=== PATIENT | female | born 1960 | race Caucasian/White ===

== ENCOUNTER → 2017-10-07 | Outpatient (CLI) | payer MEDICARE, BC ==
[~2017-10-07] MED LIST: ACYC5CRE2 TP; BETA15CR3 TP; CLC500CT PO; CYAN100053 IJ; DIAZ-345 PO; DIPH25TA82 PO; DOXE10CA PO; DULO60CA6 PO; EST45C VG; ESTR0.9T PO; ESTR42.52 VG; ESTRATEST HS PO; FRS325T PO; HYDR1TAB8 PO; LEVO75TA57 PO; LIOT5TAB6 PO; MELO7.5T PO; METF-380 PO; MULT-1029 PO; POLY119P PO; PREG75CA PO; RANI75TA30 PO; TERC45CR VG; TIZA4CAP PO; TR025C15 TOP
--- NOTE | 2017-10-07 08:22 | Diagnostic Imaging Report ---
INDICATION: Elevated liver enzymes. FINDINGS: The liver is slightly enlarged at 18.5 cm. No discrete liver mass is identified. The portal vein is patent and demonstrates normal direction of flow. The gallbladder is surgically absent. No biliary ductal dilatation is seen. The pancreas does appear to be somewhat obscured. Right kidney is unremarkable. There is no ascites. IMPRESSION: 1. Mild hepatomegaly. 2. Status post cholecystectomy. No acute feature is detected. Dictated by: Dictated on workstation # [id number]
== END ==
LOC: RAD 07:20
PROVIDERS: ATTEND Nurse Practitioner Family
DX: R16.0 Hepatomegaly, not elsewhere classified (principal); R74.0 Nonspecific elevation of levels of transaminase and lactic acid dehydrogenase [LDH]; Z90.49 Acquired absence of other specified parts of digestive tract
CPT/HCPCS: 76705

== ENCOUNTER → 2018-05-03 | Outpatient (CLI) | payer MEDICARE, BC | LOC: CARD 09:54 | PROVIDERS: ATTEND Internal Medicine Interventional Cardiology | DX: E11.9 Type 2 diabetes mellitus without complications (principal); R07.9 Chest pain, unspecified; E78.01 Familial hypercholesterolemia | CPT/HCPCS: 93306 ==

== ENCOUNTER → 2018-05-26 | Outpatient (CLI) | payer MEDICARE, BC ==
[~2018-05-26] VITALS: Ht 170.2 cm; Wt 93.9 kg
[~2018-05-26] MED LIST changes: +ATOR10TA PO; +BENZ0.5T42 PO; +BREX0.5T PO; +CANA100T PO; +CATHETER FLUSH 10 ML SYR IV PRN; +DOCU-143 PO; +DOXE10CA29 PO; +DULO60CA58 PO; +LEVO75TA6 PO; +MELA3TAB PO; +METF-397 PO; +METH750T3 PO; +OXYC10TA7 PO; +PANT40TA2 PO; +POLY17PO6 PO; +PREG150C PO; +REGADENOSON 0.4 MG/5 ML SYR (LEXISCAN) IV ONE; +RIVA1PAT TD; +TR025C15 TP; +[UNRECOGNIZED DRUG - CODE] PO
[2018-05-26 09:33] VITALS: BP 132/84
[2018-05-26 09:34] VITALS: BP 141/88
[2018-05-26 14:14] VITALS: BP 132/84
--- NOTE | 2018-05-26 14:14 | Cardiology Stress Test Report ---
Stress Test Report Type of NM Stress Test: Test Type: LEXISCAN 0.4MG/5ML Date of Procedure/Referring: Date of Procedure: May 26, 2018 PCP Enrique Sparrow MD Admitting Physician Magnolia Yang MD Indications: Chest pain, diabetes, familial hyperlipidemia. Baseline Heart Rate: 77 Baseline Blood Pressure: Blood Pressure Systolic: 132 Blood Pressure Diastolic: 84 Baseline EKG: Baseline EKG: sinus rhythm Summary & Conclusion: Summary: The patient was brought to the stress lab after informed consent was taken. Stress test was performed according to the Lexiscan protocol. 0.4 mg of IV Lexiscan was given. Low-grade exercise was performed. Baseline EKG showed sinus rhythm at 77 BPM. Initial blood pressure was 132/84 mmHg. Maximum heart rate was 101 bpm and blood pressure 141/88 mmHg. Patient did not have any chest pain, arrhythmias or ST segment changes during the stress test. 10.43 mCi of Myoview were given for rest imaging and 30.6 mCi of Myoview given for stress imaging. Transient ischemic dilatation score 1.04 , EF 71 percent. Normal wall motion. Mild small anterior reversible defect. SSS 14, SRS 7, SDS 6. Conclusion: Pharmacological stress test was negative for ischemia. Normal LV function with no wall motion abnormalities. Evidence of anterior ischemia. Coronary angiography is recommended. Enrique SPARROW MD May 26, 2018 2:14 pm
== END ==
LOC: CARD 08:00
PROVIDERS: ATTEND Internal Medicine Interventional Cardiology
DX: R07.9 Chest pain, unspecified (principal); E11.9 Type 2 diabetes mellitus without complications; E78.01 Familial hypercholesterolemia
CPT/HCPCS: 78452; 93017

== ENCOUNTER 2018-06-02 10:53 | Day surgery (SDC) | payer MEDICARE, BC ==
[2018-06-02] VITALS (9 sets, daily range): BP systolic 133–187; BP diastolic 77–100
[~2018-06-02] VITALS: Ht 170.2 cm; Wt 93.9 kg
[~2018-06-02 10:53] MED LIST changes: -ATOR10TA PO; -BENZ0.5T42 PO; -BREX0.5T PO; -CANA100T PO; -CATHETER FLUSH 10 ML SYR IV PRN; -DOCU-143 PO; -DOXE10CA29 PO; -DULO60CA58 PO; -LEVO75TA6 PO; -MELA3TAB PO; -METF-397 PO; -METH750T3 PO; -OXYC10TA7 PO; -PANT40TA2 PO; -POLY17PO6 PO; -PREG150C PO; -REGADENOSON 0.4 MG/5 ML SYR (LEXISCAN) IV ONE; -RIVA1PAT TD; -TR025C15 TP; -[UNRECOGNIZED DRUG - CODE] PO
[2018-06-02] MEDS ORDERED: HEParin 1000 UNIT/ML (10ML VIAL) FOR BOLUS ONE (11:12)
[2018-06-02] MEDS ORDERED: NS IV 1000 ML 3,000 ML ONE (11:13)
[2018-06-02] MEDS ORDERED: LIDOCAINE 1% INJ 20 ML 20 ML VIAL ONE (11:13)
[2018-06-02] MEDS ORDERED: NS IV 1000 ML 1,000 ML IV SCH ×2 (11:53→14:06)
[2018-06-02 12:00] LABS: HEMOGLOBIN 13.6 G/DL (11.5-16.0); MEAN PLATELET VOLUME 9.6 FL (7.4-10.4); RED BLOOD COUNT 4.56 10^6/uL (4.35-5.85); RED CELL DISTRIBUTION WIDTH 13.8 % (10.0-14.5); WHITE BLOOD COUNT 7.2 10^3/uL (4.3-11.0)
--- NOTE | 2018-06-02 12:03 | Cardiac Procedure Note-CS/ASA ---
Pre-Procedure Note Pre-Op Procedure Note H&P Reviewed The H&P was reviewed, patient examined and no changes noted. Date H&P Reviewed: Jun 02, 2018 Time H&P Reviewed: 12:03 Conscious Sedation Pre-Proced Time Reviewed: 12:03 ASA Class: 3 Airway Mallampati Classification: (ione appropriate class) I. II. III, IV Lungs Heart ASA score ASA 1: a normal healthy patient ASA 2: a patient with a mild systemic disease (mid diabetes, controlled hypertension, obesity ASA 3: a patient with a severe systemic disease that limits activity (angina , COPD, prior Myocardial infarction) ASA 4: a patient with an incapacitating disease that is a constant threat to life (CHF, renal failure) ASA 5: a moribund patient not expected to survive 24 hrs. (ruptured aneurysm) ASA 6: a declared brain patient whose organs are being harvested. For emergent operations, add the letter E after the classification Grade 1 Sedation Plan: Analgesia, Amnesia, Plan communicated to team members, Discussed options with patient/fam, Discussed risks with patient/fam Note The patient is an appropriate candidate to undergo the planned procedure, sedation, and anesthesia. The patient immediately re-assessed prior to indication. Enrique ROSAS MD Jun 02, 2018 12:03 pm
--- OUTSIDE RECORDS SUMMARY | 2018-06-02 12:05 | XMS REPORT | CCD ---
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 capsule,delayed release RxNorm: 912891 2 Capsule(s) PO daily No Start Date 08/31/2017 Inactive betamethasone valerate 0.1 % topical ointment RxNorm: 659111 1 Application TOP BID PRN No Start Date 04/05/2016 Inactive Lyrica 150 mg capsule RxNorm: 351863 1 Capsule(s) PO TID No Start Date 04/05/2016 Inactive Diflucan 150 mg tablet RxNorm: 698916 1 Tablet(s) PO daily No Start Date 09/22/2016 Inactive triamcinolone acetonide 0.025 % topical cream RxNorm: 3448059 1 Application TOP TID PRN No Start Date 10/13/2016 Inactive finger fungus lactulose 20 gram/30 mL oral solution RxNorm: 462208 30 Milliliter(s) PO BID No Start Date 08/31/2017 Inactive doxepin 10 mg capsule RxNorm: 1025290 1 Capsule(s) PO TID No Start Date 08/31/2017 Inactive Medication Administered Medication Codes Instructions Start Date Status cyanocobalamin (vit B-12) 1,000 mcg/mL injection solution RxNorm: 613984 Milliliter 04/06/2016 No longer Active cyanocobalamin (vit B-12) 1,000 mcg/mL injection solution RxNorm: 872032 Milliliter 02/13/2016 No longer Active Immunizations Vaccine Codes Date Status Influenza CVX: 141 07/01/2016 completed Influenza CVX: 141 07/21/2014 completed Assessments Condition Codes Effective Dates Chronic pain syndrome ICD-10: G89.4 ICD-9: 338.4 09/28/2017 Type 2 diabetes mellitus without complications ICD-10: E11.9 ICD-9: 250.00 09/28/2017 Essential (primary) hypertension ICD-10: I10 ICD-9: 401.9 09/28/2017 Major depressive disorder, single episode, severe with psychotic features ICD-10: F32.3 ICD-9: 296.20 08/19/2017 Cervicalgia ICD-10: M54.2 ICD-9: 723.1 08/19/2017 Low back pain ICD-10: M54.5 ICD-9: 724.2 08/19/2017 Drug induced akathisia ICD-10: G25.71 ICD-9: 781.0 07/27/2017 Generalized anxiety disorder ICD-10: F41.1 ICD-9: 300.00 07/27/2017 Functional diarrhea ICD-10: K59.1 ICD-9: 564.5 06/17/2017 Type 2 diabetes mellitus with hyperglycemia ICD-10: E11.65 ICD-9: 250.00 05/31/2017 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 ICD-9: 244.8 05/31/2017 Vitamin B12 deficiency anemia due to intrinsic factor deficiency ICD-10: D51.0 ICD-9: 281.0 11/25/2016 Personal history of other diseases of the digestive system ICD-10: Z87.19 ICD-9: V12.79 09/02/2016 Other diseases of salivary glands ICD-10: K11.8 ICD-9: 527.8 09/02/2016 Other hypertrophic disorders of the skin ICD-10: L91.8 ICD-9: 701.9 09/02/2016 Actinic keratosis ICD-10: L57.0 ICD-9: 702.0 09/02/2016 Slow transit constipation ICD-10: K59.01 ICD-9: 564.01 07/01/2016 Encounter for immunization ICD-10: Z23 ICD-9: V04.81 07/01/2016 Other obesity due to excess calories ICD-10: E66.09 ICD-9: 278.00 02/13/2016 Low back pain ICD-10: M54.5 ICD-9: 724.5 01/07/2016 Abnormal levels of other serum enzymes ICD-10: R74.8 ICD-9: 790.5 11/26/2015 Unspecified conjunctivitis ICD-10: H10.9 ICD-9: 372.30 07/31/2015 Hypothyroidism, unspecified ICD-10: E03.9 ICD-9: 244.9 07/31/2015 Other depressive episodes ICD-10: F32.8 ICD-9: 311 07/31/2015 BACKACHE ICD-9: 724.5 05/03/2015 HYPOTHYROIDISM ICD-9: 244.9 05/03/2015 CHRONIC PAIN SYNDROME ICD-9: 338.4 2014 Diabetes mellitus ICD-9: 250.00 2014 Depression ICD-9: 311 02/07/2015 Anxiety ICD-9: 300.00 02/07/2015 Reason For Visit Reason For Visit Effective Dates Notes diabetes mellitus 09/28/2017 Hospital Follow Up 08/19/2017 spasms/spasticity 07/27/2017 of the tongue, resolved diarrhea 07/01/2017 resolved diarrhea 06/17/2017 of the tongue diabetes mellitus 05/31/2017 diabetes mellitus 01/27/2017 diabetes mellitus 11/25/2016 diabetes mellitus 09/02/2016 diabetes mellitus 07/01/2016 constipation 06/03/2016 diabetes mellitus 04/06/2016 diabetes mellitus 02/13/2016 diabetes mellitus 01/07/2016 back pain 11/26/2015 hypothyroid 10/28/2015 eye discharge 07/31/2015 hypothyroid 05/03/2015 hypothyroid 02/07/2015 in the am upon waking up. Results Observation Observation Code Item Item Code Result Date Hepatic Bus679 ALBUMIN 4.1 g/dL 10/08/2017 Hepatic Epk775 TPRO 7.1 g/dL 10/08/2017 Hepatic Bma920 GLOB 3.0 g/dL 10/08/2017 Hepatic Pqh114 A/G Ratio 1.4 Ratio 10/08/2017 Hepatic Ycr999 ALK PHOS 199 U/L 10/08/2017 Hepatic Fle805 ALT(SGPT) 48 U/L 10/08/2017 Hepatic Qgo683 AST(SGOT) 41 U/L 10/08/2017 Hepatic Tfo679 BILI T 0.3 mg/dL 10/08/2017 Hepatic Nef115 BILI D 0.1 mg/dL 10/08/2017 Hepatic Vux151 BILI I 0.2 mg/dL 10/08/2017 Tsh Ord6 hTSH II 1.30 uIU/mL 12/03/2016 Free T4 Kvc425 FREE T4 0.83 ng/dL 12/03/2016 Lipid Ord30 CHOL 295 mg/dL 12/03/2016 Lipid Ord30 HDL 51.0 mg/dl 12/03/2016 Lipid Ord30 TRIG 286 mg/dL 12/03/2016 Lipid Ord30 LDL 187 mg/dL 12/03/2016 Lipid Ord30 C/HDL 5.8 Ratio 12/03/2016 Microalbumin Ntz940 MicroAlb <0.7 mg/dL 12/03/2016 Cbc With Differential Ord2 WBC 6.94 K/ul 12/03/2016 Cbc With Differential Ord2 RBC 4.69 M/ul 12/03/2016 Cbc With Differential Ord2 HGB 13.9 g/dl 12/03/2016 Cbc With Differential Ord2 Neut% 66.1 % 12/03/2016 Cbc With Differential Ord2 HCT 41.8 % 12/03/2016 Cbc With Differential Ord2 Lymph% 23.1 % 12/03/2016 Cbc With Differential Ord2 MCV 89.1 fl 12/03/2016 Cbc With Differential Ord2 MCH 29.6 pg 12/03/2016 Cbc With Differential Ord2 Alfalfa% 6.6 % 12/03/2016 Cbc With Differential Ord2 MCHC 33.3 pg 12/03/2016 Cbc With Differential Ord2 Eos% 3.9 % 12/03/2016 Cbc With Differential Ord2 PLT 312 K/ul 12/03/2016 Cbc With Differential Ord2 Baso% 0.3 % 12/03/2016 Cbc With Differential Ord2 Neut ABS# 4.59 K/ul 12/03/2016 Cbc With Differential Ord2 RDW 14.8 % 12/03/2016 Cbc With Differential Ord2 Lymph ABS# 1.60 K/ul 12/03/2016 Cbc With Differential Ord2 Alfalfa ABS# 0.5 K/ul 12/03/2016 Cbc With Differential Ord2 Eos ABS# 0.3 K/ul 12/03/2016 Cbc With Differential Ord2 Baso ABS# 0.0 K/ul 12/03/2016 Comp Metabolic Pmz946 NA 136 mEq/L 12/03/2016 Comp Metabolic Ihj618 K 4.6 mEq/L 12/03/2016 Comp Metabolic Qbh293 CL 99 mEq/L 12/03/2016 Comp Metabolic Hne685 CO2 29.0 mEq/L 12/03/2016 Comp Metabolic Rhu329 ANION GAP 13 12/03/2016 Comp Metabolic Kkh715 GLUCOSE 116 mg/dL 12/03/2016 Comp Metabolic Zhi094 Creat 0.8 mg/dL 12/03/2016 Comp Metabolic Ztu681 eGFR 76 ml/min/1.73m2 12/03/2016 Comp Metabolic Nqi044 BUN 18 mg/dL 12/03/2016 Comp Metabolic Xbq864 B/C Ratio 22.0 Ratio 12/03/2016 Comp Metabolic Myt945 CALCIUM 9.7 mg/dL 12/03/2016 Comp Metabolic Ays231 ALK PHOS 184 U/L 12/03/2016 Comp Metabolic Rgq660 AST(SGOT) 32 U/L 12/03/2016 Comp Metabolic Ree164 ALT(SGPT) 37 U/L 12/03/2016 Comp Metabolic Aae228 BILI T 0.3 mg/dL 12/03/2016 Comp Metabolic Jrh819 ALBUMIN 4.2 g/dL 12/03/2016 Comp Metabolic Rht646 TPRO 7.3 g/dL 12/03/2016 Comp Metabolic Vyw805 GLOB 3.2 g/dL 12/03/2016 Comp Metabolic Wnz340 A/G Ratio 1.3 Ratio 12/03/2016 Comp Metabolic Bic551 Osmo 275 mOsmo 12/03/2016 %Hba1C Yih538 % HbA1c 93256-3 6.9 % 12/03/2016 %Hba1C Xzj870 Gluc Ave 151 mg/dL 12/03/2016 Lipid Ord30 CHOL 258 mg/dL 06/01/2016 Lipid Ord30 HDL 45.0 mg/dl 06/01/2016 Lipid Ord30 TRIG 212 mg/dL 06/01/2016 Lipid Ord30 LDL 171 mg/dL 06/01/2016 Lipid Ord30 C/HDL 5.7 Ratio 06/01/2016 %Hba1C Ftl398 % HbA1c 69553-1 7.0 % 06/01/2016 %Hba1C Bko013 Gluc Ave 154 mg/dL 06/01/2016 T4 Ord4 T4 9.1 ug/dL 06/01/2016 Tsh Ord6 hTSH II 1.10 uIU/mL 06/01/2016 Cbc With Differential Ord2 WBC 7.22 K/ul 06/01/2016 Cbc With Differential Ord2 RBC 4.62 M/ul 06/01/2016 Cbc With Differential Ord2 HGB 13.5 g/dl 06/01/2016 Cbc With Differential Ord2 HCT 41.0 % 06/01/2016 Cbc With Differential Ord2 Neut% 63.6 % 06/01/2016 Cbc With Differential Ord2 MCV 88.7 fl 06/01/2016 Cbc With Differential Ord2 Lymph% 23.8 % 06/01/2016 Cbc With Differential Ord2 Alfalfa% 7.5 % 06/01/2016 Cbc With Differential Ord2 MCH 29.2 pg 06/01/2016 Cbc With Differential Ord2 MCHC 32.9 pg 06/01/2016 Cbc With Differential Ord2 Eos% 4.7 % 06/01/2016 Cbc With Differential Ord2 PLT 336 K/ul 06/01/2016 Cbc With Differential Ord2 Baso% 0.4 % 06/01/2016 Cbc With Differential Ord2 RDW 14.6 % 06/01/2016 Cbc With Differential Ord2 Neut ABS# 4.59 K/ul 06/01/2016 Cbc With Differential Ord2 Lymph ABS# 1.72 K/ul 06/01/2016 Cbc With Differential Ord2 Alfalfa ABS# 0.5 K/ul 06/01/2016 Cbc With Differential Ord2 Eos ABS# 0.3 K/ul 06/01/2016 Cbc With Differential Ord2 Baso ABS# 0.0 K/ul 06/01/2016 Comp Metabolic Lld995 NA 135 mEq/L 06/01/2016 Comp Metabolic Rtw871 K 4.3 mEq/L 06/01/2016 Comp Metabolic Vyw948 CL 102 mEq/L 06/01/2016 Comp Metabolic Rtc553 CO2 26.0 mEq/L 06/01/2016 Comp Metabolic Hey645 ANION GAP 11 06/01/2016 Comp Metabolic Xly808 GLUCOSE 101 mg/dL 06/01/2016 Comp Metabolic Gow980 Creat 0.8 mg/dL 06/01/2016 Comp Metabolic Urv061 eGFR 80 ml/min/1.73m2 06/01/2016 Comp Metabolic Ygi416 BUN 19 mg/dL 06/01/2016 Comp Metabolic Czc248 B/C Ratio 24.1 Ratio 06/01/2016 Comp Metabolic Mrt368 CALCIUM 9.9 mg/dL 06/01/2016 Comp Metabolic Pxb905 ALK PHOS 254 U/L 06/01/2016 Comp Metabolic Eey597 AST(SGOT) 30 U/L 06/01/2016 Comp Metabolic Xho585 ALT(SGPT) 41 U/L 06/01/2016 Comp Metabolic Jxo861 BILI T 0.3 mg/dL 06/01/2016 Comp Metabolic Ctd458 ALBUMIN 4.2 g/dL 06/01/2016 Comp Metabolic Jnn389 TPRO 7.4 g/dL 06/01/2016 Comp Metabolic Uik370 GLOB 3.2 g/dL 06/01/2016 Comp Metabolic Mnl827 A/G Ratio 1.3 Ratio 06/01/2016 Comp Metabolic Vsf968 Osmo 272 mOsmo 06/01/2016 B12 Kyy201 B12 1247.00 pg/ml 06/01/2016 Comp Metabolic Uaz361 NA 136 mEq/L 12/17/2015 Comp Metabolic Mhw282 K 4.2 mEq/L 12/17/2015 Comp Metabolic Zhy159 CL 97 mEq/L 12/17/2015 Comp Metabolic Rli768 CO2 33.0 mEq/L 12/17/2015 Comp Metabolic Pzh376 ANION GAP 10 12/17/2015 Comp Metabolic Isd712 GLUCOSE 205 mg/dL 12/17/2015 Comp Metabolic Fto014 Creat 0.7 mg/dL 12/17/2015 Comp Metabolic Dzc351 eGFR 90 ml/min/1.73m2 12/17/2015 Comp Metabolic Rqv548 BUN 19 mg/dL 12/17/2015 Comp Metabolic Vcy657 B/C Ratio 26.8 Ratio 12/17/2015 Comp Metabolic Uws853 CALCIUM 9.6 mg/dL 12/17/2015 Comp Metabolic Uyc027 ALK PHOS 299 U/L 12/17/2015 Comp Metabolic Ljf241 AST(SGOT) 54 U/L 12/17/2015 Comp Metabolic Qaa863 ALT(SGPT) 108 U/L 12/17/2015 Comp Metabolic Fxg192 BILI T 0.3 mg/dL 12/17/2015 Comp Metabolic Vac510 ALBUMIN 4.2 g/dL 12/17/2015 Comp Metabolic Dyi597 TPRO 7.3 g/dL 12/17/2015 Comp Metabolic Guy724 GLOB 3.1 g/dL 12/17/2015 Comp Metabolic Yre606 A/G Ratio 1.3 Ratio 12/17/2015 Comp Metabolic Zro936 Osmo 280 mOsmo 12/17/2015 Comp Metabolic Fru534 NA 135 mEq/L 11/18/2015 Comp Metabolic Nxb703 K 4.1 mEq/L 11/18/2015 Comp Metabolic Blx309 CL 97 mEq/L 11/18/2015 Comp Metabolic Eua305 CO2 28.0 mEq/L 11/18/2015 Comp Metabolic Rzu767 ANION GAP 14 11/18/2015 Comp Metabolic Sur077 GLUCOSE 144 mg/dL 11/18/2015 Comp Metabolic Zfn236 Creat 0.7 mg/dL 11/18/2015 Comp Metabolic Jid737 eGFR 93 ml/min/1.73m2 11/18/2015 Comp Metabolic Fej844 BUN 23 mg/dL 11/18/2015 Comp Metabolic Cwm761 B/C Ratio 33.3 Ratio 11/18/2015 Comp Metabolic Zvn095 CALCIUM 9.6 mg/dL 11/18/2015 Comp Metabolic Thy221 ALK PHOS 245 U/L 11/18/2015 Comp Metabolic Zru203 AST(SGOT) 86 U/L 11/18/2015 Comp Metabolic Hjl009 ALT(SGPT) 132 U/L 11/18/2015 Comp Metabolic Xdn163 BILI T 0.3 mg/dL 11/18/2015 Comp Metabolic Duk091 ALBUMIN 4.2 g/dL 11/18/2015 Comp Metabolic Nur848 TPRO 7.2 g/dL 11/18/2015 Comp Metabolic Iaf898 GLOB 3.0 g/dL 11/18/2015 Comp Metabolic Dgn750 A/G Ratio 1.4 Ratio 11/18/2015 Comp Metabolic Mlo270 Osmo 276 mOsmo 11/18/2015 Tsh Ord6 hTSH II 2.00 uIU/mL 10/25/2015 Cbc With Differential Ord2 WBC 6.89 K/ul 10/25/2015 Cbc With Differential Ord2 RBC 4.18 M/ul 10/25/2015 Cbc With Differential Ord2 HGB 13.1 g/dl 10/25/2015 Cbc With Differential Ord2 Neut% 60.1 % 10/25/2015 Cbc With Differential Ord2 HCT 39.8 % 10/25/2015 Cbc With Differential Ord2 MCV 95.2 fl 10/25/2015 Cbc With Differential Ord2 Lymph% 25.5 % 10/25/2015 Cbc With Differential Ord2 MCH 31.3 pg 10/25/2015 Cbc With Differential Ord2 Alfalfa% 6.4 % 10/25/2015 Cbc With Differential Ord2 MCHC 32.9 pg 10/25/2015 Cbc With Differential Ord2 Eos% 7.7 % 10/25/2015 Cbc With Differential Ord2 Baso% 0.3 % 10/25/2015 Cbc With Differential Ord2 PLT 339 K/ul 10/25/2015 Cbc With Differential Ord2 Neut ABS# 4.14 K/ul 10/25/2015 Cbc With Differential Ord2 RDW 13.5 % 10/25/2015 Cbc With Differential Ord2 Lymph ABS# 1.76 K/ul 10/25/2015 Cbc With Differential Ord2 Alfalfa ABS# 0.4 K/ul 10/25/2015 Cbc With Differential Ord2 Eos ABS# 0.5 K/ul 10/25/2015 Cbc With Differential Ord2 Baso ABS# 0.0 K/ul 10/25/2015 Cbc With Differential Ord2 New Analyzer Notice Please note new ref ranges starting 10-02-2015 due to implemntation of new five part differential hematolgy analyzer. 10/25/2015 Ferritin Ord22 FERRITIN 49.1 ng/mL 10/25/2015 %Hba1C Evf932 % HbA1c 19902-9 6.7 % 10/25/2015 %Hba1C Qwc234 Gluc Ave 146 mg/dL 10/25/2015 Free T4 Xmu404 FREE T4 0.74 ng/dL 10/25/2015 Tibc Ord40 Iron 71 ug/dl 10/25/2015 Tibc Ord40 UIBC 340 ug/dL 10/25/2015 Tibc Ord40 TIBC 411 ug/dL 10/25/2015 Tibc Ord40 Fe-%Sat 17.3 % 10/25/2015 Lipid Ord30 CHOL 378 mg/dL 10/25/2015 Lipid Ord30 HDL 70.0 mg/dl 10/25/2015 Lipid Ord30 TRIG 538 mg/dL 10/25/2015 Lipid Ord30 LDL 200 mg/dL 10/25/2015 Lipid Ord30 C/HDL 5.4 Ratio 10/25/2015 Comp Metabolic Osp768 NA 136 mEq/L 10/25/2015 Comp Metabolic Dmq697 K 4.2 mEq/L 10/25/2015 Comp Metabolic Qzl984 CL 97 mEq/L 10/25/2015 Comp Metabolic Lfk469 CO2 30.0 mEq/L 10/25/2015 Comp Metabolic Ixd973 ANION GAP 13 10/25/2015 Comp Metabolic Wbt689 GLUCOSE 108 mg/dL 10/25/2015 Comp Metabolic Yjo587 Creat 0.7 mg/dL 10/25/2015 Comp Metabolic Uyo878 eGFR 90 ml/min/1.73m2 10/25/2015 Comp Metabolic Drs568 BUN 14 mg/dL 10/25/2015 Comp Metabolic Uob769 B/C Ratio 19.7 Ratio 10/25/2015 Comp Metabolic Ivz967 CALCIUM 9.8 mg/dL 10/25/2015 Comp Metabolic Rid195 ALK PHOS 299 U/L 10/25/2015 Comp Metabolic Naj978 AST(SGOT) 106 U/L 10/25/2015 Comp Metabolic Hem753 ALT(SGPT) 159 U/L 10/25/2015 Comp Metabolic Xiq841 BILI T 0.4 mg/dL 10/25/2015 Comp Metabolic Cuv676 ALBUMIN 4.4 g/dL 10/25/2015 Comp Metabolic Vyq651 TPRO 7.5 g/dL 10/25/2015 Comp Metabolic Nja254 GLOB 3.1 g/dL 10/25/2015 Comp Metabolic Cas725 A/G Ratio 1.4 Ratio 10/25/2015 Comp Metabolic Ojv143 Osmo 273 mOsmo 10/25/2015 Review of Systems System Result Effective Dates Constitutional No recent illness 2017 Constitutional No anorexia 09/28/2017 Constitutional No night sweats 2017 Constitutional No chills 09/28/2017 Constitutional No diaphoresis 09/28/2017 Constitutional No fatigue 09/28/2017 Constitutional No fever 09/28/2017 Constitutional No insomnia 09/28/2017 Constitutional No malaise 09/28/2017 Eyes No eye erythema 09/28/2017 Ears/Nose/Throat/Neck No headache 2017 Cardiovascular No chest pain/pressure 05/2018 Cardiovascular No dyspnea 09/28/2017 Cardiovascular No edema 09/28/2017 Respiratory No productive sputum 2017 Respiratory No cigarette smoking 2017 Respiratory No dyspnea on exertion 2017 Gastrointestinal abdominal pain 2017 Gastrointestinal constipation 09/28/2017 Gastrointestinal No diarrhea 09/28/2017 Musculoskeletal No joint complaint 2017 Dermatologic No rash 09/28/2017 Neurologic No alteration of consciousness 09/28/2017 Psychiatric anxiety 09/28/2017 Psychiatric depression 09/28/2017 Psychiatric No suicidality 09/28/2017 Endocrine diabetes mellitus type 2 2017 Constitutional No recent illness 2016 Constitutional No anorexia 08/19/2017 Constitutional No night sweats 2016 Constitutional No chills 08/19/2017 Constitutional No diaphoresis 08/19/2017 Constitutional No fatigue 08/19/2017 Constitutional No fever 08/19/2017 Constitutional No insomnia 08/19/2017 Constitutional No malaise 08/19/2017 Eyes No eye erythema 08/19/2017 Ears/Nose/Throat/Neck No headache 2016 Cardiovascular No chest pain/pressure Cardiovascular No dyspnea 08/19/2017 Cardiovascular No edema 08/19/2017 Respiratory No productive sputum 2016 Respiratory No cigarette smoking 2016 Respiratory No dyspnea on exertion 2016 Gastrointestinal abdominal pain 2016 Gastrointestinal constipation 08/19/2017 Gastrointestinal No diarrhea 08/19/2017 Genitourinary/Nephrology No dysuria 08/19 Musculoskeletal No joint complaint 2016 Dermatologic No rash 08/19/2017 Neurologic No alteration of consciousness 08/19/2017 Psychiatric anxiety 08/19/2017 Psychiatric depression 08/19/2017 Psychiatric No suicidality 08/19/2017 Endocrine diabetes mellitus type 2 2016 Constitutional No recent illness 2016 Constitutional No chills 07/27/2017 Constitutional No diaphoresis 07/27/2017 Constitutional fatigue 07/27/2017 Constitutional No fever 07/27/2017 Constitutional No insomnia 07/27/2017 Constitutional malaise 07/27/2017 Constitutional weight loss 07/27/2017 Ears/Nose/Throat/Neck No oral pain 2016 Cardiovascular No chest pain/pressure 03/2017 Cardiovascular No dyspnea 07/27/2017 Cardiovascular No edema 07/27/2017 Respiratory No productive sputum 2016 Respiratory No cigarette smoking 2016 Respiratory No dyspnea on exertion 2016 Gastrointestinal abdominal pain 2016 Gastrointestinal No constipation 2016 Gastrointestinal diarrhea 07/27/2017 Neurologic No ataxia 07/27/2017 Neurologic dyskinesia or tremor 2016 Psychiatric anxiety 07/27/2017 Psychiatric depression 07/27/2017 Psychiatric No suicidality 07/27/2017 Endocrine diabetes mellitus type 2 2016 Musculoskeletal stiffness 07/27/2017 Musculoskeletal No swelling 07/27/2017 Musculoskeletal muscle weakness 2016 Psychiatric disturbances of emotion 07/27 Psychiatric disturbances of thinking 03/2017 Constitutional No recent illness 2016 Constitutional No night sweats 2016 Constitutional No chills 07/01/2017 Constitutional No diaphoresis 07/01/2017 Constitutional fatigue 07/01/2017 Constitutional No fever 07/01/2017 Constitutional No insomnia 07/01/2017 Constitutional No malaise 07/01/2017 Constitutional weight loss 07/01/2017 Eyes No eye erythema 07/01/2017 Ears/Nose/Throat/Neck No headache 2016 Cardiovascular No chest pain/pressure 08/2017 Cardiovascular No dyspnea 07/01/2017 Cardiovascular No edema 07/01/2017 Respiratory No productive sputum 2016 Respiratory No cigarette smoking 2016 Respiratory No dyspnea on exertion 2016 Gastrointestinal No diarrhea 07/01/2017 Musculoskeletal No joint complaint 2016 Neurologic No alteration of consciousness 07/01/2017 Psychiatric anxiety 07/01/2017 Psychiatric depression 07/01/2017 Psychiatric No suicidality 07/01/2017 Musculoskeletal stiffness 07/01/2017 Gastrointestinal No abdominal pain 2016 Constitutional No recent illness 2016 Constitutional No chills 06/17/2017 Constitutional No diaphoresis 06/17/2017 Constitutional fatigue 06/17/2017 Constitutional No insomnia 06/17/2017 Constitutional malaise 06/17/2017 Constitutional weight loss 06/17/2017 Cardiovascular No chest pain/pressure Cardiovascular No dyspnea 06/17/2017 Cardiovascular No edema 06/17/2017 Respiratory No productive sputum 2016 Respiratory No cigarette smoking 2016 Respiratory No dyspnea on exertion 2016 Gastrointestinal abdominal pain 2016 Gastrointestinal diarrhea 06/17/2017 Psychiatric anxiety 06/17/2017 Psychiatric depression 06/17/2017 Psychiatric No suicidality 06/17/2017 Endocrine diabetes mellitus type 2 2016 Constitutional No fever 06/17/2017 Gastrointestinal No constipation 2016 Ears/Nose/Throat/Neck No oral pain 2016 Neurologic No ataxia 06/17/2017 Neurologic dyskinesia or tremor 2016 Constitutional No recent illness 2016 Constitutional No anorexia 05/31/2017 Constitutional No night sweats 2016 Constitutional No chills 05/31/2017 Constitutional No diaphoresis 05/31/2017 Constitutional No fatigue 05/31/2017 Constitutional No fever 05/31/2017 Constitutional No insomnia 05/31/2017 Constitutional No malaise 05/31/2017 Eyes No eye erythema 05/31/2017 Ears/Nose/Throat/Neck No headache 2016 Cardiovascular No chest pain/pressure 07/2017 Cardiovascular No dyspnea 05/31/2017 Cardiovascular No edema 05/31/2017 Respiratory No productive sputum 2016 Respiratory No cigarette smoking 2016 Respiratory No dyspnea on exertion 2016 Gastrointestinal abdominal pain 2016 Gastrointestinal constipation 05/31/2017 Gastrointestinal No diarrhea 05/31/2017 Genitourinary/Nephrology No dysuria 05/31 Musculoskeletal No joint complaint 2016 Dermatologic No rash 05/31/2017 Neurologic No alteration of consciousness 05/31/2017 Psychiatric anxiety 05/31/2017 Psychiatric depression 05/31/2017 Psychiatric No suicidality 05/31/2017 Endocrine diabetes mellitus type 2 2016 Constitutional weight loss 05/31/2017 Constitutional No recent illness 2016 Constitutional No anorexia 01/27/2017 Constitutional No night sweats 2016 Constitutional No chills 01/27/2017 Constitutional No diaphoresis 01/27/2017 Constitutional No fatigue 01/27/2017 Constitutional No fever 01/27/2017 Constitutional No insomnia 01/27/2017 Constitutional No malaise 01/27/2017 Eyes No eye erythema 01/27/2017 Ears/Nose/Throat/Neck No headache 2016 Cardiovascular No chest pain/pressure 06/2017 Cardiovascular No dyspnea 01/27/2017 Cardiovascular No edema 01/27/2017 Respiratory No productive sputum 2016 Respiratory No cigarette smoking 2016 Respiratory No dyspnea on exertion 2016 Gastrointestinal constipation 01/27/2017 Gastrointestinal No diarrhea 01/27/2017 Genitourinary/Nephrology No dysuria 01/27 Musculoskeletal No joint complaint 2016 Dermatologic No rash 01/27/2017 Neurologic No alteration of consciousness 01/27/2017 Psychiatric anxiety 01/27/2017 Psychiatric depression 01/27/2017 Psychiatric No suicidality 01/27/2017 Endocrine diabetes mellitus type 2 2016 Constitutional No recent illness 2016 Constitutional No anorexia 11/25/2016 Constitutional No night sweats 2016 Constitutional No chills 11/25/2016 Constitutional No diaphoresis 11/25/2016 Constitutional No fatigue 11/25/2016 Constitutional No fever 11/25/2016 Constitutional No insomnia 11/25/2016 Constitutional No malaise 11/25/2016 Eyes No eye erythema 11/25/2016 Ears/Nose/Throat/Neck No headache 2016 Cardiovascular No chest pain/pressure 04/2017 Cardiovascular No dyspnea 11/25/2016 Cardiovascular No edema 11/25/2016 Respiratory No productive sputum 2016 Respiratory No cigarette smoking 2016 Respiratory No dyspnea on exertion 2016 Gastrointestinal abdominal pain 2016 Gastrointestinal constipation 11/25/2016 Gastrointestinal No diarrhea 11/25/2016 Genitourinary/Nephrology No dysuria 11/25 Musculoskeletal No joint complaint 2016 Dermatologic No rash 11/25/2016 Neurologic No alteration of consciousness 11/25/2016 Psychiatric anxiety 11/25/2016 Psychiatric depression 11/25/2016 Psychiatric No suicidality 11/25/2016 Endocrine diabetes mellitus type 2 2016 Constitutional No recent illness 2015 Constitutional No anorexia 09/02/2016 Constitutional No night sweats 2015 Constitutional No chills 09/02/2016 Constitutional No diaphoresis 09/02/2016 Constitutional No fatigue 09/02/2016 Constitutional No fever 09/02/2016 Constitutional No insomnia 09/02/2016 Constitutional No malaise 09/02/2016 Eyes No eye erythema 09/02/2016 Ears/Nose/Throat/Neck No headache 2015 Cardiovascular No chest pain/pressure Cardiovascular No dyspnea 09/02/2016 Cardiovascular No edema 09/02/2016 Respiratory No productive sputum 2015 Respiratory No cigarette smoking 2015 Respiratory No dyspnea on exertion 2015 Gastrointestinal abdominal pain 2015 Gastrointestinal constipation 09/02/2016 Gastrointestinal No diarrhea 09/02/2016 Genitourinary/Nephrology No dysuria 09/02 Musculoskeletal No joint complaint 2015 Dermatologic No rash 09/02/2016 Neurologic No alteration of consciousness 09/02/2016 Psychiatric anxiety 09/02/2016 Psychiatric No suicidality 09/02/2016 Endocrine diabetes mellitus type 2 2015 Psychiatric depression 09/02/2016 Dermatologic mole change 09/02/2016 Constitutional No recent illness 2015 Constitutional No anorexia 07/01/2016 Constitutional No night sweats 2015 Constitutional No chills 07/01/2016 Constitutional No diaphoresis 07/01/2016 Constitutional No fatigue 07/01/2016 Constitutional No fever 07/01/2016 Constitutional No insomnia 07/01/2016 Constitutional No malaise 07/01/2016 Eyes No eye erythema 07/01/2016 Ears/Nose/Throat/Neck No headache 2015 Cardiovascular No chest pain/pressure 08/2016 Cardiovascular No dyspnea 07/01/2016 Cardiovascular No edema 07/01/2016 Respiratory No productive sputum 2015 Respiratory No cigarette smoking 2015 Respiratory No dyspnea on exertion 2015 Gastrointestinal abdominal pain 2015 Gastrointestinal constipation 07/01/2016 Gastrointestinal No diarrhea 07/01/2016 Genitourinary/Nephrology No dysuria 07/01 Musculoskeletal No joint complaint 2015 Dermatologic No rash 07/01/2016 Neurologic No alteration of consciousness 07/01/2016 Psychiatric anxiety 07/01/2016 Psychiatric depression 07/01/2016 Psychiatric No suicidality 07/01/2016 Endocrine diabetes mellitus type 2 2015 Constitutional No recent illness 2015 Constitutional No anorexia 06/03/2016 Constitutional No night sweats 2015 Constitutional No chills 06/03/2016 Constitutional No diaphoresis 06/03/2016 Constitutional No fatigue 06/03/2016 Constitutional No fever 06/03/2016 Constitutional No insomnia 06/03/2016 Constitutional No malaise 06/03/2016 Eyes No eye erythema 06/03/2016 Ears/Nose/Throat/Neck No headache 2015 Cardiovascular No chest pain/pressure Cardiovascular No dyspnea 06/03/2016 Cardiovascular No edema 06/03/2016 Respiratory No productive sputum 2015 Respiratory No cigarette smoking 2015 Respiratory No dyspnea on exertion 2015 Gastrointestinal abdominal pain 2015 Gastrointestinal constipation 06/03/2016 Gastrointestinal No diarrhea 06/03/2016 Genitourinary/Nephrology No dysuria 06/03 Musculoskeletal No joint complaint 2015 Dermatologic No rash 06/03/2016 Neurologic No alteration of consciousness 06/03/2016 Psychiatric anxiety 06/03/2016 Psychiatric depression 06/03/2016 Psychiatric No suicidality 06/03/2016 Endocrine diabetes mellitus type 2 2015 Constitutional No recent illness 2015 Constitutional No anorexia 04/06/2016 Constitutional No night sweats 2015 Constitutional No chills 04/06/2016 Constitutional No diaphoresis 04/06/2016 Constitutional No fatigue 04/06/2016 Constitutional No fever 04/06/2016 Constitutional No insomnia 04/06/2016 Constitutional No malaise 04/06/2016 Constitutional No weight loss 04/06/2016 Constitutional No weight gain 04/06/2016 Eyes No eye discharge 04/06/2016 Eyes No eye erythema 04/06/2016 Ears/Nose/Throat/Neck No headache 2015 Cardiovascular No chest pain/pressure Cardiovascular No dyspnea 04/06/2016 Cardiovascular No edema 04/06/2016 Respiratory No productive sputum 2015 Respiratory No cigarette smoking 2015 Respiratory No dyspnea on exertion 2015 Gastrointestinal No abdominal pain 2015 Gastrointestinal No constipation 2015 Gastrointestinal No diarrhea 04/06/2016 Genitourinary/Nephrology No dysuria 04/06 Musculoskeletal No joint complaint 2015 Dermatologic No rash 04/06/2016 Neurologic No alteration of consciousness 04/06/2016 Psychiatric anxiety 04/06/2016 Psychiatric depression 04/06/2016 Psychiatric No suicidality 04/06/2016 Constitutional No recent illness 2015 Constitutional No anorexia 02/13/2016 Constitutional No chills 02/13/2016 Constitutional No night sweats 2015 Constitutional No diaphoresis 02/13/2016 Constitutional No fatigue 02/13/2016 Constitutional No fever 02/13/2016 Constitutional No insomnia 02/13/2016 Constitutional No malaise 02/13/2016 Constitutional No weight loss 02/13/2016 Constitutional No weight gain 02/13/2016 Eyes No eye discharge 02/13/2016 Eyes No eye erythema 02/13/2016 Ears/Nose/Throat/Neck dizziness 2015 Ears/Nose/Throat/Neck No headache 2015 Cardiovascular No chest pain/pressure Cardiovascular No dyspnea 02/13/2016 Cardiovascular No edema 02/13/2016 Respiratory No productive sputum 2015 Respiratory No cigarette smoking 2015 Gastrointestinal No constipation 2015 Gastrointestinal No abdominal pain 2015 Gastrointestinal No diarrhea 02/13/2016 Genitourinary/Nephrology No dysuria 02/12 Musculoskeletal No joint complaint 2015 Respiratory dyspnea on exertion 2015 Dermatologic No rash 02/13/2016 Neurologic No alteration of consciousness 02/13/2016 Psychiatric anxiety 02/13/2016 Psychiatric depression 02/13/2016 Psychiatric No suicidality 02/13/2016 Constitutional No recent illness 2015 Constitutional No anorexia 01/07/2016 Constitutional No night sweats 2015 Constitutional No chills 01/07/2016 Constitutional No diaphoresis 01/07/2016 Constitutional No fatigue 01/07/2016 Constitutional No fever 01/07/2016 Constitutional No insomnia 01/07/2016 Constitutional No malaise 01/07/2016 Eyes No eye discharge 01/07/2016 Eyes No eye erythema 01/07/2016 Ears/Nose/Throat/Neck No dizziness 2015 Cardiovascular No chest pain/pressure Cardiovascular No dyspnea 01/07/2016 Respiratory No productive sputum 2015 Respiratory No chest congestion 2015 Gastrointestinal constipation 01/07/2016 Gastrointestinal No diarrhea 01/07/2016 Gastrointestinal No nausea 01/07/2016 Genitourinary/Nephrology No dysuria 01/06 Musculoskeletal back pain 01/07/2016 Musculoskeletal joint complaint 2015 Musculoskeletal neck pain 01/07/2016 Dermatologic No rash 01/07/2016 Dermatologic No sores 01/07/2016 Neurologic No alteration of consciousness 01/07/2016 Psychiatric depression 01/07/2016 Genitourinary/Nephrology pelvic pain Constitutional No recent illness 2015 Constitutional No anorexia 11/26/2015 Constitutional No night sweats 2015 Constitutional No chills 11/26/2015 Constitutional No diaphoresis 11/26/2015 Constitutional No fatigue 11/26/2015 Constitutional No fever 11/26/2015 Constitutional No insomnia 11/26/2015 Constitutional No malaise 11/26/2015 Eyes No eye discharge 11/26/2015 Eyes No eye erythema 11/26/2015 Ears/Nose/Throat/Neck No dizziness 2015 Cardiovascular No chest pain/pressure 04/2016 Cardiovascular No dyspnea 11/26/2015 Respiratory No productive sputum 2015 Respiratory No chest congestion 2015 Gastrointestinal No constipation 2015 Gastrointestinal No diarrhea 11/26/2015 Gastrointestinal No nausea 11/26/2015 Genitourinary/Nephrology No dysuria 11/25 Genitourinary/Nephrology pelvic pain 04/2016 Musculoskeletal back pain 11/26/2015 Musculoskeletal No joint complaint 2015 Musculoskeletal neck pain 11/26/2015 Dermatologic No rash 11/26/2015 Dermatologic No sores 11/26/2015 Neurologic No alteration of consciousness 11/26/2015 Psychiatric depression 11/26/2015 Constitutional No recent illness 2015 Constitutional No chills 10/28/2015 Constitutional No fatigue 10/28/2015 Constitutional No fever 10/28/2015 Constitutional No insomnia 10/28/2015 Constitutional No malaise 10/28/2015 Eyes No blindness 10/28/2015 Eyes eye discharge 10/28/2015 Eyes eye erythema 10/28/2015 Eyes No vision change 10/28/2015 Ears/Nose/Throat/Neck No dental pain 04/2016 Ears/Nose/Throat/Neck No dizziness 2015 Ears/Nose/Throat/Neck No dysphagia 2015 Ears/Nose/Throat/Neck No headache 2015 Ears/Nose/Throat/Neck No hearing loss 04/2016 Ears/Nose/Throat/Neck No nasal allergies 10/28/2015 Ears/Nose/Throat/Neck No sore throat 04/2016 Ears/Nose/Throat/Neck No postnasal drip 10/28/2015 Ears/Nose/Throat/Neck No sinus congestion 10/28/2015 Cardiovascular No chest pain/pressure 04/2016 Cardiovascular No dyspnea 10/28/2015 Cardiovascular No edema 10/28/2015 Cardiovascular No exercise intolerance Cardiovascular No fatigue 10/28/2015 Cardiovascular No near-syncope/dizziness 10/28/2015 Respiratory No chest tightness 2015 Respiratory No cough 10/28/2015 Respiratory No dyspnea 10/28/2015 Respiratory No pedal edema 10/28/2015 Gastrointestinal No abdominal pain 2015 Gastrointestinal No constipation 2015 Gastrointestinal No diarrhea 10/28/2015 Gastrointestinal No gastroesophageal reflux 10/28/2015 Gastrointestinal No nausea 10/28/2015 Gastrointestinal No vomiting 10/28/2015 Genitourinary/Nephrology No dysuria 10/28 Genitourinary/Nephrology No nocturia 04/2016 Genitourinary/Nephrology No urinary incontinence 10/28/2015 Musculoskeletal No stiffness 10/28/2015 Musculoskeletal No swelling 10/28/2015 Musculoskeletal No muscle weakness 2015 Musculoskeletal No myalgias 10/28/2015 Dermatologic No rash 10/28/2015 Dermatologic No sores 10/28/2015 Dermatologic No scar 10/28/2015 Neurologic No dizziness 10/28/2015 Neurologic No headache 10/28/2015 Neurologic No neck pain 10/28/2015 Neurologic No syncope 10/28/2015 Psychiatric No anxiety 10/28/2015 Psychiatric No depression 10/28/2015 Constitutional No recent illness 2014 Constitutional No chills 07/31/2015 Constitutional No fatigue 07/31/2015 Constitutional No fever 07/31/2015 Constitutional No insomnia 07/31/2015 Constitutional No malaise 07/31/2015 Eyes No blindness 07/31/2015 Eyes No vision change 07/31/2015 Ears/Nose/Throat/Neck No dental pain 07/2015 Ears/Nose/Throat/Neck No dizziness 2014 Ears/Nose/Throat/Neck No dysphagia 2014 Ears/Nose/Throat/Neck No headache 2014 Ears/Nose/Throat/Neck No hearing loss 07/2015 Ears/Nose/Throat/Neck No nasal allergies 07/31/2015 Ears/Nose/Throat/Neck No sore throat 07/2015 Ears/Nose/Throat/Neck No postnasal drip 07/31/2015 Ears/Nose/Throat/Neck No sinus congestion 07/31/2015 Cardiovascular No chest pain/pressure 07/2015 Cardiovascular No dyspnea 07/31/2015 Cardiovascular No edema 07/31/2015 Cardiovascular No exercise intolerance Cardiovascular No fatigue 07/31/2015 Cardiovascular No near-syncope/dizziness 07/31/2015 Respiratory No chest tightness 2014 Respiratory No cough 07/31/2015 Respiratory No dyspnea 07/31/2015 Respiratory No pedal edema 07/31/2015 Gastrointestinal No abdominal pain 2014 Gastrointestinal No constipation 2014 Gastrointestinal No diarrhea 07/31/2015 Gastrointestinal No gastroesophageal reflux 07/31/2015 Gastrointestinal No nausea 07/31/2015 Gastrointestinal No vomiting 07/31/2015 Genitourinary/Nephrology No dysuria 07/31 Genitourinary/Nephrology No nocturia 07/2015 Genitourinary/Nephrology No urinary incontinence 07/31/2015 Musculoskeletal No stiffness 07/31/2015 Musculoskeletal No swelling 07/31/2015 Musculoskeletal No muscle weakness 2014 Musculoskeletal No myalgias 07/31/2015 Dermatologic No rash 07/31/2015 Dermatologic No sores 07/31/2015 Dermatologic No scar 07/31/2015 Neurologic No dizziness 07/31/2015 Neurologic No headache 07/31/2015 Neurologic No neck pain 07/31/2015 Neurologic No syncope 07/31/2015 Psychiatric No anxiety 07/31/2015 Psychiatric No depression 07/31/2015 Eyes eye discharge 07/31/2015 Eyes eye erythema 07/31/2015 Constitutional No recent illness 2014 Constitutional No anorexia 05/03/2015 Constitutional No night sweats 2014 Constitutional No chills 05/03/2015 Constitutional No diaphoresis 05/03/2015 Constitutional No fatigue 05/03/2015 Constitutional No fever 05/03/2015 Constitutional No insomnia 05/03/2015 Constitutional No malaise 05/03/2015 Eyes No eye discharge 05/03/2015 Eyes No eye erythema 05/03/2015 Ears/Nose/Throat/Neck No dizziness 2014 Ears/Nose/Throat/Neck headache 2014 Cardiovascular No chest pain/pressure Cardiovascular No dyspnea 05/03/2015 Respiratory No productive sputum 2014 Respiratory No chest congestion 2014 Gastrointestinal abdominal pain 2014 Gastrointestinal No constipation 2014 Gastrointestinal No diarrhea 05/03/2015 Gastrointestinal No nausea 05/03/2015 Genitourinary/Nephrology No dysuria 05/03 Genitourinary/Nephrology pelvic pain Musculoskeletal back pain 05/03/2015 Musculoskeletal No joint complaint 2014 Musculoskeletal neck pain 05/03/2015 Dermatologic No rash 05/03/2015 Dermatologic No sores 05/03/2015 Neurologic No alteration of consciousness 05/03/2015 Psychiatric depression 05/03/2015 Gastrointestinal abdominal pain 2014 Gastrointestinal No constipation 2014 Gastrointestinal No diarrhea 02/07/2015 Gastrointestinal No nausea 02/07/2015 Genitourinary/Nephrology No dysuria 02/07 Genitourinary/Nephrology pelvic pain Musculoskeletal No joint complaint 2014 Constitutional No recent illness 2014 Constitutional No anorexia 02/07/2015 Constitutional No night sweats 2014 Constitutional No chills 02/07/2015 Constitutional No diaphoresis 02/07/2015 Constitutional No fatigue 02/07/2015 Constitutional No fever 02/07/2015 Constitutional No insomnia 02/07/2015 Constitutional No malaise 02/07/2015 Constitutional No weight loss 02/07/2015 Constitutional weight gain 02/07/2015 Psychiatric depression 02/07/2015 Ears/Nose/Throat/Neck No dizziness 2014 Ears/Nose/Throat/Neck headache 2014 Eyes No eye discharge 02/07/2015 Eyes No eye erythema 02/07/2015 Cardiovascular No chest pain/pressure Cardiovascular No dyspnea 02/07/2015 Respiratory No productive sputum 2014 Respiratory No chest congestion 2014 Dermatologic No rash 02/07/2015 Dermatologic No sores 02/07/2015 Neurologic No alteration of consciousness 02/07/2015 Musculoskeletal back pain 02/07/2015 Musculoskeletal neck pain 02/07/2015 Physical Exam Exam Name System Name Item Name Status Result Effective Dates Notes Full Exam - General 1994 Constitutional general appearance Overall: well developed 09/28/2017 None Full Exam - General 1994 Constitutional general appearance Overall: in no acute distress 09/28/2017 None Full Exam - General 1994 Constitutional general appearance Overall: well nourished 09/28/2017 None Full Exam - General 1994 Constitutional general appearance Evidence of Distress: tearful 09/28/2017 None Full Exam - General 1994 Eyes conjunctiva /eyelids Overall: conjunctiva clear 09/28/2017 None Full Exam - General 1994 Eyes pupils and irises Overall: pupils equal, round, reactive to light and accomodation 09/28/2017 None Full Exam - General 1994 Ears/Nose/Throat oral cavity/pharynx/larynx Overall: oral mucosa clear 09/28/2017 None Full Exam - General 1994 Respiratory auscultation Overall: breath sounds clear bilaterally 09/28/2017 None Full Exam - General 1994 Respiratory respiratory effort/rhythm Overall: no retractions 09/28/2017 None Full Exam - General 1994 Respiratory respiratory effort/rhythm Overall: normal rate 09/28/2017 None Full Exam - General 1994 Cardiovascular auscultation of heart Overall: regular rate 09/28/2017 None Full Exam - General 1994 Cardiovascular auscultation of heart Overall: normal heart sounds 09/28/2017 None Full Exam - General 1994 Abdomen abdominal exam Overall: no tenderness 09/28/2017 None Full Exam - General 1994 Abdomen abdominal exam Overall: normal bowel sounds 09/28/2017 None Full Exam - General 1994 Lymphatic neck nodes Overall: anterior cervical chain benign 09/28/2017 None Full Exam - General 1994 Lymphatic neck nodes Overall: posterior cervical chain benign 09/28/2017 None Full Exam - General 1994 Neurologic cranial nerves Overall: crainial nerves 2 - 12 grossly intact 09/28/2017 None Full Exam - General 1994 Psychiatric orientation/consciousness Overall: oriented to person, place and time 09/28/2017 None Full Exam - General 1994 Psychiatric mood and affect Mood: depressed 09/28/2017 None Full Exam - General 1994 Constitutional general appearance Overall: well developed 08/19/2017 None Full Exam - General 1994 Constitutional general appearance Overall: in no acute distress 08/19/2017 None Full Exam - General 1994 Constitutional general appearance Overall: well nourished 08/19/2017 None Full Exam - General 1994 Constitutional general appearance Evidence of Distress: tearful 08/19/2017 None Full Exam - General 1994 Eyes conjunctiva /eyelids Overall: conjunctiva clear 08/19/2017 None Full Exam - General 1994 Eyes pupils and irises Overall: pupils equal, round, reactive to light and accomodation 08/19/2017 None Full Exam - General 1994 Ears/Nose/Throat oral cavity/pharynx/larynx Overall: oral mucosa clear 08/19/2017 None Full Exam - General 1994 Respiratory auscultation Overall: breath sounds clear bilaterally 08/19/2017 None Full Exam - General 1994 Respiratory respiratory effort/rhythm Overall: no retractions 08/19/2017 None Full Exam - General 1994 Respiratory respiratory effort/rhythm Overall: normal rate 08/19/2017 None Full Exam - General 1994 Cardiovascular auscultation of heart Overall: regular rate 08/19/2017 None Full Exam - General 1994 Cardiovascular auscultation of heart Overall: normal heart sounds 08/19/2017 None Full Exam - General 1994 Abdomen abdominal exam Overall: no tenderness 08/19/2017 None Full Exam - General 1994 Abdomen abdominal exam Overall: normal bowel sounds 08/19/2017 None Full Exam - General 1994 Neurologic cranial nerves Overall: crainial nerves 2 - 12 grossly intact 08/19/2017 None Full Exam - General 1994 Psychiatric orientation/consciousness Overall: oriented to person, place and time 08/19/2017 None Full Exam - General 1994 Psychiatric mood and affect Mood: depressed 08/19/2017 None Full Exam - General 1994 Lymphatic neck nodes Overall: anterior cervical chain benign 08/19/2017 None Full Exam - General 1994 Lymphatic neck nodes Overall: posterior cervical chain benign 08/19/2017 None Full Exam - General 1994 Constitutional general appearance Overall: well developed 07/27/2017 None Full Exam - General 1994 Constitutional general appearance Overall: well nourished 07/27/2017 None Full Exam - General 1994 Constitutional general appearance Evidence of Distress: tearful 07/27/2017 None Full Exam - General 1994 Eyes conjunctiva /eyelids Overall: conjunctiva clear 07/27/2017 None Full Exam - General 1994 Eyes pupils and irises Overall: pupils equal, round, reactive to light and accomodation 07/27/2017 None Full Exam - General 1994 Ears/Nose/Throat oral cavity/pharynx/larynx Overall: oral mucosa clear 07/27/2017 None Full Exam - General 1994 Respiratory auscultation Overall: breath sounds clear bilaterally 07/27/2017 None Full Exam - General 1994 Respiratory respiratory effort/rhythm Overall: no retractions 07/27/2017 None Full Exam - General 1994 Respiratory respiratory effort/rhythm Overall: normal rate 07/27/2017 None Full Exam - General 1994 Cardiovascular auscultation of heart Overall: regular rate 07/27/2017 None Full Exam - General 1994 Cardiovascular auscultation of heart Overall: normal heart sounds 07/27/2017 None Full Exam - General 1994 Abdomen abdominal exam Overall: no tenderness 07/27/2017 None Full Exam - General 1994 Abdomen abdominal exam Overall: normal bowel sounds 07/27/2017 None Full Exam - General 1994 Neurologic motor Appearance: tremor 07/27/2017 of mouth and tongue Full Exam - General 1994 Psychiatric orientation/consciousness Overall: oriented to person, place and time 07/27/2017 None Full Exam - General 1994 Psychiatric mood and affect Mood: depressed 07/27/2017 None Full Exam - General 1994 Lymphatic neck nodes Overall: anterior cervical chain benign 07/27/2017 None Full Exam - General 1994 Lymphatic neck nodes Overall: posterior cervical chain benign 07/27/2017 None Full Exam - General 1994 Constitutional general appearance Evidence of Distress: anxious 07/27/2017 None Full Exam - General 1994 Constitutional general appearance Hygiene/Attention to Grooming: poor hygiene 07/27/2017 not up to usual standard of cleanliness, hair is limp and not well combed, clothing is not as well put together as usual - somewhat disheveled Full Exam - General 1994 Constitutional general appearance Overall: well developed 07/01/2017 None Full Exam - General 1994 Constitutional general appearance Overall: in no acute distress 07/01/2017 None Full Exam - General 1994 Constitutional general appearance Overall: well nourished 07/01/2017 None Full Exam - General 1994 Constitutional general appearance Evidence of Distress: tearful 07/01/2017 None Full Exam - General 1994 Eyes conjunctiva /eyelids Overall: conjunctiva clear 07/01/2017 None Full Exam - General 1994 Eyes pupils and irises Overall: pupils equal, round, reactive to light and accomodation 07/01/2017 None Full Exam - General 1994 Ears/Nose/Throat oral cavity/pharynx/larynx Overall: oral mucosa clear 07/01/2017 None Full Exam - General 1994 Respiratory auscultation Overall: breath sounds clear bilaterally 07/01/2017 None Full Exam - General 1994 Respiratory respiratory effort/rhythm Overall: no retractions 07/01/2017 None Full Exam - General 1994 Respiratory respiratory effort/rhythm Overall: normal rate 07/01/2017 None Full Exam - General 1994 Cardiovascular auscultation of heart Overall: regular rate 07/01/2017 None Full Exam - General 1994 Cardiovascular auscultation of heart Overall: normal heart sounds 07/01/2017 None Full Exam - General 1994 Abdomen abdominal exam Overall: no tenderness 07/01/2017 None Full Exam - General 1994 Abdomen abdominal exam Overall: normal bowel sounds 07/01/2017 None Full Exam - General 1994 Lymphatic neck nodes Overall: anterior cervical chain benign 07/01/2017 None Full Exam - General 1994 Lymphatic neck nodes Overall: posterior cervical chain benign 07/01/2017 None Full Exam - General 1994 Psychiatric orientation/consciousness Overall: oriented to person, place and time 07/01/2017 None Full Exam - General 1994 Psychiatric mood and affect Mood: depressed 07/01/2017 None Full Exam - General 1994 Constitutional general appearance Overall: well developed 06/17/2017 None Full Exam - General 1994 Constitutional general appearance Overall: in no acute distress 06/17/2017 None Full Exam - General 1994 Constitutional general appearance Overall: well nourished 06/17/2017 None Full Exam - General 1994 Constitutional general appearance Evidence of Distress: tearful 06/17/2017 None Full Exam - General 1994 Eyes conjunctiva /eyelids Overall: conjunctiva clear 06/17/2017 None Full Exam - General 1994 Eyes pupils and irises Overall: pupils equal, round, reactive to light and accomodation 06/17/2017 None Full Exam - General 1994 Ears/Nose/Throat oral cavity/pharynx/larynx Overall: oral mucosa clear 06/17/2017 None Full Exam - General 1994 Respiratory auscultation Overall: breath sounds clear bilaterally 06/17/2017 None Full Exam - General 1994 Respiratory respiratory effort/rhythm Overall: no retractions 06/17/2017 None Full Exam - General 1994 Respiratory respiratory effort/rhythm Overall: normal rate 06/17/2017 None Full Exam - General 1994 Cardiovascular auscultation of heart Overall: regular rate 06/17/2017 None Full Exam - General 1994 Cardiovascular auscultation of heart Overall: normal heart sounds 06/17/2017 None Full Exam - General 1994 Abdomen abdominal exam Overall: no tenderness 06/17/2017 None Full Exam - General 1994 Abdomen abdominal exam Overall: normal bowel sounds 06/17/2017 None Full Exam - General 1994 Psychiatric orientation/consciousness Overall: oriented to person, place and time 06/17/2017 None Full Exam - General 1994 Psychiatric mood and affect Mood: depressed 06/17/2017 None Full Exam - General 1994 Neurologic motor Appearance: tremor 06/17/2017 of mouth and tongue Full Exam - General 1994 Constitutional general appearance Overall: well developed 05/31/2017 None Full Exam - General 1994 Constitutional general appearance Overall: in no acute distress 05/31/2017 None Full Exam - General 1994 Constitutional general appearance Overall: well nourished 05/31/2017 None Full Exam - General 1994 Constitutional general appearance Evidence of Distress: tearful 05/31/2017 None Full Exam - General 1994 Eyes conjunctiva /eyelids Overall: conjunctiva clear 05/31/2017 None Full Exam - General 1994 Eyes pupils and irises Overall: pupils equal, round, reactive to light and accomodation 05/31/2017 None Full Exam - General 1994 Ears/Nose/Throat oral cavity/pharynx/larynx Overall: oral mucosa clear 05/31/2017 None Full Exam - General 1994 Respiratory auscultation Overall: breath sounds clear bilaterally 05/31/2017 None Full Exam - General 1994 Respiratory respiratory effort/rhythm Overall: no retractions 05/31/2017 None Full Exam - General 1994 Respiratory respiratory effort/rhythm Overall: normal rate 05/31/2017 None Full Exam - General 1994 Cardiovascular auscultation of heart Overall: regular rate 05/31/2017 None Full Exam - General 1994 Cardiovascular auscultation of heart Overall: normal heart sounds 05/31/2017 None Full Exam - General 1994 Abdomen abdominal exam Overall: no tenderness 05/31/2017 None Full Exam - General 1994 Abdomen abdominal exam Overall: normal bowel sounds 05/31/2017 None Full Exam - General 1994 Psychiatric orientation/consciousness Overall: oriented to person, place and time 05/31/2017 None Full Exam - General 1994 Psychiatric mood and affect Mood: depressed 05/31/2017 None Full Exam - General 1994 Lymphatic neck nodes Overall: anterior cervical chain benign 05/31/2017 None Full Exam - General 1994 Lymphatic neck nodes Overall: posterior cervical chain benign 05/31/2017 None Full Exam - General 1994 Constitutional general appearance Overall: well developed 01/27/2017 None Full Exam - General 1994 Constitutional general appearance Overall: in no acute distress 01/27/2017 None Full Exam - General 1994 Constitutional general appearance Overall: well nourished 01/27/2017 None Full Exam - General 1994 Constitutional general appearance Evidence of Distress: tearful 01/27/2017 None Full Exam - General 1994 Eyes conjunctiva /eyelids Overall: conjunctiva clear 01/27/2017 None Full Exam - General 1994 Eyes pupils and irises Overall: pupils equal, round, reactive to light and accomodation 01/27/2017 None Full Exam - General 1994 Ears/Nose/Throat oral cavity/pharynx/larynx Overall: oral mucosa clear 01/27/2017 None Full Exam - General 1994 Respiratory auscultation Overall: breath sounds clear bilaterally 01/27/2017 None Full Exam - General 1994 Respiratory respiratory effort/rhythm Overall: no retractions 01/27/2017 None Full Exam - General 1994 Respiratory respiratory effort/rhythm Overall: normal rate 01/27/2017 None Full Exam - General 1994 Cardiovascular auscultation of heart Overall: regular rate 01/27/2017 None Full Exam - General 1994 Cardiovascular auscultation of heart Overall: normal heart sounds 01/27/2017 None Full Exam - General 1994 Abdomen abdominal exam Overall: no tenderness 01/27/2017 None Full Exam - General 1994 Abdomen abdominal exam Overall: normal bowel sounds 01/27/2017 None Full Exam - General 1994 Neurologic cranial nerves Overall: crainial nerves 2 - 12 grossly intact 01/27/2017 None Full Exam - General 1994 Psychiatric orientation/consciousness Overall: oriented to person, place and time 01/27/2017 None Full Exam - General 1994 Psychiatric mood and affect Mood: depressed 01/27/2017 None Full Exam - General 1994 Constitutional general appearance Overall: well developed 11/25/2016 None Full Exam - General 1994 Constitutional general appearance Overall: in no acute distress 11/25/2016 None Full Exam - General 1994 Constitutional general appearance Overall: well nourished 11/25/2016 None Full Exam - General 1994 Constitutional general appearance Evidence of Distress: tearful 11/25/2016 None Full Exam - General 1994 Eyes conjunctiva /eyelids Overall: conjunctiva clear 11/25/2016 None Full Exam - General 1994 Eyes pupils and irises Overall: pupils equal, round, reactive to light and accomodation 11/25/2016 None Full Exam - General 1994 Ears/Nose/Throat oral cavity/pharynx/larynx Overall: oral mucosa clear 11/25/2016 None Full Exam - General 1994 Respiratory auscultation Overall: breath sounds clear bilaterally 11/25/2016 None Full Exam - General 1994 Respiratory respiratory effort/rhythm Overall: no retractions 11/25/2016 None Full Exam - General 1994 Respiratory respiratory effort/rhythm Overall: normal rate 11/25/2016 None Full Exam - General 1994 Cardiovascular auscultation of heart Overall: regular rate 11/25/2016 None Full Exam - General 1994 Cardiovascular auscultation of heart Overall: normal heart sounds 11/25/2016 None Full Exam - General 1994 Abdomen abdominal exam Overall: no tenderness 11/25/2016 None Full Exam - General 1994 Abdomen abdominal exam Overall: normal bowel sounds 11/25/2016 None Full Exam - General 1994 Neurologic cranial nerves Overall: crainial nerves 2 - 12 grossly intact 11/25/2016 None Full Exam - General 1994 Psychiatric orientation/consciousness Overall: oriented to person, place and time 11/25/2016 None Full Exam - General 1994 Psychiatric mood and affect Mood: depressed 11/25/2016 None Full Exam - General 1994 Constitutional general appearance Overall: well developed 09/02/2016 None Full Exam - General 1994 Constitutional general appearance Overall: in no acute distress 09/02/2016 None Full Exam - General 1994 Constitutional general appearance Overall: well nourished 09/02/2016 None Full Exam - General 1994 Constitutional general appearance Evidence of Distress: tearful 09/02/2016 None Full Exam - General 1994 Eyes conjunctiva /eyelids Overall: conjunctiva clear 09/02/2016 None Full Exam - General 1994 Eyes pupils and irises Overall: pupils equal, round, reactive to light and accomodation 09/02/2016 None Full Exam - General 1994 Ears/Nose/Throat oral cavity/pharynx/larynx Overall: oral mucosa clear 09/02/2016 None Full Exam - General 1994 Respiratory auscultation Overall: breath sounds clear bilaterally 09/02/2016 None Full Exam - General 1994 Respiratory respiratory effort/rhythm Overall: no retractions 09/02/2016 None Full Exam - General 1994 Respiratory respiratory effort/rhythm Overall: normal rate 09/02/2016 None Full Exam - General 1994 Cardiovascular auscultation of heart Overall: regular rate 09/02/2016 None Full Exam - General 1994 Cardiovascular auscultation of heart Overall: normal heart sounds 09/02/2016 None Full Exam - General 1994 Abdomen abdominal exam Overall: no tenderness 09/02/2016 None Full Exam - General 1994 Abdomen abdominal exam Overall: normal bowel sounds 09/02/2016 None Full Exam - General 1994 Neurologic cranial nerves Overall: crainial nerves 2 - 12 grossly intact 09/02/2016 None Full Exam - General 1994 Psychiatric orientation/consciousness Overall: oriented to person, place and time 09/02/2016 None Full Exam - General 1994 Psychiatric mood and affect Mood: depressed 09/02/2016 None Full Exam - General 1994 Lymphatic neck nodes Overall: anterior cervical chain benign 09/02/2016 None Full Exam - General 1994 Lymphatic neck nodes Overall: posterior cervical chain benign 09/02/2016 None Full Exam - General 1994 Integument inspection of skin Dermatitis: thickened 09/02/2016 nodule right wrist - frozen x 3 , skin tag - irritated on left nare - removed with sharp excision Full Exam - General 1994 Constitutional general appearance Overall: well developed 07/01/2016 None Full Exam - General 1994 Constitutional general appearance Overall: in no acute distress 07/01/2016 None Full Exam - General 1994 Constitutional general appearance Overall: well nourished 07/01/2016 None Full Exam - General 1994 Constitutional general appearance Evidence of Distress: tearful 07/01/2016 None Full Exam - General 1994 Eyes conjunctiva /eyelids Overall: conjunctiva clear 07/01/2016 None Full Exam - General 1994 Eyes pupils and irises Overall: pupils equal, round, reactive to light and accomodation 07/01/2016 None Full Exam - General 1994 Ears/Nose/Throat oral cavity/pharynx/larynx Overall: oral mucosa clear 07/01/2016 None Full Exam - General 1994 Respiratory auscultation Overall: breath sounds clear bilaterally 07/01/2016 None Full Exam - General 1994 Respiratory respiratory effort/rhythm Overall: no retractions 07/01/2016 None Full Exam - General 1994 Respiratory respiratory effort/rhythm Overall: normal rate 07/01/2016 None Full Exam - General 1994 Cardiovascular auscultation of heart Overall: regular rate 07/01/2016 None Full Exam - General 1994 Cardiovascular auscultation of heart Overall: normal heart sounds 07/01/2016 None Full Exam - General 1994 Abdomen abdominal exam Overall: no tenderness 07/01/2016 None Full Exam - General 1994 Abdomen abdominal exam Overall: normal bowel sounds 07/01/2016 None Full Exam - General 1994 Neurologic cranial nerves Overall: crainial nerves 2 - 12 grossly intact 07/01/2016 None Full Exam - General 1994 Psychiatric orientation/consciousness Overall: oriented to person, place and time 07/01/2016 None Full Exam - General 1994 Psychiatric mood and affect Mood: depressed 07/01/2016 None Full Exam - General 1994 Constitutional general appearance Overall: well developed 06/03/2016 None Full Exam - General 1994 Constitutional general appearance Overall: in no acute distress 06/03/2016 None Full Exam - General 1994 Constitutional general appearance Overall: well nourished 06/03/2016 None Full Exam - General 1994 Constitutional general appearance Evidence of Distress: tearful 06/03/2016 None Full Exam - General 1994 Eyes conjunctiva /eyelids Overall: conjunctiva clear 06/03/2016 None Full Exam - General 1994 Eyes pupils and irises Overall: pupils equal, round, reactive to light and accomodation 06/03/2016 None Full Exam - General 1994 Ears/Nose/Throat oral cavity/pharynx/larynx Overall: oral mucosa clear 06/03/2016 None Full Exam - General 1994 Respiratory auscultation Overall: breath sounds clear bilaterally 06/03/2016 None Full Exam - General 1994 Respiratory respiratory effort/rhythm Overall: no retractions 06/03/2016 None Full Exam - General 1994 Respiratory respiratory effort/rhythm Overall: normal rate 06/03/2016 None Full Exam - General 1994 Cardiovascular auscultation of heart Overall: regular rate 06/03/2016 None Full Exam - General 1994 Cardiovascular auscultation of heart Overall: normal heart sounds 06/03/2016 None Full Exam - General 1994 Abdomen abdominal exam Overall: no tenderness 06/03/2016 None Full Exam - General 1994 Abdomen abdominal exam Overall: normal bowel sounds 06/03/2016 None Full Exam - General 1994 Integument inspection of skin Location: right hand 06/03/2016 [place] right wrist Full Exam - General 1994 Neurologic cranial nerves Overall: crainial nerves 2 - 12 grossly intact 06/03/2016 None Full Exam - General 1994 Psychiatric orientation/consciousness Overall: oriented to person, place and time 06/03/2016 None Full Exam - General 1994 Psychiatric mood and affect Mood: depressed 06/03/2016 None Full Exam - General 1994 Constitutional general appearance Overall: well developed 04/06/2016 None Full Exam - General 1994 Constitutional general appearance Overall: in no acute distress 04/06/2016 None Full Exam - General 1994 Constitutional general appearance Overall: well nourished 04/06/2016 None Full Exam - General 1994 Constitutional general appearance Evidence of Distress: tearful 04/06/2016 None Full Exam - General 1994 Eyes conjunctiva /eyelids Overall: conjunctiva clear 04/06/2016 None Full Exam - General 1994 Eyes pupils and irises Overall: pupils equal, round, reactive to light and accomodation 04/06/2016 None Full Exam - General 1994 Ears/Nose/Throat oral cavity/pharynx/larynx Overall: oral mucosa clear 04/06/2016 None Full Exam - General 1994 Respiratory auscultation Overall: breath sounds clear bilaterally 04/06/2016 None Full Exam - General 1994 Respiratory respiratory effort/rhythm Overall: no retractions 04/06/2016 None Full Exam - General 1994 Respiratory respiratory effort/rhythm Overall: normal rate 04/06/2016 None Full Exam - General 1994 Cardiovascular auscultation of heart Overall: regular rate 04/06/2016 None Full Exam - General 1994 Cardiovascular auscultation of heart Overall: normal heart sounds 04/06/2016 None Full Exam - General 1994 Abdomen abdominal exam Overall: no tenderness 04/06/2016 None Full Exam - General 1994 Abdomen abdominal exam Overall: normal bowel sounds 04/06/2016 None Full Exam - General 1994 Neurologic cranial nerves Overall: crainial nerves 2 - 12 grossly intact 04/06/2016 None Full Exam - General 1994 Psychiatric orientation/consciousness Overall: oriented to person, place and time 04/06/2016 None Full Exam - General 1994 Psychiatric mood and affect Mood: depressed 04/06/2016 None Full Exam - General 1994 Integument inspection of skin Location: right hand 04/06/2016 [place] right wrist Full Exam - General 1994 Constitutional general appearance Overall: well developed 02/13/2016 None Full Exam - General 1994 Constitutional general appearance Overall: in no acute distress 02/13/2016 None Full Exam - General 1994 Constitutional general appearance Overall: well nourished 02/13/2016 None Full Exam - General 1994 Eyes conjunctiva /eyelids Overall: conjunctiva clear 02/13/2016 None Full Exam - General 1994 Eyes pupils and irises Overall: pupils equal, round, reactive to light and accomodation 02/13/2016 None Full Exam - General 1994 Ears/Nose/Throat oral cavity/pharynx/larynx Overall: oral mucosa clear 02/13/2016 None Full Exam - General 1994 Respiratory auscultation Overall: breath sounds clear bilaterally 02/13/2016 None Full Exam - General 1994 Respiratory respiratory effort/rhythm Overall: no retractions 02/13/2016 None Full Exam - General 1994 Respiratory respiratory effort/rhythm Overall: normal rate 02/13/2016 None Full Exam - General 1994 Cardiovascular auscultation of heart Overall: regular rate 02/13/2016 None Full Exam - General 1994 Cardiovascular auscultation of heart Overall: normal heart sounds 02/13/2016 None Full Exam - General 1994 Psychiatric orientation/consciousness Overall: oriented to person, place and time 02/13/2016 None Full Exam - General 1994 Abdomen abdominal exam Overall: no tenderness 02/13/2016 None Full Exam - General 1994 Abdomen abdominal exam Overall: normal bowel sounds 02/13/2016 None Full Exam - General 1994 Constitutional general appearance Evidence of Distress: tearful 02/13/2016 None Full Exam - General 1994 Neurologic cranial nerves Overall: crainial nerves 2 - 12 grossly intact 02/13/2016 None Full Exam - General 1994 Psychiatric mood and affect Mood: depressed 02/13/2016 None Full Exam - General 1994 Constitutional general appearance Overall: well developed 01/07/2016 None Full Exam - General 1994 Constitutional general appearance Overall: in no acute distress 01/07/2016 None Full Exam - General 1994 Constitutional general appearance Overall: well nourished 01/07/2016 None Full Exam - General 1994 Respiratory auscultation Overall: breath sounds clear bilaterally 01/07/2016 None Full Exam - General 1994 Respiratory respiratory effort/rhythm Overall: no retractions 01/07/2016 None Full Exam - General 1994 Respiratory respiratory effort/rhythm Overall: normal rate 01/07/2016 None Full Exam - General 1994 Cardiovascular auscultation of heart Overall: regular rate 01/07/2016 None Full Exam - General 1994 Cardiovascular auscultation of heart Overall: normal heart sounds 01/07/2016 None Full Exam - General 1994 Psychiatric orientation/consciousness Overall: oriented to person, place and time 01/07/2016 None Full Exam - General 1994 Eyes conjunctiva /eyelids Overall: conjunctiva clear 01/07/2016 None Full Exam - General 1994 Eyes pupils and irises Overall: pupils equal, round, reactive to light and accomodation 01/07/2016 None Full Exam - General 1994 Ears/Nose/Throat oral cavity/pharynx/larynx Overall: oral mucosa clear 01/07/2016 None Full Exam - General 1994 Constitutional general appearance Overall: well developed 11/26/2015 None Full Exam - General 1994 Constitutional general appearance Overall: in no acute distress 11/26/2015 None Full Exam - General 1994 Constitutional general appearance Overall: well nourished 11/26/2015 None Full Exam - General 1994 Eyes conjunctiva /eyelids Overall: conjunctiva clear 11/26/2015 None Full Exam - General 1994 Eyes conjunctiva /eyelids Overall: cornea clear 11/26/2015 None Full Exam - General 1994 Eyes conjunctiva /eyelids Overall: eyelids normal 11/26/2015 None Full Exam - General 1994 Eyes pupils and irises Overall: pupils equal, round, reactive to light and accomodation 11/26/2015 None Full Exam - General 1994 Ears/Nose/Throat otoscopic exam Overall: external auditory canals clear 11/26/2015 None Full Exam - General 1994 Ears/Nose/Throat otoscopic exam Overall: tympanic membranes clear 11/26/2015 None Full Exam - General 1994 Ears/Nose/Throat oral cavity/pharynx/larynx Overall: oral mucosa clear 11/26/2015 None Full Exam - General 1994 Ears/Nose/Throat oral cavity/pharynx/larynx Overall: oropharyngeal mucosa clear 11/26/2015 None Full Exam - General 1994 Ears/Nose/Throat oral cavity/pharynx/larynx Overall: no masses 11/26/2015 None Full Exam - General 1994 Respiratory auscultation Overall: breath sounds clear bilaterally 11/26/2015 None Full Exam - General 1994 Respiratory respiratory effort/rhythm Overall: no retractions 11/26/2015 None Full Exam - General 1994 Respiratory respiratory effort/rhythm Overall: normal rate 11/26/2015 None Full Exam - General 1994 Cardiovascular auscultation of heart Overall: regular rate 11/26/2015 None Full Exam - General 1994 Cardiovascular auscultation of heart Overall: normal heart sounds 11/26/2015 None Full Exam - General 1994 Abdomen abdominal exam Overall: no tenderness 11/26/2015 None Full Exam - General 1994 Abdomen abdominal exam Overall: normal bowel sounds 11/26/2015 None Full Exam - General 1994 Lymphatic neck nodes Overall: anterior cervical chain benign 11/26/2015 None Full Exam - General 1994 Lymphatic neck nodes Overall: posterior cervical chain benign 11/26/2015 None Full Exam - General 1994 Musculoskeletal spine, ribs and pelvis Overall: spine benign 11/26/2015 None Full Exam - General 1994 Neurologic deep tendon reflexes Overall: deep tendon reflexes intact 11/26/2015 None Full Exam - General 1994 Neurologic cranial nerves Overall: crainial nerves 2 - 12 grossly intact 11/26/2015 None Full Exam - General 1994 Psychiatric orientation/consciousness Overall: oriented to person, place and time 11/26/2015 None Full Exam - General 1994 Psychiatric mood and affect Mood: flat 11/26/2015 None Full Exam - General 1994 Psychiatric mood and affect Mood: depressed 11/26/2015 None Full Exam - General 1994 Psychiatric mood and affect Affect: mood congruent 11/26/2015 None Full Exam - General 1994 Constitutional general appearance Development: well developed 10/28/2015 None Full Exam - General 1994 Constitutional general appearance Development: appears stated age 0210/28/2015 None Full Exam - General 1994 Constitutional general appearance Hygiene/Attention to Grooming: good hygiene 10/28/2015 None Full Exam - General 1994 Eyes conjunctiva /eyelids Overall: eyelids normal 10/28/2015 None Full Exam - General 1994 Eyes conjunctiva /eyelids Conjunctiva: injection 10/28/2015 None Full Exam - General 1994 Eyes conjunctiva /eyelids Conjunctiva: erythema 10/28/2015 None Full Exam - General 1994 Eyes pupils and irises Overall: pupils equal, round, reactive to light and accomodation 10/28/2015 None Full Exam - General 1994 Ears/Nose/Throat oral cavity/pharynx/larynx Overall: oral mucosa clear 10/28/2015 None Full Exam - General 1994 Ears/Nose/Throat oral cavity/pharynx/larynx Overall: oropharyngeal mucosa clear 10/28/2015 None Full Exam - General 1994 Ears/Nose/Throat oral cavity/pharynx/larynx Overall: hypopharynx benign 10/28/2015 None Full Exam - General 1994 Ears/Nose/Throat oral cavity/pharynx/larynx Overall: no masses 10/28/2015 None Full Exam - General 1994 Respiratory auscultation Overall: breath sounds clear bilaterally 10/28/2015 None Full Exam - General 1994 Respiratory respiratory effort/rhythm Overall: no retractions 10/28/2015 None Full Exam - General 1994 Respiratory respiratory effort/rhythm Overall: normal rate 10/28/2015 None Full Exam - General 1994 Cardiovascular extremities Overall: no clubbing 10/28/2015 None Full Exam - General 1994 Cardiovascular auscultation of heart Overall: regular rate 10/28/2015 None Full Exam - General 1994 Cardiovascular auscultation of heart Overall: normal heart sounds 10/28/2015 None Full Exam - General 1994 Abdomen abdominal exam Overall: no tenderness 10/28/2015 None Full Exam - General 1994 Abdomen abdominal exam Overall: normal bowel sounds 10/28/2015 None Full Exam - General 1994 Musculoskeletal spine, ribs and pelvis Overall: good posture 10/28/2015 None Full Exam - General 1994 Musculoskeletal head and neck Overall: head atraumatic 10/28/2015 None Full Exam - General 1994 Musculoskeletal head and neck Overall: cervical spine benign 10/28/2015 None Full Exam - General 1994 Integument inspection of skin Overall: few scattered moles, no gross abnormalities 10/28/2015 None Full Exam - General 1994 Neurologic deep tendon reflexes Overall: deep tendon reflexes intact 10/28/2015 None Full Exam - General 1994 Neurologic cranial nerves Overall: crainial nerves 2 - 12 grossly intact 10/28/2015 None Full Exam - General 1994 Psychiatric orientation/consciousness Overall: oriented to person, place and time 10/28/2015 None Full Exam - General 1994 Psychiatric mood and affect Overall: normal mood and affect 10/28/2015 None Full Exam - General 1994 Constitutional general appearance Development: well developed 07/31/2015 None Full Exam - General 1994 Constitutional general appearance Development: appears stated age 1107/31/2015 None Full Exam - General 1994 Constitutional general appearance Hygiene/Attention to Grooming: good hygiene 07/31/2015 None Full Exam - General 1994 Eyes conjunctiva /eyelids Overall: eyelids normal 07/31/2015 None Full Exam - General 1994 Eyes pupils and irises Overall: pupils equal, round, reactive to light and accomodation 07/31/2015 None Full Exam - General 1994 Ears/Nose/Throat otoscopic exam Overall: external auditory canals clear 07/31/2015 None Full Exam - General 1994 Ears/Nose/Throat otoscopic exam Overall: tympanic membranes clear 07/31/2015 None Full Exam - General 1994 Ears/Nose/Throat lips/teeth/gingiva Overall: benign lips 07/31/2015 None Full Exam - General 1994 Ears/Nose/Throat lips/teeth/gingiva Overall: normal dentition 07/31/2015 None Full Exam - General 1994 Ears/Nose/Throat oral cavity/pharynx/larynx Overall: oral mucosa clear 07/31/2015 None Full Exam - General 1994 Ears/Nose/Throat oral cavity/pharynx/larynx Overall: oropharyngeal mucosa clear 07/31/2015 None Full Exam - General 1994 Ears/Nose/Throat oral cavity/pharynx/larynx Overall: hypopharynx benign 07/31/2015 None Full Exam - General 1994 Ears/Nose/Throat oral cavity/pharynx/larynx Overall: no masses 07/31/2015 None Full Exam - General 1994 Respiratory auscultation Overall: breath sounds clear bilaterally 07/31/2015 None Full Exam - General 1994 Respiratory respiratory effort/rhythm Overall: no retractions 07/31/2015 None Full Exam - General 1994 Respiratory respiratory effort/rhythm Overall: normal rate 07/31/2015 None Full Exam - General 1994 Cardiovascular extremities Overall: no clubbing 07/31/2015 None Full Exam - General 1994 Cardiovascular auscultation of heart Overall: regular rate 07/31/2015 None Full Exam - General 1994 Cardiovascular auscultation of heart Overall: normal heart sounds 07/31/2015 None Full Exam - General 1994 Abdomen abdominal exam Overall: no tenderness 07/31/2015 None Full Exam - General 1994 Abdomen abdominal exam Overall: normal bowel sounds 07/31/2015 None Full Exam - General 1994 Lymphatic neck nodes Overall: anterior cervical chain benign 07/31/2015 None Full Exam - General 1994 Lymphatic neck nodes Overall: posterior cervical chain benign 07/31/2015 None Full Exam - General 1994 Musculoskeletal spine, ribs and pelvis Overall: spine benign 07/31/2015 None Full Exam - General 1994 Musculoskeletal spine, ribs and pelvis Overall: sacroiliac joint benign 07/31/2015 None Full Exam - General 1994 Musculoskeletal spine, ribs and pelvis Overall: good posture 07/31/2015 None Full Exam - General 1994 Musculoskeletal head and neck Overall: head atraumatic 07/31/2015 None Full Exam - General 1994 Musculoskeletal head and neck Overall: cervical spine benign 07/31/2015 None Full Exam - General 1994 Integument inspection of skin Overall: few scattered moles, no gross abnormalities 07/31/2015 None Full Exam - General 1994 Neurologic deep tendon reflexes Overall: deep tendon reflexes intact 07/31/2015 None Full Exam - General 1994 Neurologic cranial nerves Overall: crainial nerves 2 - 12 grossly intact 07/31/2015 None Full Exam - General 1994 Psychiatric orientation/consciousness Overall: oriented to person, place and time 07/31/2015 None Full Exam - General 1994 Psychiatric mood and affect Overall: normal mood and affect 07/31/2015 None Full Exam - General 1994 Eyes conjunctiva /eyelids Conjunctiva: erythema 07/31/2015 None Full Exam - General 1994 Eyes conjunctiva /eyelids Conjunctiva: injection 07/31/2015 None Full Exam - General 1994 Constitutional general appearance Overall: well developed 05/03/2015 None Full Exam - General 1994 Constitutional general appearance Overall: in no acute distress 05/03/2015 None Full Exam - General 1994 Constitutional general appearance Overall: well nourished 05/03/2015 None Full Exam - General 1994 Eyes conjunctiva /eyelids Overall: conjunctiva clear 05/03/2015 None Full Exam - General 1994 Eyes conjunctiva /eyelids Overall: cornea clear 05/03/2015 None Full Exam - General 1994 Eyes conjunctiva /eyelids Overall: eyelids normal 05/03/2015 None Full Exam - General 1994 Eyes pupils and irises Overall: pupils equal, round, reactive to light and accomodation 05/03/2015 None Full Exam - General 1994 Ears/Nose/Throat otoscopic exam Overall: external auditory canals clear 05/03/2015 None Full Exam - General 1994 Ears/Nose/Throat otoscopic exam Overall: tympanic membranes clear 05/03/2015 None Full Exam - General 1994 Ears/Nose/Throat oral cavity/pharynx/larynx Overall: oral mucosa clear 05/03/2015 None Full Exam - General 1994 Ears/Nose/Throat oral cavity/pharynx/larynx Overall: oropharyngeal mucosa clear 05/03/2015 None Full Exam - General 1994 Ears/Nose/Throat oral cavity/pharynx/larynx Overall: no masses 05/03/2015 None Full Exam - General 1994 Respiratory auscultation Overall: breath sounds clear bilaterally 05/03/2015 None Full Exam - General 1994 Respiratory respiratory effort/rhythm Overall: no retractions 05/03/2015 None Full Exam - General 1994 Respiratory respiratory effort/rhythm Overall: normal rate 05/03/2015 None Full Exam - General 1994 Cardiovascular auscultation of heart Overall: regular rate 05/03/2015 None Full Exam - General 1994 Cardiovascular auscultation of heart Overall: normal heart sounds 05/03/2015 None Full Exam - General 1994 Abdomen abdominal exam Overall: no tenderness 05/03/2015 None Full Exam - General 1994 Abdomen abdominal exam Overall: normal bowel sounds 05/03/2015 None Full Exam - General 1994 Lymphatic neck nodes Overall: anterior cervical chain benign 05/03/2015 None Full Exam - General 1994 Lymphatic neck nodes Overall: posterior cervical chain benign 05/03/2015 None Full Exam - General 1994 Musculoskeletal spine, ribs and pelvis Overall: spine benign 05/03/2015 None Full Exam - General 1994 Neurologic deep tendon reflexes Overall: deep tendon reflexes intact 05/03/2015 None Full Exam - General 1994 Neurologic cranial nerves Overall: crainial nerves 2 - 12 grossly intact 05/03/2015 None Full Exam - General 1994 Psychiatric orientation/consciousness Overall: oriented to person, place and time 05/03/2015 None Full Exam - General 1994 Psychiatric mood and affect Mood: flat 05/03/2015 None Full Exam - General 1994 Psychiatric mood and affect Mood: depressed 05/03/2015 None Full Exam - General 1994 Psychiatric mood and affect Affect: mood congruent 05/03/2015 None Full Exam - General 1994 Psychiatric orientation/consciousness Overall: oriented to person, place and time 02/07/2015 None Full Exam - General 1994 Psychiatric mood and affect Mood: depressed 02/07/2015 None Full Exam - General 1994 Psychiatric mood and affect Mood: flat 02/07/2015 None Full Exam - General 1994 Psychiatric mood and affect Affect: mood congruent 02/07/2015 None Full Exam - General 1994 Neurologic deep tendon reflexes Overall: deep tendon reflexes intact 02/07/2015 None Full Exam - General 1994 Neurologic cranial nerves Overall: crainial nerves 2 - 12 grossly intact 02/07/2015 None Full Exam - General 1994 Musculoskeletal spine, ribs and pelvis Overall: spine benign 02/07/2015 None Full Exam - General 1994 Lymphatic neck nodes Overall: anterior cervical chain benign 02/07/2015 None Full Exam - General 1994 Lymphatic neck nodes Overall: posterior cervical chain benign 02/07/2015 None Full Exam - General 1994 Abdomen abdominal exam Overall: normal bowel sounds 02/07/2015 None Full Exam - General 1994 Abdomen abdominal exam Overall: no tenderness 02/07/2015 None Full Exam - General 1994 Cardiovascular auscultation of heart Overall: regular rate 02/07/2015 None Full Exam - General 1994 Cardiovascular auscultation of heart Overall: normal heart sounds 02/07/2015 None Full Exam - General 1994 Respiratory auscultation Overall: breath sounds clear bilaterally 02/07/2015 None Full Exam - General 1994 Respiratory respiratory effort/rhythm Overall: normal rate 02/07/2015 None Full Exam - General 1994 Respiratory respiratory effort/rhythm Overall: no retractions 02/07/2015 None Full Exam - General 1994 Ears/Nose/Throat otoscopic exam Overall: tympanic membranes clear 02/07/2015 None Full Exam - General 1994 Ears/Nose/Throat otoscopic exam Overall: external auditory canals clear 02/07/2015 None Full Exam - General 1994 Ears/Nose/Throat oral cavity/pharynx/larynx Overall: oropharyngeal mucosa clear 02/07/2015 None Full Exam - General 1994 Ears/Nose/Throat oral cavity/pharynx/larynx Overall: no masses 02/07/2015 None Full Exam - General 1994 Ears/Nose/Throat oral cavity/pharynx/larynx Overall: oral mucosa clear 02/07/2015 None Full Exam - General 1994 Constitutional general appearance Overall: well nourished 02/07/2015 None Full Exam - General 1994 Constitutional general appearance Overall: well developed 02/07/2015 None Full Exam - General 1994 Constitutional general appearance Overall: in no acute distress 02/07/2015 None Full Exam - General 1994 Eyes conjunctiva /eyelids Overall: conjunctiva clear 02/07/2015 None Full Exam - General 1994 Eyes conjunctiva /eyelids Overall: eyelids normal 02/07/2015 None Full Exam - General 1994 Eyes conjunctiva /eyelids Overall: cornea clear 02/07/2015 None Full Exam - General 1994 Eyes pupils and irises Overall: pupils equal, round, reactive to light and accomodation 02/07/2015 None Procedures Procedure Codes Date REMOVAL OF SKIN TAGS <W/15 CPT-4: 33486 09/02/2016 DESTRUCT PREMALG LESION CPT-4: 05588 09/02/2016 ADMIN INFLUENZA VIRUS VAC CPT-4: G0008 07/01/2016 IIV4 FLU VACC NO PRESERV ID SNOMED CT: 02630610 CPT-4: 35351 07/01/2016 THER/PROPH/DIAG INJ SC/IM CPT-4: 70623 04/06/2016 DESTRUCT PREMALG LESION CPT-4: 15686 04/06/2016 THER/PROPH/DIAG INJ SC/IM CPT-4: 99862 02/13/2016 Vital Signs Date Vital 09/28/2017 Blood Pressure 1: 122/70 Code : 8480-6 BMI: 29.9 Code : 49054-4 Heart Rate 1 : 87 bpm Height: 5'7" SpO2: 95% Weight: 191 lbs 08/19/2017 Blood Pressure 1: 116/74 Code : 8480-6 BMI: 27.1 Code : 96623-5 Heart Rate 1 : 80 bpm Height: 5'7" SpO2: 98% Weight: 173 lbs 07/27/2017 Blood Pressure 1: 126/74 Code : 8480-6 BMI: 27.1 Code : 26492-1 Heart Rate 1 : 92 bpm Height: 5'7" SpO2: 94% Weight: 173 lbs 07/01/2017 Blood Pressure 1: 118/72 Code : 8480-6 BMI: 29.0 Code : 28716-4 Heart Rate 1 : 83 bpm Height: 5'7" SpO2: 96% Weight: 185 lbs 06/17/2017 Blood Pressure 1: 114/78 Code : 8480-6 BMI: 29.9 Code : 07879-1 Heart Rate 1 : 70 bpm Height: 5'7" SpO2: 96% Weight: 191 lbs 05/31/2017 Blood Pressure 1: 116/80 Code : 8480-6 BMI: 30.9 Code : 79397-8 Heart Rate 1 : 90 bpm Height: 5'7" SpO2: 96% Weight: 197 lbs 01/27/2017 Blood Pressure 1: 128/80 Code : 8480-6 BMI: 33.8 Code : 75821-7 Heart Rate 1 : 89 bpm Height: 5'7" SpO2: 97% Weight: 216 lbs 11/25/2016 Blood Pressure 1: 112/66 Code : 8480-6 BMI: 35.2 Code : 78942-1 Heart Rate 1 : 88 bpm Height: 5'7" SpO2: 96% Weight: 225 lbs 09/02/2016 Blood Pressure 1: 124/84 Code : 8480-6 BMI: 35.1 Code : 80999-7 Heart Rate 1 : 84 bpm Height: 5'7" SpO2: 96% Weight: 224 lbs 07/01/2016 Blood Pressure 1: 115/70 Code : 8480-6 BMI: 34.5 Code : 35899-7 Heart Rate 1 : 86 bpm Height: 5'7" SpO2: 98% Weight: 220 lbs 06/03/2016 Blood Pressure 1: 120/74 Code : 8480-6 BMI: 35.4 Code : 44511-3 Heart Rate 1 : 87 bpm Height: 5'7" SpO2: 97% Weight: 226 lbs 04/06/2016 Blood Pressure 1: 130/80 Code : 8480-6 BMI: 35.2 Code : 88435-2 Heart Rate 1 : 95 bpm Height: 5'7" SpO2: 95% Weight: 225 lbs 02/13/2016 Blood Pressure 1: 140/80 Code : 8480-6 BMI: 36.0 Code : 57234-3 Heart Rate 1 : 96 bpm Height: 5'7" SpO2: 99% Weight: 230 lbs 01/07/2016 Blood Pressure 1: 128/88 Code : 8480-6 BMI: 34.0 Code : 80446-4 Heart Rate 1 : 89 bpm Height: 5'7" SpO2: 97% Weight: 217 lbs 11/26/2015 Blood Pressure 1: 118/70 Code : 8480-6 BMI: 34.5 Code : 11008-1 Heart Rate 1 : 90 bpm Height: 5'7" SpO2: 96% Weight: 220 lbs 8 oz 10/28/2015 Blood Pressure 1: 128/72 Code : 8480-6 BMI: 34.5 Code : 66760-9 Heart Rate 1 : 90 bpm Height: 5'7" SpO2: 97% Weight: 220 lbs 07/31/2015 Blood Pressure 1: 122/80 Code : 8480-6 BMI: 31.6 Code : 05393-9 Heart Rate 1 : 87 bpm Height: 5'7" SpO2: 94% Weight: 202 lbs 05/03/2015 Blood Pressure 1: 118/68 Code : 8480-6 BMI: 29.1 Code : 88554-1 Heart Rate 1 : 86 bpm Height: 5'7" SpO2: 97% Weight: 186 lbs 02/07/2015 Blood Pressure 1: 120/82 Code : 8480-6 BMI: 28.5 Code : 03819-9 Heart Rate 1 : 80 bpm Height: 5'7" Weight: 182 lbs Functional Status No Functional Status data History of Present Illness Symptom Name Status Result Effective Date Notes diabetes mellitus Onset of Symptom onset as an adult 09/28/2017 None diabetes mellitus Quality non-insulin dependent 09/28/2017 None diabetes mellitus Severity mild 09/28/2017 None diabetes mellitus Alleviating Factors medication 09/28/2017 None diabetes mellitus Exacerbating Factors diet 09/28/2017 None diabetes mellitus Nutrition regular diet 09/28/2017 None diabetes mellitus Pertinent Findings Denies dizziness 09/28/2017 None diabetes mellitus Pertinent Findings Denies dyspnea 09/28/2017 None diabetes mellitus Pertinent Findings Denies nausea 09/28/2017 None hypothyroid Onset and Resolution ongoing 09/28/2017 None hypothyroid Alleviating Factors medication 09/28/2017 None hyperlipidemia Onset and Resolution gradual in onset 09/28/2017 None hyperlipidemia Onset of Symptom during adulthood 09/28/2017 None hyperlipidemia Exacerbating Factors diet 09/28/2017 None hyperlipidemia Quality increased cholesterol 09/28/2017 None hyperlipidemia Quality increased LDL 09/28/2017 None hyperlipidemia Quality increased TG 09/28/2017 None cough Location in the lung 09/28/2017 None cough Quality acute None cough Quality intermittent 09/28/2017 None cough Onset and Resolution sudden in onset 09/28/2017 None cough Onset of Symptom 1 weeks ago 09/28/2017 None cough Pertinent Findings chest discomfort 09/28/2017 None cough Pertinent Findings Denies fever 09/28/2017 None cough Pertinent Findings chills 09/28/2017 None cough Pertinent Findings nasal congestion 09/28/2017 None cough Pertinent Findings hoarseness 09/28/2017 None cough Pertinent Findings Denies muscle aches 09/28/2017 None cough Pertinent Findings post nasal drip 09/28/2017 None cough Pertinent Findings sputum production 09/28/2017 None diabetes mellitus Test results Pt not checking blood glucose readings at home 09/28/2017 None Hospital Follow Up _ Other: _ 08/19/2017 None spasms/spasticity Location diffusely 07/27/2017 in mouth and tongue spasms/spasticity Quality acute 07/27/2017 None spasms/spasticity Onset and Resolution ongoing 07/27/2017 None spasms/spasticity Onset of Symptom 2-3 months ago 07/27/2017 None spasms/spasticity Frequency of Episodes daily 07/27/2017 None spasms/spasticity Triggers no known associated factors 07/27/2017 None paresthesia Location laterally 07/27/2017 None paresthesia Location on the left hand 07/27/2017 None paresthesia Quality acute 07/27/2017 None paresthesia Onset and Resolution sudden in onset 07/27/2017 None paresthesia Onset of Symptom 10 days ago 07/27/2017 None diarrhea Quality acute 07/01/2017 None diarrhea Quality watery 07/01/2017 None diarrhea Onset and Resolution sudden in onset 07/01/2017 None diarrhea Onset and Resolution ongoing 07/01/2017 None diarrhea Onset of Symptom 6 weeks ago 07/01/2017 None diarrhea Frequency of Episodes increasing 07/01/2017 None diarrhea Timing of Episodes in the evening 07/01/2017 None diarrhea Triggers no known associated factors 07/01/2017 None diarrhea Pertinent Findings Denies nausea 07/01/2017 None spasms/spasticity Location diffusely 07/01/2017 in mouth and tongue spasms/spasticity Quality acute 07/01/2017 None spasms/spasticity Onset and Resolution ongoing 07/01/2017 None spasms/spasticity Onset of Symptom 2-3 months ago 07/01/2017 None spasms/spasticity Frequency of Episodes daily 07/01/2017 None spasms/spasticity Triggers no known associated factors 07/01/2017 None paresthesia Location laterally 07/01/2017 None paresthesia Location on the left hand 07/01/2017 None paresthesia Quality acute 07/01/2017 None paresthesia Onset and Resolution sudden in onset 07/01/2017 None paresthesia Onset of Symptom 10 days ago 07/01/2017 None diarrhea Quality acute 06/17/2017 None diarrhea Quality watery 06/17/2017 None diarrhea Onset and Resolution ongoing 06/17/2017 None diarrhea Onset and Resolution sudden in onset 06/17/2017 None diarrhea Onset of Symptom 6 weeks ago 06/17/2017 None diarrhea Frequency of Episodes increasing 06/17/2017 None diarrhea Timing of Episodes in the evening 06/17/2017 None diarrhea Triggers no known associated factors 06/17/2017 None diarrhea Pertinent Findings Denies nausea 06/17/2017 None spasms/spasticity Quality acute 06/17/2017 None spasms/spasticity Onset and Resolution ongoing 06/17/2017 None spasms/spasticity Frequency of Episodes daily 06/17/2017 None spasms/spasticity Triggers no known associated factors 06/17/2017 None spasms/spasticity Onset of Symptom 2-3 months ago 06/17/2017 None spasms/spasticity Location diffusely 06/17/2017 in mouth and tongue diabetes mellitus Onset of Symptom onset as an adult 05/31/2017 None diabetes mellitus Quality non-insulin dependent 05/31/2017 None diabetes mellitus Severity mild 05/31/2017 None diabetes mellitus Alleviating Factors medication 05/31/2017 None diabetes mellitus Exacerbating Factors diet 05/31/2017 None diabetes mellitus Nutrition regular diet 05/31/2017 None diabetes mellitus Pertinent Findings Denies dizziness 05/31/2017 None diabetes mellitus Pertinent Findings Denies dyspnea 05/31/2017 None diabetes mellitus Pertinent Findings Denies nausea 05/31/2017 None hypothyroid Onset and Resolution ongoing 05/31/2017 None hypothyroid Alleviating Factors medication 05/31/2017 None hyperlipidemia Onset and Resolution gradual in onset 05/31/2017 None hyperlipidemia Onset of Symptom during adulthood 05/31/2017 None hyperlipidemia Exacerbating Factors diet 05/31/2017 None hyperlipidemia Quality increased cholesterol 05/31/2017 None hyperlipidemia Quality increased LDL 05/31/2017 None hyperlipidemia Quality increased TG 05/31/2017 None diabetes mellitus Test results Pt not checking blood glucose readings at home 05/31/2017 None diabetes mellitus Onset of Symptom onset as an adult 01/27/2017 None diabetes mellitus Quality non-insulin dependent 01/27/2017 None diabetes mellitus Severity mild 01/27/2017 None diabetes mellitus Alleviating Factors medication 01/27/2017 None diabetes mellitus Exacerbating Factors diet 01/27/2017 None diabetes mellitus Nutrition regular diet 01/27/2017 None diabetes mellitus Pertinent Findings Denies dizziness 01/27/2017 None diabetes mellitus Pertinent Findings Denies dyspnea 01/27/2017 None diabetes mellitus Pertinent Findings Denies nausea 01/27/2017 None hypothyroid Onset and Resolution ongoing 01/27/2017 None hypothyroid Alleviating Factors medication 01/27/2017 None diabetes mellitus Test results Pt not checking blood glucose readings at home 01/27/2017 None hyperlipidemia Quality increased cholesterol 01/27/2017 None hyperlipidemia Quality increased TG 01/27/2017 None hyperlipidemia Quality increased LDL 01/27/2017 None hyperlipidemia Onset and Resolution gradual in onset 01/27/2017 None hyperlipidemia Onset of Symptom during adulthood 01/27/2017 None hyperlipidemia Exacerbating Factors diet 01/27/2017 None diabetes mellitus Onset of Symptom onset as an adult 11/25/2016 None diabetes mellitus Quality non-insulin dependent 11/25/2016 None diabetes mellitus Severity mild 11/25/2016 None diabetes mellitus Alleviating Factors medication 11/25/2016 None diabetes mellitus Exacerbating Factors diet 11/25/2016 None diabetes mellitus Nutrition regular diet 11/25/2016 None diabetes mellitus Pertinent Findings Denies dizziness 11/25/2016 None diabetes mellitus Pertinent Findings Denies dyspnea 11/25/2016 None diabetes mellitus Pertinent Findings Denies nausea 11/25/2016 None hypothyroid Onset and Resolution ongoing 11/25/2016 None hypothyroid Alleviating Factors medication 11/25/2016 None diabetes mellitus Blood glucose levels between 60 and 120 11/25/2016 - she is checking in the morning - two hours after breakfast - diabetes mellitus Glucose monitoring daily 11/25/2016 None diabetes mellitus Onset of Symptom onset as an adult 09/02/2016 None diabetes mellitus Quality non-insulin dependent 09/02/2016 None diabetes mellitus Severity mild 09/02/2016 None diabetes mellitus Alleviating Factors medication 09/02/2016 None diabetes mellitus Exacerbating Factors diet 09/02/2016 None diabetes mellitus Nutrition regular diet 09/02/2016 None diabetes mellitus Pertinent Findings Denies dizziness 09/02/2016 None diabetes mellitus Pertinent Findings Denies nausea 09/02/2016 None hypothyroid Onset and Resolution ongoing 09/02/2016 None hypothyroid Alleviating Factors medication 09/02/2016 None constipation Quality intermittent 09/02/2016 None diabetes mellitus Test results Pt checking blood glucose at home, see scanned readings 2015 None diabetes mellitus Glucose monitoring fasting 09/02/2016 None diabetes mellitus Pertinent Findings Denies dyspnea 09/02/2016 None constipation Onset and Resolution ongoing 09/02/2016 None diabetes mellitus Severity mild 07/01/2016 None diabetes mellitus Exacerbating Factors diet 07/01/2016 None diabetes mellitus Nutrition regular diet 07/01/2016 None diabetes mellitus Pertinent Findings Denies dizziness 07/01/2016 occasionally diabetes mellitus Pertinent Findings Denies nausea 07/01/2016 occ with the dizziness diabetes mellitus Onset of Symptom onset as an adult 07/01/2016 None diabetes mellitus Test results Pt checking blood glucose readings, did not bring results to clinic 07/01/2016 None diabetes mellitus Glucose monitoring occasional glucose testing 07/01/2016 - fasting this morning of 136 diabetes mellitus Alleviating Factors medication 07/01/2016 None diabetes mellitus Quality non-insulin dependent 07/01/2016 None hypothyroid Onset and Resolution ongoing 07/01/2016 None hypothyroid Alleviating Factors medication 07/01/2016 None constipation Quality intermittent 07/01/2016 --Improved constipation Quality intermittent 06/03/2016 None pelvic pain Onset and Resolution ongoing 06/03/2016 None diabetes mellitus Quality insulin dependent 04/06/2016 None diabetes mellitus Severity mild 04/06/2016 None diabetes mellitus Significant Medications glucagon 04/06/2016 None diabetes mellitus Exacerbating Factors diet 04/06/2016 None diabetes mellitus Nutrition regular diet 04/06/2016 None diabetes mellitus Pertinent Findings Denies dizziness 04/06/2016 occasionally diabetes mellitus Pertinent Findings Denies nausea 04/06/2016 occ with the dizziness diabetes mellitus Pertinent Findings Denies vomiting 04/06/2016 None diabetes mellitus Onset of Symptom onset as an adult 04/06/2016 None diabetes mellitus Exacerbating Factors diet 02/13/2016 None diabetes mellitus Pertinent Findings dizziness 02/13/2016 occasionally diabetes mellitus Pertinent Findings Denies vomiting 02/13/2016 None diabetes mellitus Onset of Symptom onset as an adult 02/13/2016 None diabetes mellitus Quality insulin dependent 02/13/2016 None diabetes mellitus Pertinent Findings nausea 02/13/2016 occ with the dizziness diabetes mellitus Severity mild 02/13/2016 None diabetes mellitus Test results HgbA1c level 7.2 02/13/2016 None diabetes mellitus Blood glucose levels not checking blood sugars 02/13/2016 None diabetes mellitus Significant Medications glucagon 02/13/2016 None diabetes mellitus Nutrition regular diet 02/13/2016 None diabetes mellitus Exercise no exercise 02/13/2016 None diabetes mellitus Quality non-insulin dependent 01/07/2016 None diabetes mellitus Test results HgbA1c level 6.5% 01/07/2016 None diabetes mellitus Glucose monitoring does not test 01/07/2016 None diabetes mellitus Exacerbating Factors diet 01/07/2016 None diabetes mellitus Exercise no exercise 01/07/2016 None diabetes mellitus Onset of Symptom onset as an adult 01/07/2016 None diabetes mellitus Pertinent Findings Denies dizziness 01/07/2016 None diabetes mellitus Pertinent Findings Denies vomiting 01/07/2016 None back pain Location thoracic spine 11/26/2015 None back pain Location lumbar-sacral spine 11/26/2015 None back pain Quality aching 11/26/2015 None back pain Onset and Resolution gradual in onset 11/26/2015 None back pain Limitation on Activities moderately limits activities 11/26/2015 None back pain Frequency of Episodes unchanged 11/26/2015 None back pain Triggers activity 11/26/2015 None constipation Quality chronic 11/26/2015 None constipation Quality intermittent 11/26/2015 None constipation Onset and Resolution ongoing 11/26/2015 None constipation Exacerbating Factors diet changes 11/26/2015 None constipation Exacerbating Factors medication 11/26/2015 None constipation Quality worsening 11/26/2015 None fatigue Onset and Resolution ongoing 11/26/2015 None fatigue Limitation on Activities moderately limits activities 11/26/2015 None fatigue Frequency of Episodes increasing 11/26/2015 None fatigue Quality worsening 11/26/2015 since switching to oxycodone hypothyroid Quality stable 10/28/2015 None hypothyroid Onset and Resolution ongoing 10/28/2015 None hypothyroid Onset of Symptom during adulthood 10/28/2015 None hypothyroid Frequency of Episodes unchanged 10/28/2015 None hypothyroid Triggers no known associated factors 10/28/2015 None hypothyroid Alleviating Factors medication 10/28/2015 None hypothyroid Pertinent Findings decreased energy 10/28/2015 None hypothyroid Pertinent Findings Denies dyspnea 10/28/2015 None hypothyroid Pertinent Findings Denies edema 10/28/2015 None hypothyroid Pertinent Findings Denies weakness 10/28/2015 None back pain Location thoracic spine 10/28/2015 None back pain Location lumbar-sacral spine 10/28/2015 None back pain Quality aching 10/28/2015 None back pain Onset and Resolution gradual in onset 10/28/2015 None back pain Triggers activity 10/28/2015 None constipation Quality chronic 10/28/2015 None constipation Quality intermittent 10/28/2015 None constipation Onset and Resolution ongoing 10/28/2015 None constipation Exacerbating Factors medication 10/28/2015 None constipation Exacerbating Factors diet changes 10/28/2015 None back pain Frequency of Episodes unchanged 10/28/2015 None back pain Limitation on Activities moderately limits activities 10/28/2015 None eye discharge Location in the right eye 07/31/2015 None eye discharge Quality clear 07/31/2015 None eye discharge Onset and Resolution sudden in onset 07/31/2015 None eye discharge Onset of Symptom 4 days ago 07/31/2015 None eye discharge Severity mild 07/31/2015 None eye discharge Frequency of Episodes daily 07/31/2015 None eye discharge Triggers no known associated factors 07/31/2015 None eye discharge Pertinent Findings eye tearing 07/31/2015 None eye discharge Pertinent Findings Denies eyelid swelling 07/31/2015 None hypothyroid Quality stable 05/03/2015 None hypothyroid Onset and Resolution ongoing 05/03/2015 None hypothyroid Onset of Symptom during adulthood 05/03/2015 None hypothyroid Frequency of Episodes unchanged 05/03/2015 None hypothyroid Triggers no known associated factors 05/03/2015 None hypothyroid Alleviating Factors medication 05/03/2015 None hypothyroid Pertinent Findings decreased energy 05/03/2015 None hypothyroid Pertinent Findings Denies dyspnea 05/03/2015 None hypothyroid Pertinent Findings Denies edema 05/03/2015 None hypothyroid Pertinent Findings Denies weakness 05/03/2015 None back pain Location thoracic spine 05/03/2015 None back pain Location lumbar-sacral spine 05/03/2015 None back pain Quality aching 05/03/2015 None back pain Onset and Resolution gradual in onset 05/03/2015 None back pain Triggers activity 05/03/2015 None hypothyroid Quality stable 02/07/2015 None pelvic pain Location diffusely 02/07/2015 chronic pelvic pain Onset and Resolution ongoing 02/07/2015 None pelvic pain Pertinent Findings bladder pain 02/07/2015 bladder feels like it is squeezed. hypothyroid Onset and Resolution ongoing 02/07/2015 None hypothyroid Onset of Symptom during adulthood 02/07/2015 None hypothyroid Frequency of Episodes unchanged 02/07/2015 None hypothyroid Triggers no known associated factors 02/07/2015 None pelvic pain Quality chronic 02/07/2015 None urinary retention/hesitancy Quality chronic 02/07/2015 None urinary retention/hesitancy Onset and Resolution ongoing 02/07/2015 None hypothyroid Alleviating Factors medication 02/07/2015 None hypothyroid Pertinent Findings decreased energy 02/07/2015 None hypothyroid Pertinent Findings Denies edema 02/07/2015 None hypothyroid Pertinent Findings Denies dyspnea 02/07/2015 None hypothyroid Pertinent Findings Denies weakness 02/07/2015 None pelvic pain Onset of Symptom 6 years ago 02/07/2015 None pelvic pain Frequency of Episodes unchanged 02/07/2015 None pelvic pain Significant Medical Conditions trauma 02/07/2015 None pelvic pain Triggers no known associated factors 02/07/2015 None pelvic pain Alleviating Factors medication 02/07/2015 None urinary retention/hesitancy Frequency of Episodes unchanged 02/07/2015 None urinary retention/hesitancy Triggers no known associated factors 02/07/2015 None urinary retention/hesitancy Pertinent Findings Denies fever 02/07/2015 None urinary retention/hesitancy Pertinent Findings Denies nausea 02/07/2015 None urinary retention/hesitancy Pertinent Findings pelvic pain 02/07/2015 None urinary retention/hesitancy Pertinent Findings Denies vomiting 02/07/2015 None urinary retention/hesitancy Pertinent Findings Denies weight loss 02/07/2015 None urinary retention/hesitancy Onset of Symptom _ years ago 02/07/2015 None urinary retention/hesitancy Severity moderate 02/07/2015 None urinary retention/hesitancy Significant Medical Conditions malignancy 02/07/2015 None urinary retention/hesitancy Alleviating Factors medication 02/07/2015 None Advance Directives No Advance Directive data Encounters Encounter Performer Location Codes Date ([id number]) [id number] EST. PATIENT, LEVEL IV Diagnosis: Type 2 diabetes mellitus without complications[ICD10: E11.9] Diagnosis: Essential (primary) hypertension[ICD10: I10] Diagnosis: Chronic pain syndrome[ICD10: G89.4] Magnolia Yang MD, [facility] CPT-4: 72171 09/28/2017 ([id number]) 30327 EST. PATIENT, LEVEL IV Diagnosis: Essential (primary) hypertension[ICD10: I10] Diagnosis: Type 2 diabetes mellitus without complications[ICD10: E11.9] Diagnosis: Major depressive disorder, single episode, severe with psychotic features[ICD10: F32.3] Diagnosis: Cervicalgia[ICD10: M54.2] Diagnosis: Low back pain[ICD10: M54.5] Magnolia Yang MD, [facility] CPT- 4: 37923 08/19/2017 88146 EST. 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 PATIENT, LEVEL IV Diagnosis: Atrophy of thyroid (acquired)[ICD10: E03.4] Diagnosis: Type 2 diabetes mellitus with hyperglycemia[ICD10: E11.65] Diagnosis: Essential (primary) hypertension[ICD10: I10] Magnolia Yang MD [facility] CPT-4: 25803 05/31/2017 ([id number]) 74203 EST. PATIENT, LEVEL IV Diagnosis: Type 2 diabetes mellitus with hyperglycemia[ICD10: E11.65] Diagnosis: Essential (primary) hypertension[ICD10: I10] Diagnosis: Chronic pain syndrome[ICD10: G89.4] Magnolia Yang MD [facility] CPT-4: 32688 01/27/2017 ([id number]) 25457 EST. PATIENT, LEVEL IV Diagnosis: Atrophy of thyroid (acquired)[ICD10: E03.4] Diagnosis: Type 2 diabetes mellitus with hyperglycemia[ICD10: E11.65] Diagnosis: Vitamin B12 deficiency anemia due to intrinsic factor deficiency[ ICD10: D51.0] Diagnosis: Generalized anxiety disorder[ICD10: F41.1] Diagnosis: Chronic pain syndrome[ICD10: G89.4] Magnolia Yang MD [facility] CPT-4: 71373 11/25/2016 ([id number]) 69454 EST. PATIENT, LEVEL IV Diagnosis: Type 2 diabetes mellitus without complications[ICD10: E11.9] Diagnosis: Personal history of other diseases of the digestive system[ICD10: Z87.19] Diagnosis: Other diseases of salivary glands[ICD10: K11.8] Diagnosis: Actinic keratosis[ICD10: L57.0] Diagnosis: Other hypertrophic disorders of the skin[ICD10: L91.8] Magnolia Yang MD [facility] CPT-4: 15532 09/02/2016 ([id number]) 13417 EST. PATIENT, LEVEL IV Diagnosis: Type 2 diabetes mellitus with hyperglycemia[ICD10: E11.65] Diagnosis: Encounter for immunization[ICD10: Z23] Diagnosis: Slow transit constipation[ICD10: K59.01] Diagnosis: Chronic pain syndrome[ICD10: G89.4] Magnolia Yang MD, [facility] CPT-4: 25312 07/01/2016 [id number]) 96032 EST. PATIENT, LEVEL IV Diagnosis: Type 2 diabetes mellitus with hyperglycemia[ICD10: E11.65] Diagnosis: Atrophy of thyroid (acquired)[ICD10: E03.4] Diagnosis: Chronic pain syndrome[ICD10: G89.4] Diagnosis: Slow transit constipation[ICD10: K59.01] Magnolia Yang MD, [facility] CPT-4: 92803 06/03/2016 [id number]) 32966 EST. PATIENT, LEVEL IV Diagnosis: Type 2 diabetes mellitus with hyperglycemia[ICD10: E11.65] Diagnosis: Vitamin B12 deficiency anemia due to intrinsic factor deficiency[ ICD10: D51.0] Diagnosis: Chronic pain syndrome[ICD10: G89.4] Diagnosis: Essential (primary) hypertension[ICD10: I10] Diagnosis: Actinic keratosis[ICD10: L57.0] Emmanuelle Yang MD, [facility] CPT-4: 09522 04/06/2016 [id number]) 42629 EST. PATIENT, LEVEL IV Diagnosis: Type 2 diabetes mellitus with hyperglycemia[ICD10: E11.65] Diagnosis: Essential (primary) hypertension[ICD10: I10] Diagnosis: Other obesity due to excess calories[ICD10: E66.09] Diagnosis: Generalized anxiety disorder[ICD10: F41.1] Diagnosis: Vitamin B12 deficiency anemia due to intrinsic factor deficiency[ ICD10: D51.0] Emmanuelle Yang MD, [facility] CPT-4: 86418 02/13/2016 [id number]) 17212 EST. PATIENT, LEVEL IV Diagnosis: Type 2 diabetes mellitus with hyperglycemia[ICD10: E11.65] Diagnosis: Chronic pain syndrome[ICD10: G89.4] Diagnosis: Slow transit constipation[ICD10: K59.01] Diagnosis: Other obesity due to excess calories[ICD10: E66.09] Diagnosis: Low back pain[ICD10: M54.5] Emmanuelle Yang MD, [facility] CPT-4: 51390 01/07/2016 ([id number]) 78721 EST. PATIENT, LEVEL IV Diagnosis: Chronic pain syndrome[ICD10: G89.4] Diagnosis: Slow transit constipation[ICD10: K59.01] Diagnosis: Abnormal levels of other serum enzymes[ICD10: R74.8] Magnolia Yang MD, [facility] CPT-4: 86298 11/26/2015 ([id number]) 22655 EST. PATIENT, LEVEL IV Diagnosis: Abnormal levels of other serum enzymes[ICD10: R74.8] Diagnosis: Chronic pain syndrome[ICD10: G89.4] Diagnosis: Low back pain[ICD10: M54.5] Magnolia Yang MD, [facility] CPT- 4: 48669 10/28/2015 ([id number]) 25643 EST. PATIENT, LEVEL IV Diagnosis: Hypothyroidism, unspecified[ICD10: E03.9] Diagnosis: Unspecified conjunctivitis[ICD10: H10.9] Diagnosis: Generalized anxiety disorder[ICD10: F41.1] Diagnosis: Other depressive episodes[ICD10: F32.8] Magnolia Yang MD, [facility] CPT-4: 21145 07/31/2015 ([id number]) 65135 EST. PATIENT, LEVEL IV Diagnosis: HYPOTHYROIDISM[ICD9: 244.9] Diagnosis: CHRONIC PAIN SYNDROME[ICD9: 338.4] Diagnosis: BACKACHE[ICD9: 724.5] Magnolia Yang MD, [facility] CPT-4: 73775 05/03/2015 ([id number]) OFFICE VISIT, NEW - LEVEL 4 Diagnosis: HYPOTHYROIDISM[ICD9: 244.9] Diagnosis: Diabetes mellitus[ICD9: 250.00] Diagnosis: Depression[ICD9: 311] Diagnosis: CHRONIC PAIN SYNDROME[ICD9: 338.4] Diagnosis: Anxiety[ICD9: 300.00] Emmanuelle Yang MD, [facility] CPT-4: 53084 02/07/2015 Plan of Care Planned Activity Notes Codes Status Date Appointment: Magnolia Yang WPtel: [address] [place], [place] [phone] [place] (15 min) Moderate 09/28/2017 Patient Education: Patient Medication Summary Completed 09/28/2017 Referral: [facility] WPtel: Referral Initiated 08/23/2017 App[facility]ment: [facility] [phone] [facility] [place] ([facility] min) Complex 08/19/2017 Patient Education: Patient Medication Summary Completed 08/19/2017 Patient Education: Obesity Completed 08/19/2017 Patient Education: Hypertension Completed 08/19/2017 Patient Education: .Cervicalgia Neck Pain Completed 08/19/2017 Care Plan: Referral Order SNOMED-CT : [id number] Pending 08/19/2017 Appointment: [facility] [phone] [facility] [place] ([place] min) Complex 07/27/2017 Patient Education: Patient Medication Summary Completed 07/27/2017 Appointment: Magnolia Yang WPtel: [facility] [place] (15 min) Moderate 07/01/2017 Patient Education: Patient Medication Summary Completed 07/01/2017 Appointment: Magnolia Yang WPtel: [facility] [place] (15 min) Moderate 06/17/2017 Patient Education: Patient Medication Summary Completed 06/17/2017 Appointment: Magnolia Yagn WPtel: [facility] [place] ([place] min) Moderate 05/31/2017 Patient Education: Patient Medication Summary Completed 05/31/2017 Patient Education: Obesity Completed 05/31/2017 Care Plan: Comp Metabolic Cancelled 05/31/2017 Care Plan: Cbc With Differential Cancelled 05/31/2017 Care Plan: %Hba1C LOINC : 80503-2 Cancelled 05/31/2017 Care Plan: Tsh Cancelled 05/31/2017 Care Plan: Lipid Cancelled 05/31/2017 Care Plan: Microalbumin Cancelled 05/31/2017 Care Plan: SCREENINGMAMMOGRAPHYDIGITAL LOINC : 12729-9 Cancelled 05/31/2017 Appointment: [facility] [phone] [facility] [place] ([place] min) Moderate 04/26/2017 Appointment: aMgnolia [facility] [phone] [facility] [place] (15 min) Moderate 01/27/2017 Patient Education: Patient Medication Summary Completed 01/27/2017 Patient Education: Obesity Completed 01/27/2017 Appointment: [facility] [phone] [facility] [place] ([place] min) Complex 11/25/2016 Patient Education: Patient Medication Summary Completed 11/25/2016 Patient Education: Obesity Completed 11/25/2016 Appointment: Magnolia Yang WPtel[facility] [place] ([place]) Complex 09/02/2016 Patient Education: Patient Medication Summary Completed 09/02/2016 Patient Education: Obesity Completed 09/02/2016 Appointment: Magnolia Yang WPtel: [facility] [place] ([place]) Complex 07/01/2016 Patient Education: Patient Medication Summary Completed 07/01/2016 Appointment: Emmanuelle Reyes WPtel[phone] [place] (30 min) Complex 06/09/2016 Appointment: Magnolia Yang WPtel: [facility] [place] (15 min) Moderate 06/03/2016 Patient Education: Patient Medication Summary Completed 06/03/2016 Patient Education: Obesity Completed 06/03/2016 Appointment: Emmanuelle Reyes WPtel[phone] [place] (30 min) Complex 04/06/2016 Patient Education: Patient Medication Summary Completed 04/06/2016 Patient Education: Obesity Completed 04/06/2016 Appointment: Emmanuelle Reyes WPtel: [phone] [place] (30 min) Complex 02/13/2016 Patient Education: Patient Medication Summary Completed 02/13/2016 Patient Education: Obesity Completed 02/13/2016 Care Plan: BMI Above normal followup SELF-MGMT EDUC & TRAIN 1 PT Pending 2015 Care Plan: COMPLETE CBC AUTOMATED LOINC : 69839-6 Pending 02/13/2016 Appointment: Emmanuelle Reyes WPtel: [phone] [phone] [place] (30 min) Complex 01/07/2016 Patient Education: Patient Medication Summary Completed 01/07/2016 Patient Education: Obesity Completed 01/07/2016 Care Plan: BMI Above normal followup SELF-MGMT EDUC & TRAIN 1 PT Pending 2015 Appointment: Emmanuelle Reyes WPtel: [phone] [phone] [place] (30 min) Complex 01/02/2016 Appointment: Magnolia Yang WPtel: [facility] [place] (15 min) Moderate 11/26/2015 Patient Education: Patient Medication Summary Completed 11/26/2015 Patient Education: Obesity Completed 11/26/2015 Appointment: [facility] [phone] [facility] [place] (15 min) Moderate 10/28/2015 Patient Education: Patient Medication Summary Completed 10/28/2015 Appointment: [facility] [phone] [facility] [place] (15 min) Moderate 07/31/2015 Patient Education: Patient Medication Summary Completed 07/31/2015 Appointment: [facility] [phone] [facility] [place] (10 min) Simple 05/03/2015 Patient Education: Patient Medication Summary Completed 05/03/2015 Appointment: (S) New Patient 02/07/2015 Patient Education: Patient Medication Summary Completed 02/07/2015 Care Plan: COMPLETE CBC AUTOMATED LOINC : 16320-6 Ordered 02/07/2015 Referral: [facility] WPtel: Referral Appointment Requested Instructions No Instructions
--- OUTSIDE RECORDS SUMMARY | 2018-06-02 12:08 | XMS REPORT ---
Author Author NARDA PINO [facility] [address] Address [address] [place] [address] Care Team Providers Care Detective Bowling Alley Name Role Phone NARDA PINO Unavailable PROBLEMS Type Condition ICD9-CM Code EXA69-LM Code Onset Dates Condition Status SNOMED Code Problem Major depressive disorder, recurrent, moderate F33.1 Active 94166837 ALLERGIES Substance Reaction Event Type Date Status Ibuprofen stomach "bleeds" Drug Allergy Nov, Active Gentian Tonya Lesions Drug Allergy Nov, Active ENCOUNTERS Encounter Location Date Diagnosis [place] [id number] [place] [address] 55579- 7550 Apr, [place] [id number] [place] [address] 87410- 3116 Nov, Major depressive disorder, recurrent, moderate F33.1 [place] [id number] [place] [address] 96265- 2908 Sep, Major depressive disorder, recurrent, moderate F33.1 [facility] [place] [id number] [place] [address] 12294- 1473 Jul, Major depressive disorder, recurrent, moderate F33.1 [facility] [place] [id number] [place] [address] 43287- 3588 Jun, [facility] [place] [id number] [place] [address] 83867- 3726 Apr, Major depressive disorder, recurrent, moderate F33.1 [facility] [place] [id number] [place] [address] 87438- 2640 Dec, Major depressive disorder, recurrent, moderate F33.1 [facility] [place] [id number] [place] [address] 72701- 3010 Sep, Major depressive disorder, recurrent, moderate F33.1 [facility] [place] [id number] [place] [address] 78577- 7004 Jul, Major depressive disorder, recurrent, moderate F33.1 [facility] [place] [id number] [place] [address] 33362- 9378 Jun, Major depressive disorder, recurrent, moderate F33.1 [facility] [place] [id number] [place] [address] 93298- 6556 Jun, Major depressive disorder, recurrent, moderate F33.1 [facility] [place] [id number] [place] [address] 20664- 1158 Apr, [facility] [place] [id number] [place] [address] 47721- 9337 January, Posttraumatic stress disorder F43.10 [facility] [place] [id number] [place] [address] 46883- 9271 January, [facility] [place] [id number] [place] [address] 20070- 0220 Dec, [facility] [place] [id number] [place] [address] 53664- 8453 Sep, 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 ; Major depressive disorder, recurrent, moderate F33.1 and 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 [facility] [place] [id number] [place] [address] 78022- 5361 Jun, 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 and 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 [facility] [place] [id number] [place] [address] 06248- 9896 Mar, Somatization disorder 300.81 [facility] [place] [id number] [place] [address] 16486- 6334 Feb, [facility] [place] [id number] [place] [address] 72944- 3538 Feb, Depression, major, recurrent, moderate 296.32 and Obsessive- compulsive personality disorder 301.4 [facility] [id number] [place] [address] 8248 14 Dec, 2014 [facility] [address] [facility] [id number] 4797 13 Dec, 2014 [facility] [address] [place] [address] 2763 Nov, [facility] [address] [facility] [id number] [place] [address] 17061- 9728 Nov, [facility] [id number] [place] [address], [place] [address]- 2078 Oct, [facility] [id number] [place] [address] 98247- 8480 Oct, [facility] [id number] [place] [address] 99581- 3838 Jul, [facility] [address] [address]- 0712 Jul, [facility] [address] [place] [address]- 9162 Jul, [facility] [address], [place] [address]- 5899 Jul, [facility] [address], [place] [address]- 9913 Jun, [facility] [id number] [address]- 8487 Jun, [facility] [address] 4985 Nov, [facility] [address] 5491 Nov, [facility] [address] [address]- 2009 Oct, [facility] [address] [id number] [place] [address]- 6128 Oct, [facility] [place] [facility] [address] [id number] [place] [address]- 4259 Sep, [facility] [place] [facility] [address] [id number] [place] [address]- 0487 Sep, [facility] [place] [facility] [address] [id number] [place] [address]- 2023 Sep, [facility] [place] [facility] [address] [id number] [place] [address]- 9251 Sep, [facility] [place] [facility] [address] [id number] [place] [address]- 8209 Aug, [facility] [place] [facility] [address] [id number] [place] [address]- 3244 Aug, [facility] [place] [facility] [address] [id number] [place] [address]- 1457 Aug, [facility] [place] [facility] [address] [id number] [place] [address]- 8425 Aug, [facility] [place] [facility] [address] [id number] [place] [address]- 0375 Jun, [facility] [place] [facility] [address] [id number] [place] [address]- 2453 Jun, [facility] [place] [facility] [address] [id number] [place] [address]- 9026 Apr, [facility] [place] [facility] [address] [id number] [place] [address]- 5436 Feb, [facility] [place] [facility] [address] [id number] [place] [address]- 8772 Feb, [facility] [place] [facility] [address] [id number] [place] [address]- 9079 January, [facility] [place] [facility] [address] [id number] [place] [address]- 5596 January, [facility] [address] [id number] [place] [address]- 2259 Dec, [facility] [place] [facility] [address] [id number] [place] [address]- 0796 Nov, [facility] [place] [facility] [address] [id number] [place] [address]- 8633 Nov, [facility] [place] [facility] [address] [id number] [place] [address]- 7661 Oct, [facility] [place] [facility] [address] [id number] [place] [address]- 7069 Oct, [facility] [place] [facility] [address] [id number] [place] [address]- 2730 Oct, [facility] [address] [id number] [place] [address]- 6493 Sep, [facility] [place] [facility] [address] [id number] [place] [address]- 3592 Jun, [facility] [place] [facility] [address] [id number] [place] [address]- 1961 Jun, [facility] [place] [facility] [address] [id number] [place] [address]- 3892 Jun, [facility] [place] [facility] [address] [id number] [place] [address]- 6024 Jun, [facility] [place] [facility] [address] [id number] [place] [address]- 6172 May, [facility] [place] [facility] [address] [id number] [place] [address]- 4256 May, [facility] [place] [facility] [address] [id number] [place] 4730 Apr, [facility] [place] [facility] [address] [id number] [place] [address]- 8780 Apr, [facility] [place] [facility] [address] [id number] [place] [address]- 0956 Apr, [facility] [place] [facility] [address] [id number] [place] [address]- 4606 Mar, [facility] [place] [facility] [address] [id number] [place] [address] 2546 Feb, [facility] [place] [facility] [address] [id number] [place] [address]- 6756 January, [facility] [place] [facility] [address] [id number] [place] [address]- 2036 January, [facility] [place] [facility] [address] [id number] [place] [address]- 6506 Dec, [facility] [place] [facility] [address] [id number] [place] [address]- 3377 Dec, [facility] [place] [facility] [address] [id number] [place] [address]- 1792 Dec, [facility] [place] [facility] [address] [id number] [place] [address]- 1662 Dec, [facility] [place] [facility] [address] [id number] [place] [address]- 1046 Nov, [facility] [place] [facility] [address] [id number] [place] [address]- 6374 14 Nov, 2011 [facility] [place] [facility] [address] [id number] [place] [address]- 6306 13 Nov, 2011 [facility] [place] [facility] [address] [id number] [place] [address]- 4886 05 Nov, 2011 [facility] [place] [facility] [address] [id number] [place] [address]- 1316 10 Oct, 2011 [facility] [place] [facility] [address] [id number] [place] [address]- 2546 Jul, [facility] [place] [facility] [address] [id number] [place] [address]- 6213 Jun, [facility] [place] [id number] [address]- 8933 Jun, [facility] [place] [address], [place] [address]- 8873 Apr, [facility] [place] [address], [place] [address]- 3582 Feb, [facility] [place] [address], [place] [address]- 9843 Aug, [facility] [place] [address], [place] [address]- 4628 Aug, [facility] [place] [address], [place] [address]- 5026 Aug, [facility] [place] [address], [place] [address]- 5633 Jun, IMMUNIZATIONS No Known Immunizations SOCIAL HISTORY Never Assessed REASON FOR VISIT f/u PLAN OF CARE Activity Details Follow Up 6 Weeks, prn Reason: VITAL SIGNS Height 66.5 in 2017-12-15 Weight 192.0 lbs 2017-12-15 Heart Rate 72 bpm 2017-12-15 Respiratory Rate 20 2017-12-15 BMI 30.52 kg/m2 2017-12-15 Blood pressure systolic 120 mmHg 2017-12-15 Blood pressure diastolic 72 mmHg 2017-12-15 MEDICATIONS Medication Instructions Dosage Frequency Start Date End Date Duration Status Zovirax 5 % 2-3 times daily as needed Jul, Active levothyroxine 75 mcg 1 Tablet by Oral route 1 time per day Oct, Active Lyrica 150 MG Orally Three times a day take 1 capsule 8h Nov, Active Abilify 5 MG Orally Once a day 1 tablet 24h 30 day(s) Active Diazepam 5 MG Orally 3 times a day and 1 tablet q6 hrs PRN #60 .5 tab Not-Taking Doxepin HCl 10 mg Orally 3 times a day 1 capsule 8h 30 days Active Invokana 100 MG Orally Once a day 2 tablets 24h Active Robaxin 500 mg Orally 3 times a day 1.5 tablet 8h Active MiraLax 17 gram 1 Powder by Oral route 1 time per day Oct, Active Lipitor 10 MG Orally Once a day 1 tablet 24h Active Albuterol by inhalation route Nov, Active Glucophage 500 MG Orally Twice a day 1Tablet by Oral route 1 time per day 12h Oct, Active Oxycodone HCl 10 MG Orally every 6 hrs 1 tablet as needed 6h Active Pantoprazole Sodium 40 MG Orally Once a day 1 tablet 24h Active Exelon 4.6 MG/24HR Transdermal Once a day 1 patch to skin 24h Active Multivitamin by oral route once daily Jul, Active Cytomel 5 mcg 1 Tablet by Oral route 1 time per day Oct, Not-Taking Calcium Carbonate 200 mg calcium (500 mg) 2 Tablet by Oral route 2 times per day PRN Jul, Active Betamethasone Dipropionate 0.05 % twice daily PRN Jul, Active Estradiol 0.01 % (0.1 mg/gram) 1 Prefilled Applicator by Vaginal route 3 times per week Jul, Not-Taking Cymbalta 60 mg Orally Once a day TAKE TWO CAPSULES BY MOUTH DAILY 24h 30 days Active Triamcinolone Acetonide 0.025 % 1 Lotion by Subcutaneous route PRN Oct, Active Rexulti 2 MG Orally Once a day 1 tablet 24h 30 days Not-Taking Melatonin 5 MG Orally Once a day 1 tablet 24h Active RESULTS No Results PROCEDURES Procedure Date Ordered Result Body Site [facility] VISIT ESTABLISHED PATIENT December 15, 2017 INSTRUCTIONS MEDICATIONS ADMINISTERED No Known Medications MEDICAL (GENERAL) HISTORY Type Description Date Medical History Type II diabetes Medical History HSV I Medical History Hypothyroid Medical History Pelvic Floor Muscle Tension Myalgia
--- OUTSIDE RECORDS SUMMARY | 2018-06-02 12:08 | XMS REPORT ---
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 Problem Major depressive disorder, recurrent, moderate F33.1 Active Assessment Major depressive disorder, recurrent, moderate F33.1 Active Problem Somatization disorder 300.81 Active Problem Posttraumatic stress disorder F43.10 Active Medications Medication Code System Code Instructions Start Date End Date Status Dosage Oxycodone HCl [facility] [address]-26 10 MG Orally every 6 hrs 1 tablet as needed Rexulti [facility] [address]-06 2 MG Orally Once a day 1 tablet Calcium Carbonate [facility] [address]19-38484 200 mg calcium (500 mg) Jul 27, 2014 4-5 Tablet by Oral route 2 times per day PRN Triamcinolone Acetonide [facility] [address]-94 0.025 % Nov 04, 2012 1 Lotion by Subcutaneous route PRN Invokana [facility] [address]-86 100 MG Orally Once a day 2 tablets Betamethasone Dipropionate [facility] [address]-21 0.05 % Jul 27, 2014 twice daily PRN Glucophage [facility] [address]-65 1,000 mg Nov 04, 2012 2 Tablet by Oral route 1 time per day Lyrica [facility] [address]-84 150 MG Orally Three times a day December 07, 2014 take 1 capsule Zovirax [facility] [address]-78 5 % Jul 27, 2014 2-3 times daily as needed Cytomel [facility] [address]-92 5 mcg Nov 04, 2012 1 Tablet by Oral route 1 time per day levothyroxine [facility] 0 75 mcg Nov 04, 2012 1 Tablet by Oral route 1 time per day Multivitamin [facility] 65[address]-97535 Jul 27, 2014 by oral route once daily Diazepam [facility] [address]-23 5 MG Orally 3 times a day and 1 tablet q6 hrs PRN #60 .5 tab Doxepin HCl [facility] [address]-83 10 mg Orally 3 times a day 1 capsule Cymbalta [facility] 62680261970 60 Orally Once a day TAKE TWO CAPSULES BY MOUTH DAILY MiraLax [facility] [address]-30 17 gram Nov 04, 2012 1 Powder by Oral route 1 time per day Procedures Procedure Coding System Code Date Office Visit, Est Pt., Level 2 CPT-4 65772 Jul 10, 2016 [facility] VISIT ESTABLISHED PATIENT CPT-4 G0467 Jul 10, 2016 Vital Signs Date/Time: Jul 10, 2016 Cardiac Monitoring Heart Rate 80 bpm Weight 218.3 lbs Height 66.5 in BMI 34.70 Index Blood Pressure Diastolic 80 mmHg Blood Pressure Systolic 128 mmHg Results No Known Results Summary Purpose eClinicalWorks Submission
--- OUTSIDE RECORDS SUMMARY | 2018-06-02 12:08 | XMS REPORT | CCD ---
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 Comp Metabolic Awr070 ANION GAP 10 12/17/2015 Comp Metabolic Tqb543 GLUCOSE 205 mg/dL 12/17/2015 Comp Metabolic Utd277 Creat 0.7 mg/dL 12/17/2015 Comp Metabolic Ucj536 eGFR 90 ml/min/1.73m2 12/17/2015 Comp Metabolic Xbx984 BUN 19 mg/dL 12/17/2015 Comp Metabolic Uzm835 B/C Ratio 26.8 Ratio 12/17/2015 Comp Metabolic Omp489 CALCIUM 9.6 mg/dL 12/17/2015 Comp Metabolic Amo739 ALK PHOS 299 U/L 12/17/2015 Comp Metabolic Voi170 AST(SGOT) 54 U/L 12/17/2015 Comp Metabolic Zyc560 ALT(SGPT) 108 U/L 12/17/2015 Comp Metabolic Lda947 BILI T 0.3 mg/dL 12/17/2015 Comp Metabolic Ant783 ALBUMIN 4.2 g/dL 12/17/2015 Comp Metabolic Tqu185 TPRO 7.3 g/dL 12/17/2015 Comp Metabolic Jqj570 GLOB 3.1 g/dL 12/17/2015 Comp Metabolic Byd119 A/G Ratio 1.3 Ratio 12/17/2015 Comp Metabolic Rgg345 Osmo 280 mOsmo 12/17/2015 Comp Metabolic Yok932 NA 135 mEq/L 11/18/2015 Comp Metabolic Qyw024 K 4.1 mEq/L 11/18/2015 Comp Metabolic Ccv093 CL 97 mEq/L 11/18/2015 Comp Metabolic Hhd998 CO2 28.0 mEq/L 11/18/2015 Comp Metabolic Qtw537 ANION GAP 14 11/18/2015 Comp Metabolic Spq483 GLUCOSE 144 mg/dL 11/18/2015 Comp Metabolic Bqi810 Creat 0.7 mg/dL 11/18/2015 Comp Metabolic Aqj931 eGFR 93 ml/min/1.73m2 11/18/2015 Comp Metabolic Knh839 BUN 23 mg/dL 11/18/2015 Comp Metabolic Kja015 B/C Ratio 33.3 Ratio 11/18/2015 Comp Metabolic Qpz996 CALCIUM 9.6 mg/dL 11/18/2015 Comp Metabolic Tqy698 ALK PHOS 245 U/L 11/18/2015 Comp Metabolic Sjc190 AST(SGOT) 86 U/L 11/18/2015 Comp Metabolic Ekw515 ALT(SGPT) 132 U/L 11/18/2015 Comp Metabolic Cnn447 BILI T 0.3 mg/dL 11/18/2015 Comp Metabolic Zqv522 ALBUMIN 4.2 g/dL 11/18/2015 Comp Metabolic Qfz958 TPRO 7.2 g/dL 11/18/2015 Comp Metabolic Xwy070 GLOB 3.0 g/dL 11/18/2015 Comp Metabolic Rzi513 A/G Ratio 1.4 Ratio 11/18/2015 Comp Metabolic Mua578 Osmo 276 mOsmo 11/18/2015 Tsh Ord6 hTSH [...] 31.3 pg 10/25/2015 Cbc With Differential Ord2 [place]% 6.4 % 10/25/2015 Cbc With Differential Ord2 MCHC 32.9 pg 10/25/2015 Cbc With Differential Ord2 Eos% 7.7 % 10/25/2015 Cbc With Differential Ord2 PLT 339 K/ul 10/25/2015 Cbc With Differential Ord2 Baso% 0.3 % 10/25/2015 Cbc With Differential Ord2 RDW 13.5 % 10/25/2015 Cbc With Differential Ord2 Neut ABS# 4.14 K/ul 10/25/2015 Cbc With Differential Ord2 Lymph ABS# 1.76 K/ul 10/25/2015 Cbc With Differential Ord2 [place] ABS# 0.4 K/ul 10/25/2015 Cbc With Differential Ord2 Eos ABS# 0.5 K/ul 10/25/2015 Cbc With Differential Ord2 Baso ABS# 0.0 K/ul 10/25/2015 Cbc With Differential Ord2 New Analyzer Notice Please note new ref ranges starting 10-02-2015 due to implemntation of new five part differential hematolgy analyzer. 10/25/2015 Ferritin Ord22 FERRITIN 49.1 ng/mL 10/25/2015 %Hba1C Pdi375 % HbA1c 66854-4 6.7 % 10/25/2015 %Hba1C Xtb119 Gluc Ave 146 mg/dL 10/25/2015 Free T4 Pfd561 FREE T4 0.74 ng/dL 10/25/2015 Tibc Ord40 Iron 71 ug/dl 10/25/2015 Tibc Ord40 UIBC 340 ug/dL 10/25/2015 Tibc Ord40 TIBC 411 ug/dL 10/25/2015 Tibc Ord40 Fe-%Sat 17.3 % 10/25/2015 Lipid Ord30 CHOL 378 mg/dL 10/25/2015 Lipid Ord30 HDL 70.0 mg/dl 10/25/2015 Lipid Ord30 TRIG 538 mg/dL 10/25/2015 Lipid Ord30 LDL 200 mg/dL 10/25/2015 Lipid Ord30 C/HDL 5.4 Ratio 10/25/2015 Comp Metabolic Gak027 NA 136 mEq/L 10/25/2015 Comp Metabolic Psv429 K 4.2 mEq/L 10/25/2015 Comp Metabolic Oho745 CL 97 mEq/L 10/25/2015 Comp Metabolic Ois651 CO2 30.0 mEq/L 10/25/2015 Comp Metabolic Uvq610 ANION GAP 13 10/25/2015 Comp Metabolic Cwv223 GLUCOSE 108 mg/dL 10/25/2015 Comp Metabolic Rnk970 Creat 0.7 mg/dL 10/25/2015 Comp Metabolic Kif578 eGFR 90 ml/min/1.73m2 10/25/2015 Comp Metabolic Fxc012 BUN 14 mg/dL 10/25/2015 Comp Metabolic Zsv890 B/C Ratio 19.7 Ratio 10/25/2015 Comp Metabolic Vip039 CALCIUM 9.8 mg/dL 10/25/2015 Comp Metabolic Qsq809 ALK PHOS 299 U/L 10/25/2015 Comp Metabolic Ibj236 AST(SGOT) 106 U/L 10/25/2015 Comp Metabolic Jxc648 ALT(SGPT) 159 U/L 10/25/2015 Comp Metabolic Aws500 BILI T 0.4 mg/dL 10/25/2015 Comp Metabolic Ktb425 ALBUMIN 4.4 g/dL 10/25/2015 Comp Metabolic Irv446 TPRO 7.5 g/dL 10/25/2015 Comp Metabolic Zgb698 GLOB 3.1 g/dL 10/25/2015 Comp Metabolic Kff670 A/G Ratio 1.4 Ratio 10/25/2015 Comp Metabolic Bje603 Osmo 273 mOsmo 10/25/2015 Review of Systems [...] Date REMOVAL OF SKIN TAGS <W/15 CPT-4: 03381 09/02/2016 DESTRUCT PREMALG LESION CPT-4: 59795 09/02/2016 ADMIN INFLUENZA VIRUS VAC CPT-4: G0008 07/01/2016 IIV4 FLU VACC NO PRESERV ID SNOMED CT: 04554877 CPT-4: 97944 07/01/2016 THER/PROPH/DIAG INJ SC/IM CPT-4: 08923 04/06/2016 DESTRUCT PREMALG LESION CPT-4: 85593 04/06/2016 THER/PROPH/DIAG INJ SC/IM CPT-4: 43943 02/13/2016 Vital Signs Date Vital 09/28/2017 Blood Pressure 1: 122/70 Code : 8480-6 BMI: 29.9 Code : 80680-6 Heart Rate 1 : 87 bpm Height: 5'7" SpO2: 95% Weight: 191 lbs 08/19/2017 Blood Pressure 1: 116/74 Code : 8480-6 BMI: 27.1 Code : 21793-8 Heart Rate 1 : 80 bpm Height: 5'7" SpO2: 98% Weight: 173 lbs 07/27/2017 Blood Pressure 1: 126/74 Code : 8480-6 BMI: 27.1 Code : 50963-4 Heart Rate 1 : 92 bpm Height: 5'7" SpO2: 94% Weight: 173 lbs 07/01/2017 Blood Pressure 1: 118/72 Code : 8480-6 BMI: 29.0 Code : 62831-3 Heart Rate 1 : 83 bpm Height: 5'7" SpO2: 96% Weight: 185 lbs 06/17/2017 Blood Pressure 1: 114/78 Code : 8480-6 BMI: 29.9 Code : 82294-9 Heart Rate 1 : 70 bpm Height: 5'7" SpO2: 96% Weight: 191 lbs 05/31/2017 Blood Pressure 1: 116/80 Code : 8480-6 BMI: 30.9 Code : 08340-2 Heart Rate 1 : 90 bpm Height: 5'7" SpO2: 96% Weight: 197 lbs 01/27/2017 Blood Pressure 1: 128/80 Code : 8480-6 BMI: 33.8 Code : 15811-3 Heart Rate 1 : 89 bpm Height: 5'7" SpO2: 97% Weight: 216 lbs 11/25/2016 Blood Pressure 1: 112/66 Code : 8480-6 BMI: 35.2 Code : 40551-9 Heart Rate 1 : 88 bpm Height: 5'7" SpO2: 96% Weight: 225 lbs 09/02/2016 Blood Pressure 1: 124/84 Code : 8480-6 BMI: 35.1 Code : 52041-1 Heart Rate 1 : 84 bpm Height: 5'7" SpO2: 96% Weight: 224 lbs 07/01/2016 Blood Pressure 1: 115/70 Code : 8480-6 BMI: 34.5 Code : 57864-3 Heart Rate 1 : 86 bpm Height: 5'7" SpO2: 98% Weight: 220 lbs 06/03/2016 Blood Pressure 1: 120/74 Code : 8480-6 BMI: 35.4 Code : 96381-8 Heart Rate 1 : 87 bpm Height: 5'7" SpO2: 97% Weight: 226 lbs 04/06/2016 Blood Pressure 1: 130/80 Code : 8480-6 BMI: 35.2 Code : 01664-5 Heart Rate 1 : 95 bpm Height: 5'7" SpO2: 95% Weight: 225 lbs 02/13/2016 Blood Pressure 1: 140/80 Code : 8480-6 BMI: 36.0 Code : 37859-4 Heart Rate 1 : 96 bpm Height: 5'7" SpO2: 99% Weight: 230 lbs 01/07/2016 Blood Pressure 1: 128/88 Code : 8480-6 BMI: 34.0 Code : 57703-0 Heart Rate 1 : 89 bpm Height: 5'7" SpO2: 97% Weight: 217 lbs 11/26/2015 Blood Pressure 1: 118/70 Code : 8480-6 BMI: 34.5 Code : 88043-0 Heart Rate 1 : 90 bpm Height: 5'7" SpO2: 96% Weight: 220 lbs 8 oz 10/28/2015 Blood Pressure 1: 128/72 Code : 8480-6 BMI: 34.5 Code : 05846-7 Heart Rate 1 : 90 bpm Height: 5'7" SpO2: 97% Weight: 220 lbs 07/31/2015 Blood Pressure 1: 122/80 Code : 8480-6 BMI: 31.6 Code : 43035-6 Heart Rate 1 : 87 bpm Height: 5'7" SpO2: 94% Weight: 202 lbs 05/03/2015 Blood Pressure 1: 118/68 Code : 8480-6 BMI: 29.1 Code : 42835-5 Heart Rate 1 : 86 bpm Height: 5'7" SpO2: 97% Weight: 186 lbs 02/07/2015 Blood Pressure 1: 120/82 Code : 8480-6 BMI: 28.5 Code : 46220-1 Heart Rate 1 : 80 bpm Height: [...] data Encounters Encounter Performer Location Codes Date ([id number]) 04427 EST. PATIENT, LEVEL IV Diagnosis: Type 2 diabetes mellitus without complications[ICD10: E11.9] Diagnosis: Essential (primary) hypertension[ICD10: I10] Diagnosis: Chronic pain syndrome[ICD10: G89.4] Magnolia Yang MD, [facility] CPT-4: 86267 09/28/2017 ([id number]) 76410 EST. PATIENT, LEVEL IV Diagnosis: Essential (primary) hypertension[ICD10: I10] Diagnosis: Type 2 diabetes mellitus without complications[ICD10: E11.9] Diagnosis: Major depressive disorder, single episode, severe with psychotic features[ICD10: F32.3] Diagnosis: Cervicalgia[ICD10: M54.2] Diagnosis: Low back pain[ICD10: M54.5] Magnolia Yang MD, [facility] CPT- 4: 22278 08/19/2017 64429 EST. 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 PATIENT, LEVEL IV Diagnosis: Atrophy of thyroid (acquired)[ICD10: E03.4] Diagnosis: Type 2 diabetes mellitus with hyperglycemia[ICD10: E11.65] Diagnosis: Essential (primary) hypertension[ICD10: I10] Magnolia Yang MD [facility] CPT-4: 25222 05/31/2017 ([id number]) 95907 EST. PATIENT, LEVEL IV Diagnosis: Type 2 diabetes mellitus with hyperglycemia[ICD10: E11.65] Diagnosis: Essential (primary) hypertension[ICD10: I10] Diagnosis: Chronic pain syndrome[ICD10: G89.4] Magnolia Yang MD [facility] CPT-4: 64352 01/27/2017 ([id number]) 24348 EST. PATIENT, LEVEL IV Diagnosis: Atrophy of thyroid (acquired)[ICD10: E03.4] Diagnosis: Type 2 diabetes mellitus with hyperglycemia[ICD10: E11.65] Diagnosis: Vitamin B12 deficiency anemia due to intrinsic factor deficiency[ ICD10: D51.0] Diagnosis: Generalized anxiety disorder[ICD10: F41.1] Diagnosis: Chronic pain syndrome[ICD10: G89.4] Magnolia Yang MD [facility] CPT-4: 88011 11/25/2016 ([id number]) 63603 EST. PATIENT, LEVEL IV Diagnosis: Type 2 diabetes mellitus without complications[ICD10: E11.9] Diagnosis: Personal history of other diseases of the digestive system[ICD10: Z87.19] Diagnosis: Other diseases of salivary glands[ICD10: K11.8] Diagnosis: Actinic keratosis[ICD10: L57.0] Diagnosis: Other hypertrophic disorders of the skin[ICD10: L91.8] Magnolia Yang MD [facility] CPT-4: 37212 09/02/2016 ([id number]) 90242 EST. PATIENT, LEVEL IV Diagnosis: Type 2 diabetes mellitus with hyperglycemia[ICD10: E11.65] Diagnosis: Encounter for immunization[ICD10: Z23] Diagnosis: Slow transit constipation[ICD10: K59.01] Diagnosis: Chronic pain syndrome[ICD10: G89.4] Magnolia Yang MD, [facility] CPT-4: 19760 07/01/2016 ([id number]) 22631 EST. PATIENT, LEVEL IV Diagnosis: Type 2 diabetes mellitus with hyperglycemia[ICD10: E11.65] Diagnosis: Atrophy of thyroid (acquired)[ICD10: E03.4] Diagnosis: Chronic pain syndrome[ICD10: G89.4] Diagnosis: Slow transit constipation[ICD10: K59.01] Magnolia Yang MD, [facility] CPT-4: 60069 06/03/2016 ([id number]) 11395 EST. PATIENT, LEVEL IV Diagnosis: Type 2 diabetes mellitus with hyperglycemia[ICD10: E11.65] Diagnosis: Vitamin B12 deficiency anemia due to intrinsic factor deficiency[ ICD10: D51.0] Diagnosis: Chronic pain syndrome[ICD10: G89.4] Diagnosis: Essential (primary) hypertension[ICD10: I10] Diagnosis: Actinic keratosis[ICD10: L57.0] Emmanuelle Yang MD, [facility] CPT-4: 15001 04/06/2016 ([id number]) 82584 EST. PATIENT, LEVEL IV Diagnosis: Type 2 diabetes mellitus with hyperglycemia[ICD10: E11.65] Diagnosis: Essential (primary) hypertension[ICD10: I10] Diagnosis: Other obesity due to excess calories[ICD10: E66.09] Diagnosis: Generalized anxiety disorder[ICD10: F41.1] Diagnosis: Vitamin B12 deficiency anemia due to intrinsic factor deficiency[ ICD10: D51.0] Emmanuelle Yang MD, [facility] CPT-4: 64762 02/13/2016 ([id number]) 10352 EST. PATIENT, LEVEL IV Diagnosis: Type 2 diabetes mellitus with hyperglycemia[ICD10: E11.65] Diagnosis: Chronic pain syndrome[ICD10: G89.4] Diagnosis: Slow transit constipation[ICD10: K59.01] Diagnosis: Other obesity due to excess calories[ICD10: E66.09] Diagnosis: Low back pain[ICD10: M54.5] Emmanuelle Yang MD, [facility] CPT-4: 62561 01/07/2016 [id number]) 40891 EST. PATIENT, LEVEL IV Diagnosis: Chronic pain syndrome[ICD10: G89.4] Diagnosis: Slow transit constipation[ICD10: K59.01] Diagnosis: Abnormal levels of other serum enzymes[ICD10: R74.8] Magnolia Yang MD, [facility] CPT-4: 72070 11/26/2015 ([id number]) 59653 EST. PATIENT, LEVEL IV Diagnosis: Abnormal levels of other serum enzymes[ICD10: R74.8] Diagnosis: Chronic pain syndrome[ICD10: G89.4] Diagnosis: Low back pain[ICD10: M54.5] Magnolia Yang MD, [facility] CPT- 4: 57725 10/28/2015 ([id number]) 45305 EST. PATIENT, LEVEL IV Diagnosis: Hypothyroidism, unspecified[ICD10: E03.9] Diagnosis: Unspecified conjunctivitis[ICD10: H10.9] Diagnosis: Generalized anxiety disorder[ICD10: F41.1] Diagnosis: Other depressive episodes[ICD10: F32.8] Magnolia Yang MD, [facility] CPT-4: 23072 07/31/2015 ([id number]) 15431 EST. PATIENT, LEVEL IV Diagnosis: HYPOTHYROIDISM[ICD9: 244.9] Diagnosis: CHRONIC PAIN SYNDROME[ICD9: 338.4] Diagnosis: BACKACHE[ICD9: 724.5] Magnolia Yang MD, [facility] CPT-4: 03695 05/03/2015 ([id number]) OFFICE VISIT, NEW - LEVEL 4 Diagnosis: HYPOTHYROIDISM[ICD9: 244.9] Diagnosis: Diabetes mellitus[ICD9: 250.00] Diagnosis: Depression[ICD9: 311] Diagnosis: CHRONIC PAIN SYNDROME[ICD9: 338.4] Diagnosis: Anxiety[ICD9: 300.00] Emmanuelle Yang MD, [facility] CPT-4: 17219 02/07/2015 Plan of Care Planned Activity Notes Codes Status Date Appointment: [phone] [facility] (15 min) Moderate 09/28/2017 Patient Education: Patient Medication Summary Completed 09/28/2017 Referral: [facility]IA [facility] WPtel: Referral Initiated 08/23/2017 Appointment: Magnolia Yang WPtel: [facility] [place] [place] (30 min) Complex 08/19/2017 Patient Education: Patient Medication Summary Completed 08/19/2017 Patient Education: Obesity Completed 08/19/2017 Patient Education: Hypertension Completed 08/19/2017 Patient Education: .Cervicalgia Neck Pain Completed 08/19/2017 Care Plan: Referral Order SNOMED-CT : [id number] Pending 08/19/2017 Appointment: Magnolia Yang WPtel: [facility] [place][note 2]5 [facility] [place] (30 min) Complex 07/27/2017 Patient Education: Patient Medication Summary Completed 07/27/2017 Appointment: Magnolia Yang WPtel: [facility] [place][note 2]5 [facility] [place] (15 min) Moderate 07/01/2017 Patient Education: Patient Medication Summary Completed 07/01/2017 Appointment: Magnolia Yang WPtel: [facility] [place][note 2]5 [facility] [place] (15 min) Moderate 06/17/2017 Patient Education: Patient Medication Summary Completed 06/17/2017 Appointment: Magnolia Yang WPtel: [facility] [place] 2[facility] [place] (15 min) Moderate 05/31/2017 Patient Education: Patient Medication Summary Completed 05/31/2017 Patient Education: Obesity Completed 05/31/2017 Care Plan: Comp Metabolic Cancelled 05/31/2017 Care Plan: Cbc With Differential Cancelled 05/31/2017 Care Plan: %Hba1C LOINC : 60965-7 Cancelled 05/31/2017 Care Plan: Tsh Cancelled 05/31/2017 Care Plan: Lipid Cancelled 05/31/2017 Care Plan: Microalbumin Cancelled 05/31/2017 Care Plan: SCREENINGMAMMOGRAPHYDIGITAL LOINC : 00483-5 Cancelled 05/31/2017 Appointment: Magnolia Yang WPtel: [facility] [place][note 2]5 [facility] [place] (15 min) Moderate 04/26/2017 Appointment: [facility] [phone] [facility] [place] (15 min) Moderate 01/27/2017 Patient Education: Patient Medication Summary Completed 01/27/2017 Patient Education: Obesity Completed 01/27/2017 Appointment: [facility] [phone] [facility] [place] (30 min) Complex 11/25/2016 Patient Education: Patient Medication Summary Completed 11/25/2016 Patient Education: Obesity Completed 11/25/2016 Appointment: [facility] [phone] [facility] [place] ([place] min) Complex 09/02/2016 Patient Education: Patient Medication Summary Completed 09/02/2016 Patient Education: Obesity Completed 09/02/2016 Appointment: [facility] [phone] [facility] [place] ([place] min) Complex 07/01/2016 Patient Education: Patient Medication Summary Completed 07/01/2016 [facility]: [phone] [place] (30 min) Complex 06/09/2016 Appointment: [facility]el[facility] [phone] [facility] [place] (15 min) Moderate 06/03/2016 Patient Education: Patient Medication Summary Completed 06/03/2016 Patient Education: Obesity Completed 06/03/2016 Appointment: Emmaneulle Reyes WPtel: [facility] [place] [place] (30 min) Complex 04/06/2016 Patient Education: Patient Medication Summary Completed 04/06/2016 Patient Education: Obesity Completed 04/06/2016 Appointment: Emmanuelle Reyes WPtel: [phone] [phone] [place] (30 min) Complex 02/13/2016 Patient Education: Patient Medication Summary Completed 02/13/2016 Patient Education: Obesity Completed 02/13/2016 Care Plan: BMI Above normal followup SELF-MGMT EDUC & TRAIN 1 PT Pending 2015 Care Plan: COMPLETE CBC AUTOMATED LOINC : 37377-2 Pending 02/13/2016 Appointment: Emmanuelle Reyes WPtel: [phone] [phone] [place] (30 min) Complex 01/07/2016 Patient Education: Patient Medication Summary Completed 01/07/2016 Patient Education: Obesity Completed 01/07/2016 Care Plan: BMI Above normal followup SELF-MGMT EDUC & TRAIN 1 PT Pending 2015 App[facility]ment: [phone] [facility] [place] (30 min) Complex 01/02/2016 Appointment: [facility] [phone] [facility] [place] (15 min) Moderate 11/26/2015 Patient Education: Patient Medication Summary Completed 11/26/2015 Patient Education: Obesity Completed 11/26/2015 Appointment: [facility] [phone] [facility] [place] (15 min) Moderate 10/28/2015 Patient Education: Patient Medication Summary Completed 10/28/2015 Appointment: [facility]el[facility] [phone] [facility] [place] (15 min) Moderate 07/31/2015 Patient Education: Patient Medication Summary Completed 07/31/2015 Appointment: [facility]el[facility] [phone] [facility] [place] (10 min) Simple 05/03/2015 Patient Education: Patient Medication Summary Completed 05/03/2015 Appointment: (S) New Patient 02/07/2015 Patient Education: Patient Medication Summary Completed 02/07/2015 Care Plan: COMPLETE CBC AUTOMATED LOINC : 55417-5 Ordered 02/07/2015 Referral: [facility] WPtel: Referral Appointment Requested Instructions No Instructions
[2018-06-02 12:09] LABS: PROTHROMBIN TIME PATIENT 12.7 SEC (12.2-14.7)
--- OUTSIDE RECORDS SUMMARY | 2018-06-02 12:09 | XMS REPORT ---
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
--- OUTSIDE RECORDS SUMMARY | 2018-06-02 12:09 | XMS REPORT ---
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 93676813 ALLERGIES Substance Reaction Event Type Date Status Ibuprofen stomach "bleeds" Drug Allergy Dec, Active Gentian Tonya Lesions Drug Allergy Dec, Active SOCIAL HISTORY Never Assessed PLAN OF CARE Activity Details Follow Up 3 Months Reason: VITAL SIGNS Height 66.5 in 2017-01-08 Weight 216 lbs 2017-01-08 Heart Rate 76 bpm 2017-01-08 Respiratory Rate 20 2017-01-08 BMI 34.34 kg/m2 2017-01-08 Blood pressure systolic 118 mmHg 2017-01-08 Blood pressure diastolic 64 mmHg 2017-01-08 MEDICATIONS Medication Instructions Dosage Frequency Start Date End Date Duration Status Multivitamin by oral route once daily Jul, Active Estradiol 0.01 % (0.1 mg/gram) 1 Prefilled Applicator by Vaginal route 3 times per week Jul, Active Diazepam 5 MG Orally 3 times a day and 1 tablet q6 hrs PRN #60 .5 tab Active levothyroxine 75 mcg 1 Tablet by Oral route 1 time per day Oct, Active Cytomel 5 mcg 1 Tablet by Oral route 1 time per day Oct, Active Lyrica 150 MG Orally Three times a day take 1 capsule 8h Nov, Active Glucophage 1,000 mg 2 Tablet by Oral route 1 time per day Oct, Active Doxepin HCl 10 mg Orally 3 times a day 1 capsule 8h Active Invokana 100 MG Orally Once a day 2 tablets 24h Active Calcium Carbonate 200 mg calcium (500 mg) 4-5 Tablet by Oral route 2 times per day PRN Jul, Active Betamethasone Dipropionate 0.05 % twice daily PRN Jul, Active Zovirax 5 % 2-3 times daily as needed Jul, Active Albuterol by inhalation route Nov, Active Cymbalta 60 mg Orally Once a day TAKE TWO CAPSULES BY MOUTH DAILY 24h Active MiraLax 17 gram 1 Powder by Oral route 1 time per day Oct, Active Triamcinolone Acetonide 0.025 % 1 Lotion by Subcutaneous route PRN Oct, Active Rexulti 2 MG Orally Once a day 1 tablet 24h Active Robaxin 500 MG Orally 3 times a day 1 tablet 8h Active Oxycodone HCl 10 MG Orally every 6 hrs 1 tablet as needed 6h Active RESULTS No Results PROCEDURES Procedure Date Ordered Result Body Site [facility] VISIT ESTABLISHED PATIENT January 08, 2017 IMMUNIZATIONS No Known Immunizations MEDICAL (GENERAL) HISTORY Type Description Date Medical History Type II diabetes Medical History HSV I Medical History Hypothyroid Medical History Pelvic Floor Muscle Tension Myalgia
--- OUTSIDE RECORDS SUMMARY | 2018-06-02 12:09 | XMS REPORT ---
Author Author NARDA PINO eClinicalWorks Address Unknown Phone Unavailable Care Team Providers Care Electronic News Gathering Camera Person Name Role Phone NARDA PINO Unavailable Allergies [...] Instructions Start Date End Date Status Dosage Robaxin [facility] [address]-84 500 MG Orally 3 times a day 1 tablet Cytomel [facility] [address]-85 5 mcg Nov 04, 2012 1 Tablet by Oral route 1 time per day levothyroxine [facility] 0 75 mcg Nov 04, 2012 1 Tablet by Oral route 1 time per day Doxepin HCl [facility] [address]-05 10 mg Orally 3 times a day April 11, 2015 1 capsule Cymbalta [facility] 31506209270 60 Orally Once a day TAKE TWO CAPSULES BY MOUTH DAILY Lyrica [facility] [address]-17 150 MG Orally Three times a day December 07, 2014 take 1 capsule MiraLax [facility] [address]-61 17 gram Nov 04, 2012 1 Powder by Oral route 1 time per day Multivitamin [facility] 34117-91150 Jul 27, 2014 by oral route once daily Invokana [facility] [address]-76 100 MG Orally Once a day 2 tablets Diazepam [facility] [address]-79 5 MG Orally 3 times a day and 1 tablet q6 hrs PRN #60 .5 tab Calcium Carbonate [facility] [address]42-18044 200 mg calcium (500 mg) Jul 27, 2014 4-5 Tablet by Oral route 2 times per day PRN Glucophage [facility] [address]-04 1,000 mg Nov 04, 2012 2 Tablet by Oral route 1 time per day Triamcinolone Acetonide [facility] [address]-88 0.025 % Nov 04, 2012 1 Lotion by Subcutaneous route PRN Oxycodone HCl [facility] [address]-99 10 MG Orally every 6 hrs 1 tablet as needed Betamethasone Dipropionate [facility] [address]-89 0.05 % Jul 27, 2014 twice daily PRN Zovirax [facility] [address]-87 5 % Jul 27, 2014 2-3 times daily as needed Rexulti [facility] [address]-83 0.5 MG Orally Once a day Jun 26, 2016 1 tablet Procedures Procedure Coding System Code Date Office Visit, Est Pt., Level 3 CPT-4 45801 Jun 26, 2016 [facility] VISIT ESTABLISHED PATIENT CPT-4 G0467 Jun 26, 2016 Vital Signs Date/Time: Jun 26, 2016 BMI 35.34 Index Weight 222.3 lbs Height 66.5 in Results No Known Results Summary Purpose eClinicalWorks Submission
--- OUTSIDE RECORDS SUMMARY | 2018-06-02 12:09 | XMS REPORT ---
Author Author RANJIT SOTO Organization [facility] Address [address] [place] [address] Care Team Providers Care Powder Blender And Pourer Name Role Phone RANJIT SOTO Unavailable PROBLEMS Type Condition ICD9-CM Code [id number] Code Onset Dates Condition Status SNOMED Code Problem Major depressive disorder, recurrent, moderate F33.1 Active 16041556 ALLERGIES No Information ENCOUNTERS Encounter Location Date Diagnosis [place] [id number] [place] [address]25- 8229 Mar, [place] [id number] [place] [address] 43578- 9634 Nov, Major depressive disorder, recurrent, moderate F33.1 [facility] [id number] [place] [address] 19061- 3528 Sep, Major depressive disorder, recurrent, moderate F33.1 [place] [id number] [place] [address] 46308- 3407 Jul, Major depressive disorder, recurrent, moderate F33.1 [place] [id number] [place] [address] 73612- 5885 Jun, [facility] [id number] [place] [address] 33676- 2215 Apr, Major depressive disorder, recurrent, moderate F33.1 [facility] [id number] [place] [address] 79423- 9341 Dec, Major depressive disorder, recurrent, moderate F33.1 [facility] [id number] [place] [address] 16293- 2284 Sep, Major depressive disorder, recurrent, moderate F33.1 [facility] [id number] [address] Jul, Major depressive disorder, recurrent, moderate F33.1 [facility] [id number] [place] [address] 23657- 8033 Jun, Major depressive disorder, recurrent, moderate F33.1 [facility] [id number] [place] [address] 01605- 7832 Jun, Major depressive disorder, recurrent, moderate F33.1 [facility] [id number] [place] [address] 01325- 0465 Apr, [facility] [address] [address]- [address] January, Posttraumatic stress disorder F43.10 [facility] [id number] [place] [address] 31377- 2548 January, [facility] [id number] [place] [address] 72945- 1849 Dec, [facility] [id number] [place] [address] 74836- 4041 Sep, 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 ; Major depressive disorder, recurrent, moderate F33.1 and 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 [facility] [id number] [place] [address] 40494- 5493 Jun, 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 and 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 [facility] [id number] [place] [address] 55258- 6632 Mar, Somatization disorder 300.81 [facility] [id number] [place] [address] 13637- 1094 Feb, [facility] [id number] [place] [address] 30755- 8853 Feb, Depression, major, recurrent, moderate 296.32 and Obsessive- compulsive personality disorder 301.4 [facility] [id number] [place] [address] 75197- 9594 14 Dec, 2014 [facility] [place] [facility] [address] [id number] [place] [address]- 6296 13 Dec, 2014 [facility] [place] [facility] [address] [id number] [place] [address]- 6186 Nov, [facility] [place] [facility] [address] [id number] [place] [address] 7887 Nov, [facility] [place] [facility] [address] [id number] [place] [address]- 1169 Oct, [facility] [place] [facility] [address] [id number] [place] [address]- 3472 Oct, [facility] [place] [facility] [address] [id number] [place] [address]- 3588 Jul, [facility] [place] [facility] [address] [facility] [id number] [place] [address]- 2763 Jul, [facility] [place] [facility] [address] [facility] [id number] [place] [address]- 1000 Jul, [facility] [place] [facility] [address] [facility] [id number] [place] [address]- 8661 Jul, [facility] [place] [facility] [address] [facility] [id number] [place] [address]- 0879 Jun, [facility] [place] [facility] [address] [id number] [place] [address]- 3219 Jun, [facility] [place] [facility] [address] [id number] [place] [address]- 0086 Nov, [facility] [place] [facility] [address] [id number] [place] [address]- 1853 Nov, [facility] [place] [facility] [address] [id number] [place] [address]- 3263 Oct, [facility] [place] [facility] [address] [facility] [id number] [place] [address] Oct, [facility] [place] [facility] [address] [id number] [place] [address]- 4736 Sep, [facility] [place] [facility] [address] [id number] [place] [address]- 0042 Sep, [facility] [place] [facility] [address] [id number] [place] [address]- 9493 Sep, [facility] [place] [facility] [address] [id number] [place] [address]- 5319 Sep, [facility] [place] [facility] [address] [id number] [place] [address]- 6369 Aug, [facility] [place] [facility] [address] [id number] [place] [address]- 9591 Aug, [facility] [place] [facility] [address] [id number] [place] [address]- 5697 Aug, [facility] [place] [facility] [address] [id number] [place] [address]- 9866 Aug, [facility] [place] [facility] [address] [id number] [place] [address]- 5491 Jun, [facility] [place] [facility] [address] [id number] [place] [address]- 5479 Jun, [facility] [place] [facility] [address] [id number] [place] [address]- 7335 Apr, [facility] [place] [facility] [address] [id number] [place] [address]- 5756 Feb, [facility] [place] [facility] [address] [id number] [place] [address]- 4676 Feb, [facility] [place] [facility] [address] [id number] [place] [address]- 0392 January, [facility] [place] [facility] [address] [id number] [place] [address]- 9838 January, [facility] [place] [facility] [address] [id number] [place] [address]- 4666 Dec, [facility] [address] [id number] [place] [address]- 7499 Nov, [facility] [place] [facility] [address] [id number] [place] [address]- 9172 Nov, [facility] [place] [facility] [address] [id number] [place] [address]- 4320 Oct, [facility] [place] [facility] [address] [id number] [place] [address]- 1985 Oct, [facility] [place] [facility] [address] [id number] [place] [address]- 6051 Oct, [facility] [place] [facility] [address] [id number] [place] [address]- 7887 Sep, [facility] [address] [id number] [place] [address]- 6432 Jun, [facility] [place] [facility] [address] [id number] [place] [address]- 0956 Jun, [facility] [place] [facility] [address] [id number] [place] [address]- 1649 Jun, [facility] [place] [facility] [address] [id number] [place] [address]- 2326 Jun, [facility] [place] [facility] [address] [id number] [place] [address]- 5793 May, [facility] [place] [facility] [address] [id number] [place] [address]- 9507 May, [facility] [place] [facility] [address] [id number] [place] [address]- 8841 Apr, [facility] [place] [facility] [address] [id number] [place] [address]- 7413 Apr, [facility] [place] [facility] [address] [id number] [place] [address]- 0571 Apr, [facility] [place] [facility] [address] [id number] [place] [address]- 6119 Mar, [facility] [place] [facility] [address] [id number] [place] [address]- 9766 Feb, [facility] [place] [facility] [address] [id number] [place] [address]- 0096 January, [facility] [place] [facility] [address] [id number] [place] [address]- 0966 January, [facility] [place] [facility] [address] [id number] [place] [address]- 0940 Dec, [facility] [place] [facility] [address] [id number] [place] [address]- 9478 Dec, [facility] [place] [facility] [address] [id number] [place] [address]- 8357 Dec, [facility] [place] [facility] [address] [id number] [place] [address]- 0188 Dec, [facility] [place] [facility] [address] [id number] [place] [address]- 2779 Nov, [facility] [place] [facility] [address] [id number] [place] [address]- 2652 Nov, [facility] [place] [facility] [address] [id number] [place] [address]- 0906 Nov, [facility] [place] [facility] [address] [id number] [place] [address]- 4553 Nov, [facility] [place] [facility] [address] [id number] [place] [address]- 7368 Oct, [facility] [place] [facility] [address] [id number] [place] [address]- 4646 Jul, [facility] [place] [facility] [address] [id number] [place] [address]- 1956 Jun, [facility] [place] [facility] [address] [id number] [place] [address]- 6736 Jun, [facility] [address] [facility] [id number] [address]- 5516 Apr, [facility] [address] [id number] [address] 2546 Feb, [facility] [id number] [address]- 2546 Aug, [facility] [id number] [place] [address]- 2546 Aug, [facility] [id number] [address]- 8596 Aug, [facility] [address] [id number], [place] [address]- 4536 Jun, IMMUNIZATIONS No Known Immunizations SOCIAL HISTORY Never Assessed REASON FOR VISIT intake PLAN OF CARE Activity Details Follow Up prn Reason: VITAL SIGNS MEDICATIONS Unknown Medications RESULTS No Results PROCEDURES Procedure Date Ordered Result Body Site [facility] VISIT MENTAL HEALTH ESTAB PT Aug 18, 2017 Psychotherapy, patient &/family, 30 minutes, established patient Aug 18, 2017 INSTRUCTIONS MEDICATIONS ADMINISTERED No Known Medications MEDICAL (GENERAL) HISTORY Type Description Date Medical History Type II diabetes Medical History HSV I Medical History Hypothyroid Medical History Pelvic Floor Muscle Tension Myalgia
--- OUTSIDE RECORDS SUMMARY | 2018-06-02 12:09 | XMS REPORT ---
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 92504146 ALLERGIES Unknown Allergies SOCIAL HISTORY No smoking Hx information available PLAN OF CARE Activity Details Follow Up 3 Months Reason: VITAL SIGNS Height 66.5 in 2016-10-09 Weight 219 lbs 2016-10-09 Heart Rate 80 bpm 2016-10-09 Respiratory Rate 20 2016-10-09 BMI 34.81 kg/m2 2016-10-09 Blood pressure systolic 120 mmHg 2016-10-09 Blood pressure diastolic 62 mmHg 2016-10-09 MEDICATIONS Medication Instructions Dosage Frequency Start Date End Date Duration Status Doxepin HCl 10 mg Orally 3 times a day 1 capsule 8h Active Glucophage 1,000 mg 2 Tablet by Oral route 1 time per day Oct, Active Betamethasone Dipropionate 0.05 % twice daily PRN Jul, Active MiraLax 17 gram 1 Powder by Oral route 1 time per day Oct, Active levothyroxine 75 mcg 1 Tablet by Oral route 1 time per day Oct, Active Zovirax 5 % 2-3 times daily as needed Jul, Active Estradiol 0.01 % (0.1 mg/gram) 1 Prefilled Applicator by Vaginal route 3 times per week Jul, Active Oxycodone HCl 10 MG Orally every 6 hrs 1 tablet as needed 6h Active Diazepam 5 MG Orally 3 times a day and 1 tablet q6 hrs PRN #60 .5 tab Active Cytomel 5 mcg 1 Tablet by Oral route 1 time per day Oct, Active Multivitamin by oral route once daily Jul, Active Triamcinolone Acetonide 0.025 % 1 Lotion by Subcutaneous route PRN Oct, Active Robaxin 500 MG Orally 3 times a day 1 tablet 8h Active Calcium Carbonate 200 mg calcium (500 mg) 4-5 Tablet by Oral route 2 times per day PRN Jul, Active Rexulti 2 MG Orally Once a day 1 tablet 24h Active Cymbalta 60 Orally Once a day TAKE TWO CAPSULES BY MOUTH DAILY 24h Active Invokana 100 MG Orally Once a day 2 tablets 24h Active Albuterol by inhalation route Nov, Active Lyrica 150 MG Orally Three times a day take 1 capsule 8h Nov, Active RESULTS No Results PROCEDURES Procedure Date Ordered Related Diagnosis Body Site [facility] VISIT ESTABLISHED PATIENT Oct 09, 2016 Office Visit, Est Pt., Level 2 Oct 09, 2016 IMMUNIZATIONS No Known Immunizations
--- OUTSIDE RECORDS SUMMARY | 2018-06-02 12:09 | XMS REPORT ---
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
--- OUTSIDE RECORDS SUMMARY | 2018-06-02 12:09 | XMS REPORT ---
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 [address]-92 60 MG December 07, 2014 take 2 capsule by Oral route 1 time per day Omeprazole [facility] [address]-03 20 mg March 03, 2013 1 Capsule by Oral route 1 time per day Glucophage [facility] [address]-49 1,000 mg Nov 04, 2012 2 Tablet by Oral route 1 time per day Estradiol [facility] [address]-39 0.01 % (0.1 mg/gram) Jul 27, 2014 1 Prefilled Applicator by Vaginal route 3 times per week Diazepam [facility] [address]-43 5 MG Orally 3 times a day and 1 tablet q6 hrs PRN #60 .5 tab Calcium Carbonate [facility] [address]317 200 mg calcium (500 mg) Jul 27, 2014 4-5 Tablet by Oral route 2 times per day PRN Doxepin HCl [facility] [address]-50 10 MG Orally 3 times a day April 11, [address] [facility] [address]-44 17 gram Nov 04, 2012 1 Powder by Oral route 1 time per day Hydrocodone-Acetaminophen [facility] [address]-72 7.5-325 MG Orally every 6 hrs 1 tablet as needed Triamcinolone Acetonide [facility] [address]-88 0.025 % Nov 04, 2012 1 Lotion by Subcutaneous route PRN Betamethasone Dipropionate [facility] [address]-39 0.05 % Jul 27, 2014 twice daily PRN metformin [facility] [address]-12 1,000 mg Jul 27, 2014 1 Tablet by Oral route 2 times per day levothyroxine [facility] 0 75 mcg Nov 04, 2012 1 Tablet by Oral route 1 time per day Multivitamin [facility] [address]308 Jul 27, 2014 by oral route once daily Lyrica [facility] [address]-35 150 MG Orally Three times a day December 07, 2014 take [address] [facility] [address]-94 December 12, 2013 by inhalation route Robaxin [facility] [address]-48 500 MG Orally 3 times a day [address] [facility] [address]-32 5 mcg Nov 04, 2012 1 Tablet by Oral route 1 time per day Zovirax [facility] [address]-77 5 % Jul 27, 2014 2-3 times daily as needed Procedures Procedure Coding System Code Date Office Visit, Est Pt., Level 3 CPT-4 08218 Jul 11, 2015 [facility] VISIT ESTABLISHED PATIENT CPT-4 G0467 Jul 11, 2015 Vital Signs Date/Time: Jul 11, 2015 Cardiac Monitoring Heart Rate 88 bpm Weight 202.6 lbs Height 66.5 in BMI 32.21 Index Blood Pressure Diastolic 70 mmHg Blood Pressure Systolic 114 mmHg Results No Known Results Summary Purpose eClinicalWorks Submission
--- OUTSIDE RECORDS SUMMARY | 2018-06-02 12:09 | XMS REPORT ---
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 Assessment Major depressive disorder, recurrent, moderate F33.1 Active Assessment 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 Active Problem Posttraumatic stress disorder 309.81 Active Assessment 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 Medications Medication Code System Code Instructions Start Date End Date Status Dosage MiraLax [facility] [address]-46 17 gram Nov 04, 2012 1 Powder by Oral route 1 time per day levothyroxine [facility] 0 75 mcg Nov 04, 2012 1 Tablet by Oral route 1 time per day Doxepin HCl [facility] [address]-94 10 MG Orally 3 times a day April 11, 2015 1 capsule Zovirax [facility] [address]-85 5 % Jul 27, 2014 2-3 times daily as needed Glucophage [facility] [address]-68 1,000 mg Nov 04, 2012 2 Tablet by Oral route 1 time per day Cymbalta [facility] [address]-50 60 MG December 07, 2014 take 2 capsule by Oral route 1 time per day Cytomel [facility] [address]-72 5 mcg Nov 04, 2012 1 Tablet by Oral route 1 time per day Diazepam [facility] [address]-48 5 MG Orally 3 times a day and 1 tablet q6 hrs PRN #60 .5 tab Lyrica [facility] [address]-08 150 MG Orally Three times a day December 07, 2014 take 1 capsule Multivitamin [facility] [address]37 Jul 27, 2014 by oral route once daily Robaxin [facility] [address]-84 500 MG Orally 3 times a day 1 tablet Betamethasone Dipropionate [facility] [place] [address]-17 0.05 % Jul 27, 2014 twice daily PRN Hydrocodone-Acetaminophen [facility] [place] [address]-14 7.5-325 MG Orally every 6 hrs 1 tablet as needed Triamcinolone Acetonide [facility] [place] [address]-46 0.025 % Nov 04, 2012 1 Lotion by Subcutaneous route PRN Calcium Carbonate [facility] [place] [address] 200 mg calcium (500 mg) Jul 27, 2014 4-5 Tablet by Oral route 2 times per day PRN Procedures Procedure Coding System Code Date Office Visit, Est Pt., Level 4 CPT-4 16023 Oct 11, 2015 [facility] VISIT ESTABLISHED PATIENT CPT-4 G0467 Oct 11, 2015 Vital Signs Date/Time: Oct 11, 2015 Blood Pressure Systolic 124 mmHg Weight 214.6 lbs Height 66.5 in BMI 34.11 Index Blood Pressure Diastolic 68 mmHg Results No Known Results Summary Purpose eClinicalWorks Submission
[2018-06-02] MEDS ORDERED: PREG150C PO (12:10)
[2018-06-02] MEDS ORDERED: PANT40TA2 PO (12:10)
[2018-06-02] MEDS ORDERED: POLY17PO6 PO (12:10)
[2018-06-02] MEDS ORDERED: ACYC5CRE2 TP (12:10)
[2018-06-02] MEDS ORDERED: CANA100T PO (12:10)
[2018-06-02] MEDS ORDERED: BETA15CR3 TP (12:10)
[2018-06-02] MEDS ORDERED: TR025C15 TP (12:10)
[2018-06-02] MEDS ORDERED: METH750T3 PO (12:10)
[2018-06-02] MEDS ORDERED: DOXE10CA29 PO (12:10)
[2018-06-02] MEDS ORDERED: METF-397 PO (12:10)
[2018-06-02] MEDS ORDERED: MULT-1029 PO (12:10)
[2018-06-02] MEDS ORDERED: BREX0.5T PO (12:10)
[2018-06-02] MEDS ORDERED: DOCU-143 PO (12:10)
[2018-06-02] MEDS ORDERED: DULO60CA58 PO (12:10)
[2018-06-02] MEDS ORDERED: RIVA1PAT TD (12:10)
[2018-06-02] MEDS ORDERED: LEVO75TA6 PO (12:10)
[2018-06-02] MEDS ORDERED: ATOR10TA PO (12:10)
[2018-06-02] MEDS ORDERED: OXYC10TA7 PO (12:10)
[2018-06-02] MEDS ORDERED: BENZ0.5T42 PO (12:10)
[2018-06-02] MEDS ORDERED: MELA3TAB PO (12:10)
--- OUTSIDE RECORDS SUMMARY | 2018-06-02 12:10 | XMS REPORT ---
Author Author NARDA PINO [facility] Address [address] [place] [address] Care Team Providers Care Newspaper Clipper Name Role Phone ODETTE, DAWADRIANNE Unavailable PROBLEMS Type Condition ICD9-CM Code RGL69-ZD Code Onset Dates Condition Status SNOMED Code Problem Major depressive disorder, recurrent, moderate F33.1 Active [id number] ALLERGIES No Information ENCOUNTERS Encounter Location Date Diagnosis [place] [id number] [place] [address]24- 1858 January, [place] [id number] [place] [address] 83048- 2031 Nov, Major depressive disorder, recurrent, moderate F33.1 [place] [id number] [place] [address] 64797- 7405 Sep, Major depressive disorder, recurrent, moderate F33.1 [place] [id number] [place] [address] 56444- 1350 Jul, Major depressive disorder, recurrent, moderate F33.1 [place] [id number] [place] [address] 34893- 7684 Jun, [facility] [id number] [place] [address] 80530- 8082 Apr, Major depressive disorder, recurrent, moderate F33.1 [place] [id number] [place] [address] 81330- 4781 Dec, Major depressive disorder, recurrent, moderate F33.1 [place] [id number] [place] [address] 19309- 3674 Sep, Major depressive disorder, recurrent, moderate F33.1 [place] [address] [address] Jul, Major depressive disorder, recurrent, moderate F33.1 [facility] [id number] [place] [address] 37487- 7947 Jun, Major depressive disorder, recurrent, moderate F33.1 [facility] [id number] [place] [address] 59462- 5543 Jun, Major depressive disorder, recurrent, moderate F33.1 [facility] [id number] [place] [address] 19072- 2716 Apr, [facility] [id number] [place] [address] 11414- 3791 January, Posttraumatic stress disorder F43.10 [facility] [id number] [place] [address] 07282- 3924 January, [facility] [id number] [place] [address] 79835- 6848 Dec, [facility] [id number] [place] [address] 19628- 0365 Sep, 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 ; Major depressive disorder, recurrent, moderate F33.1 and 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 [facility] [id number] [place] [address] 21702- 2881 Jun, 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 and 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 [facility] [id number] [place] [address] 85443- 0730 Mar, Somatization disorder 300.81 [facility] [id number] [place] [address] 21828- 8832 Feb, [facility] [id number] [place] [address] 63983- 9257 Feb, Depression, major, recurrent, moderate 296.32 and Obsessive- compulsive personality disorder 301.4 [facility] [id number] [place] [address] [place] [address]- 5532 14 Dec, 2014 [facility] [place] [facility] [address] [id number] [place] [address]- 4073 13 Dec, 2014 [facility] [place] [facility] [address] [id number] [place] [address]- 7597 Nov, [facility] [place] [facility] [address] [id number] [place] [address]- 3468 Nov, [facility] [place] [facility] [address] [id number] [place] [address]- 8561 Oct, [facility] [place] [facility] [address] [id number] [place] [address]- 0140 Oct, [facility] [place] [facility] [address] [id number] [place] [address]- 3041 Jul, [facility] [place] [facility] [address] [id number] [place] [address]- 6966 Jul, [facility] [place] [facility] [address] [id number] [place] [address]- 4867 Jul, [facility] [place] [facility] [address] [id number] [place] [address]- 1039 Jul, [facility] [place] [facility] [address] [id number] [place] [address]- 3378 Jun, [facility] [place] [facility] [address] [id number] [place] [address]- 7328 Jun, [facility] [place] [facility] [address] [id number] [place] [address]- 3141 Nov, [facility] [place] [facility] [address] [id number] [place] [address]- 6057 Nov, [facility] [place] [facility] [address] [id number] [place] [address]- 9445 Oct, [facility] [place] [facility] [address] [id number] [place] 4953 Oct, [facility] [place] [facility] [address] [id number] [place] [address]- 7170 Sep, [facility] [address] [id number] [place] [address]- 8347 Sep, [facility] [address] [id number] [place] [address]- 8999 Sep, [facility] [address] [id number] [place] [address]- 8157 Sep, [facility] [address] [id number] [place] [address]- 3535 Aug, [facility] [address] [id number] [place] [address]- 1099 Aug, [facility] [address] [id number] [place] [address]- 8280 Aug, [facility] [address] [id number] [place] [address]- 5529 Aug, [facility] [address] [id number] [place] [address]- 1855 Jun, [facility] [address] [id number] [place] [address]- 2677 Jun, [facility] [address] [id number] [place] [address]- 7539 Apr, [facility] [address] [id number], [place] [address]- 8156 Feb, [facility] [place] [facility] [address] [id number] [place] [address]- 3295 Feb, [facility] [place] [facility] [address] [id number] [place] [address]- 1338 January, [facility] [place] [facility] [address] [id number] [place] [address]- 4773 January, [facility] [place] [facility] [address] [id number] [address]- 2432 Dec, [facility] [address] [id number] [place] [address]- 0260 Nov, [facility] [place] [facility] [address] [id number] [place] 3026 Nov, [facility] [place] [facility] [address] [id number] [place] [address]- 2301 Oct, [facility] [place] [facility] [address] [id number] [place] [address]- 4114 Oct, [facility] [place] [facility] [address] [id number] [place] [address]- 7917 Oct, [facility] [place] [facility] [address] [id number] [place] [address]- 9319 Sep, [facility] [address] [id number] [place] [address]- 1989 Jun, [facility] [place] [facility] [address] [id number] [place] [address]- 4376 Jun, [facility] [place] [facility] [address] [id number] [place] [address]- 1360 Jun, [facility] [place] [facility] [address] [id number] [place] [address]- 0606 Jun, [facility] [place] [facility] [address] [id number] [place] [address]- 4450 May, [facility] [place] [facility] [address] [id number], [place] [address]- 2444 May, [facility] [place] [facility] [address] [id number] [place] [address]- 0066 Apr, [facility] [place] [facility] [address] [id number] [place] [address]- 6977 Apr, [facility] [place] [facility] [address] [id number] [place] [address]- 5303 Apr, [facility] [place] [facility] [address] [id number] [place] [address]- 6113 Mar, [facility] [place] [facility] [address] [id number] [place] [address]- 6643 Feb, [facility] [place] [facility] [address] [id number] [place] [address]- 5896 January, [facility] [place] [facility] [address] [id number] [place] [address]- 1449 January, [facility] [place] [facility] [address] [id number] [place] [address]- 0847 Dec, [facility] [place] [facility] [address] [id number] [place] [address]- 1751 Dec, [facility] [place] [facility] [address] [id number] [place] [address]- 4390 Dec, [facility] [place] [facility] [address] [id number] [place] [address]- 4124 Dec, [facility] [place] [facility] [address] [id number] [place] [address]- 8047 Nov, [facility] [place] [facility] [address] [id number] [place] [address]- 0935 Nov, [facility] [place] [facility] [address] [id number] [place] [address]- 7374 Nov, [facility] [place] [facility] [address] [id number] [place] [address]- 4497 05 Nov, 2011 [facility] [place] [facility] [address] [id number] [place] [address]- 8606 Oct, [facility] [place] [facility] [address] [id number] [place] [address]- 4815 Jul, [facility] [place] [facility] [address] [id number] [place] [address]- 8396 Jun, [facility] [place] [facility] [address] [id number] [place] [address]- 1384 Jun, [facility] [address] [facility] [id number], [place] [address]- 9395 Apr, [facility] [address], [place] [address]- 4746 Feb, [facility] [id number] [address]- 2808 Aug, [facility] [address], [place] [address]- 1798 Aug, [facility] [id number] [address]- 0159 Aug, [facility] [id number] [address]- 2810 Jun, IMMUNIZATIONS No Known Immunizations SOCIAL HISTORY Never Assessed REASON FOR VISIT Requests return call PLAN OF CARE VITAL SIGNS MEDICATIONS Unknown Medications RESULTS No Results PROCEDURES No Known procedures INSTRUCTIONS MEDICATIONS ADMINISTERED No Known Medications MEDICAL (GENERAL) HISTORY Type Description Date Medical History Type II diabetes Medical History HSV I Medical History Hypothyroid Medical History Pelvic Floor Muscle Tension Myalgia
--- OUTSIDE RECORDS SUMMARY | 2018-06-02 12:11 | XMS REPORT | Continuity of Care Document ---
Author Author [facility] Address Unknown Phone Unavailable Allergies Active Description Code Type Severity Reaction Onset Reported/Identified Relationship to Patient Clinical Status Yes GENTIAN UNKNOWN UNKNOWN Yes Gentian Tonya [id number] Drug Allergy Unknown N/A 06/20/2006 Yes gentian tonya Drug Allergy N /A N/A 12/07/2014 Medications Medication Packaging Start Date Stop Date Route Dosage Sig PREGABALIN CAP 75 MG (LYRICA) MG 07/27/2017 ONCE&2236 BENZTROPINE TAB 1 MG (COGENTIN) MG 07/27/2017 07/27/2017 ONCE&2241 OXYCODONE SUSTAINED RELEASE TAB 10 MG (OXYCONTIN) MG 07/27/2017 07/27/2017 ONCE&2241 MELATONIN TAB 3 MG (MELATONIN) MG 07/27/2017 07/27/2017 ONCE&2241 SIMVASTATIN TAB 10 MG (ZOCOR) MG 07/27/2017 ONCE&2257 ACETAMINOPHEN ORAL TABLET 325mg(Tylenol) MG 07/27/2017 08/06/2017 PRN EVERY 6 Hour POLYETHYLENE GLYCOL POWDER UD PWD (MIRALAX 17GM UNIT DOSE PAKS) gm 07/27/2017 08/06/2017 PRN Q3H ALUM/MAG/SIMETH 30CC LIQ (MYLANTA PLUS) cc 07/28/2017 08/27/2017 PRN Q4H LORAZEPAM TAB 1 MG (ATIVAN) MG 04/201708/27/2017 PRN Q6H CALMOSEPTINE OINT TUBE (RISAMINE OINT) tashi 07/28/2017 08/27/2017 PRN QID LOPERAMIDE CAP 2 MG (IMMODIUM) MG 07/28/2017 08/27/2017 PRN QID DOXEPIN CAP 10 MG (SINEQUAN) MG 04/201708/26/2017 TID&0800,1400,2000 LACTULOSE SYRUP LIQ 20 GM/30CC (CHRONULAC SYRUP) GM 07/28/2017 08/26/2017 BID&0800,2000 TRIAMCINOLONE CRM CRM 0.1 % (ARISTOCORT CRM) tashi 07/28/2017 08/07/2017 PRN TID OXYCODONE IR TAB 5 MG (OXY IR (IMMEDIATE RELEASE)) MG 07/28/2017 08/04/2017 PRN Q4H ACYCLOVIR CR 5%--COLD SORES CR 5 % (ZOVIRAX CR 5% (MOUTH T LIPS) tashi 07/28/2017 08/27/2017 PRN TID MILK OF BRITTANY LIQ ml 07/28/2017 08/04/2017 PRN BID PREGABALIN CAP 75 MG (LYRICA) MG 08/26/2017 TID&0800,1400,2000 PANTOPRAZOLE TAB 40 MG (PROTONIX) MG 07/28/2017 08/26/2017 Daily&0900 BENZTROPINE TAB 1 MG (COGENTIN) MG 07/28/2017 08/27/2017 PRN Daily Docusate sodium 100mg oral capsule (COLACE) MG 07/28/2017 08/06/2017 Daily&0900 Aripiprazole oral tablet 5mg (Abilify) MG 07/28/2017 08/26/2017 Daily&0900 DULOXETINE CAP 30 MG (CYMBALTA) MG 07/28/2017 08/26/2017 Daily&0900 TRIAMCINOLONE CRM CRM 0.1 % (ARISTOCORT CRM) tashi 07/28/2017 08/26/2017 Daily&0900 LIOTHYRONINE TAB 25 MCG (CYTOMEL) MCG 07/28/2017 08/26/2017 Daily&0900 MultiVits (Thera M Plus) (vngnektt-ilkn-dtolpsx) oral tablet TAB 07/28/2017 08/26/2017 Daily&0900 BISACODYL SUPPOS SUP 10 MG (DULCOLAX SUPPOS) MG 07/28/2017 08/27/2017 PRN Daily LEVOTHYROXINE TAB 100 MCG (SYNTHROID) MCG 07/28/2017 08/26/2017 Daily&0900 LEVOTHYROXINE TAB 75 MCG (SYNTHROID) MCG 07/28/2017 08/26/2017 Daily&0900 Fluarix QUAD 0229-5630 (PF) (flu vac 36mos up(PF)Adult IM syringe ML 07/28/2017 07/28/2017 ONCE&1000 SIMVASTATIN TAB 10 MG (ZOCOR) MG 08/26/2017 QHS&2100 MELATONIN TAB 3 MG (MELATONIN) MG 07/28/2017 08/03/2017 QHS&2100 TRAZODONE TAB 50 MG (DESYREL) MG 08/27/2017 PRN QHS POLYETHYLENE GLYCOL POWDER UD PWD (MIRALAX 17GM UNIT DOSE PAKS) gm 07/28/2017 08/26/2017 QHS&2100 TRIAMCINOLONE CRM CRM 0.1 % (ARISTOCORT CRM) tashi 07/30/2017 08/09/2017 PRN Daily DOXEPIN CAP 10 MG (SINEQUAN) MG 06/201708/29/2017 BID&0800,2000 MELATONIN TAB 3 MG (MELATONIN) MG 08/02/2017 08/31/2017 QHS&2100 TRAZODONE TAB 50 MG (DESYREL) MG 09/01/2017 QHS&2100 Rivastigmine TD Patch 24 hour 4.6mg (EXELON) MG 08/05/2017 08/14/2017 Daily&0900 Problems Date Dx Coded Attending Type Code Diagnosis Diagnosed By 03/28/2008 296.30 MAJOR DEPRESSIVE AFFECTIVE DISORDER RECURRENT EPISODE UNSPECIFIED DEGREE 03/28/2008 GRACE JONES DO 296.30 MAJOR DEPRESSIVE AFFECTIVE DISORDER RECURRENT EPISODE UNSPECIFIED DEGREE 03/28/2008 BANDAR ANDERSON PSYD 296.30 MAJOR DEPRESSIVE AFFECTIVE DISORDER RECURRENT EPISODE UNSPECIFIED DEGREE 03/28/2008 296.30 MAJOR DEPRESSIVE AFFECTIVE DISORDER RECURRENT EPISODE UNSPECIFIED DEGREE 03/28/2008 GRACE JONES DO 296.30 MAJOR DEPRESSIVE AFFECTIVE DISORDER RECURRENT EPISODE UNSPECIFIED DEGREE 03/28/2008 PJ PALOMARES MD 296.30 MAJOR DEPRESSIVE AFFECTIVE DISORDER RECURRENT EPISODE UNSPECIFIED DEGREE 03/28/2008 CARMEN YU APRN 296.30 MAJOR DEPRESSIVE AFFECTIVE DISORDER RECURRENT EPISODE UNSPECIFIED DEGREE 03/28/2008 CARMEN YU APRN 296.30 MAJOR DEPRESSIVE AFFECTIVE DISORDER RECURRENT EPISODE UNSPECIFIED DEGREE 03/28/2008 CHARLES PHD, RANJIT Holland 296.30 MAJOR DEPRESSIVE AFFECTIVE DISORDER RECURRENT EPISODE UNSPECIFIED DEGREE 03/28/2008 CARMEN YU APRN 296.30 MAJOR DEPRESSIVE AFFECTIVE DISORDER RECURRENT EPISODE UNSPECIFIED DEGREE 03/29/2008 296.32 MAJOR DEPRESSIVE AFFECTIVE DISORDER RECURRENT EPISODE MODERATE DEGREE 03/29/2008 296.90 MOOD DISORDER 03/29/2008 780.79 MALAISE AND FATIGUE 03/29/2008 GRACE JONES DO F 296.32 MAJOR DEPRESSIVE AFFECTIVE DISORDER RECURRENT EPISODE MODERATE DEGREE 03/29/2008 ROBERT REEDER GRACE F 296.90 MOOD DISORDER 03/29/2008 ANTONIO JONES DOEN F 780.79 MALAISE AND FATIGUE 03/29/2008 BANDAR ANDERSON PSYD ANN L 296.32 MAJOR DEPRESSIVE AFFECTIVE DISORDER RECURRENT EPISODE MODERATE DEGREE 03/29/2008 MONICA CROW YOLANDA L 296.90 MOOD DISORDER 03/29/2008 BANDAR ANDERSON PSYD ANN L 780.79 MALAISE AND FATIGUE 03/29/2008 296.32 MAJOR DEPRESSIVE AFFECTIVE DISORDER RECURRENT EPISODE MODERATE DEGREE 03/29/2008 296.90 MOOD DISORDER 03/29/2008 780.79 MALAISE AND FATIGUE 03/29/2008 GRACE JONES DO F 296.32 MAJOR DEPRESSIVE AFFECTIVE DISORDER RECURRENT EPISODE MODERATE DEGREE 03/29/2008 GRACE JONES DO F 296.90 MOOD DISORDER 03/29/2008 GRACE JONES DO F 780.79 MALAISE AND FATIGUE 03/29/2008 PJ PALOMARES MD 296.32 MAJOR DEPRESSIVE AFFECTIVE DISORDER RECURRENT EPISODE MODERATE DEGREE 03/29/2008 PJ PALOMARES MD 296.90 MOOD DISORDER 03/29/2008 PJ PALOMARES MD 780.79 MALAISE AND FATIGUE 03/29/2008 AIMEE INSPECTOR OPTICAL INSTRUMENT, CARMEN 296.32 MAJOR DEPRESSIVE AFFECTIVE DISORDER RECURRENT EPISODE MODERATE DEGREE 03/29/2008 AIMEE INSPECTOR OPTICAL INSTRUMENT, CARMEN 296.90 MOOD DISORDER 03/29/2008 AIMEE INSPECTOR OPTICAL INSTRUMENT, CARMEN 780.79 MALAISE AND FATIGUE 03/29/2008 AIMEE INSPECTOR OPTICAL INSTRUMENT, CARMEN 296.32 MAJOR DEPRESSIVE AFFECTIVE DISORDER RECURRENT EPISODE MODERATE DEGREE 03/29/2008 AIMEE INSPECTOR OPTICAL INSTRUMENT, CARMEN 296.90 MOOD DISORDER 03/29/2008 AIMEE INSPECTOR OPTICAL INSTRUMENT, CARMEN 780.79 MALAISE AND FATIGUE 03/29/2008 CHARLES CORRALES, RANJIT Holland 296.32 MAJOR DEPRESSIVE AFFECTIVE DISORDER RECURRENT EPISODE MODERATE DEGREE 03/29/2008 CHARLES CORRALES, RANJIT Holland 296.90 MOOD DISORDER 03/29/2008 RANJIT SOTO PHD 780.79 MALAISE AND FATIGUE 03/29/2008 AIMEE ROMAN CARMEN 296.32 MAJOR DEPRESSIVE AFFECTIVE DISORDER RECURRENT EPISODE MODERATE DEGREE 03/29/2008 CARMEN YU APRN 296.90 MOOD DISORDER 03/29/2008 CARMEN YU APRN 780.79 MALAISE AND FATIGUE 05/03/2008 300.82 So Somatoform Nos 05/03/2008 GRACE JONES DO 300.82 So Somatoform Nos 05/03/2008 BANDAR ANDERSON PSYD 300.82 So Somatoform Nos 05/03/2008 300.82 So Somatoform Nos 05/03/2008 GRACE JONES DO 300.82 So Somatoform Nos 05/03/2008 PJ PALOMARES MD 300.82 So Somatoform Nos 05/03/2008 CARMEN YU APRN 300.82 So Somatoform Nos 05/03/2008 AIMEE ROMAN CARMEN 300.82 So Somatoform Nos 05/03/2008 RANJIT SOTO PHD 300.82 So Somatoform Nos 05/03/2008 AIMEE ROMAN CARMEN 300.82 So Somatoform Nos 06/21/2008 316 PF PSYCHIC FACTORS MED COND 06/21/2008 GRACE JONES DO 316 PF PSYCHIC FACTORS MED COND 06/21/2008 BANDAR ANDERSON PSYD 316 PF PSYCHIC FACTORS MED COND 06/21/2008 316 PF PSYCHIC FACTORS MED COND 06/21/2008 GRACE JONES DO 316 PF PSYCHIC FACTORS MED COND 06/21/2008 PJ PALOMARES MD 316 PF PSYCHIC FACTORS MED COND 06/21/2008 CARMEN YU APRN 316 PF PSYCHIC FACTORS MED COND 06/21/2008 CARMEN YU APRN 316 PF PSYCHIC FACTORS MED COND 06/21/2008 RANJIT SOTO PHD 316 PF PSYCHIC FACTORS MED COND 06/21/2008 CARMEN YU APRN 316 PF PSYCHIC FACTORS MED COND 07/26/2008 304.00 SA OPIOID DEPENDENCE 07/26/2008 GRACE JONES DO 304.00 SA OPIOID DEPENDENCE 07/26/2008 BANDAR ANDERSON PSYD 304.00 SA OPIOID DEPENDENCE 07/26/2008 304.00 SA OPIOID DEPENDENCE 07/26/2008 GRACE JONES DO 304.00 SA OPIOID DEPENDENCE 07/26/2008 PJ PALOMARES MD 304.00 SA OPIOID DEPENDENCE 07/26/2008 AIMEE INSPECTOR OPTICAL INSTRUMENT, CARMEN 304.00 SA OPIOID DEPENDENCE 07/26/2008 AIMEE INSPECTOR OPTICAL INSTRUMENT, CARMEN 304.00 SA OPIOID DEPENDENCE 07/26/2008 CHARLES CORRALES, RANJIT Holland 304.00 SA OPIOID DEPENDENCE 07/26/2008 AIMEE INSPECTOR OPTICAL INSTRUMENT, CARMEN 304.00 SA OPIOID DEPENDENCE 11/08/2008 296.31 MAJOR DEPRESSIVE AFFECTIVE DISORDER RECURRENT EPISODE MILD DEGREE 11/08/2008 GRACE JONES DO 296.31 MAJOR DEPRESSIVE AFFECTIVE DISORDER RECURRENT EPISODE MILD DEGREE 11/08/2008 BANDAR ANDERSON PSYD 296.31 MAJOR DEPRESSIVE AFFECTIVE DISORDER RECURRENT EPISODE MILD DEGREE 11/08/2008 296.31 MAJOR DEPRESSIVE AFFECTIVE DISORDER RECURRENT EPISODE MILD DEGREE 11/08/2008 GRACE JONES DO 296.31 MAJOR DEPRESSIVE AFFECTIVE DISORDER RECURRENT EPISODE MILD DEGREE 11/08/2008 PJ PALOMARES MD 296.31 MAJOR DEPRESSIVE AFFECTIVE DISORDER RECURRENT EPISODE MILD DEGREE 11/08/2008 AIMEE INSPECTOR OPTICAL INSTRUMENT, CARMEN 296.31 MAJOR DEPRESSIVE AFFECTIVE DISORDER RECURRENT EPISODE MILD DEGREE 11/08/2008 AIMEE INSPECTOR OPTICAL INSTRUMENT, CARMEN 296.31 MAJOR DEPRESSIVE AFFECTIVE DISORDER RECURRENT EPISODE MILD DEGREE 11/08/2008 CHARLES CORRALES, RANJIT Holland 296.31 MAJOR DEPRESSIVE AFFECTIVE DISORDER RECURRENT EPISODE MILD DEGREE 11/08/2008 AIMEE INSPECTOR OPTICAL INSTRUMENT, CARMEN 296.31 MAJOR DEPRESSIVE AFFECTIVE DISORDER RECURRENT EPISODE MILD DEGREE 06/05/2009 300.02 AN GEN ANXIETY 06/05/2009 GRACE JONES DO 300.02 AN GEN ANXIETY 06/05/2009 BANDAR ANDERSON PSYD 300.02 AN GEN ANXIETY 06/05/2009 300.02 AN GEN ANXIETY 06/05/2009 GRACE JONES DO 300.02 AN GEN ANXIETY 06/05/2009 PJ PALOMARES MD 300.02 AN GEN ANXIETY 06/05/2009 AIMEE INSPECTOR OPTICAL INSTRUMENT, CARMEN 300.02 AN GEN ANXIETY 06/05/2009 AIMEE INSPECTOR OPTICAL INSTRUMENT, CARMEN 300.02 AN GEN ANXIETY 06/05/2009 CHARLES CORRALES, RANJIT Holland 300.02 AN GEN ANXIETY 06/05/2009 AIMEE INSPECTOR OPTICAL INSTRUMENT, CARMEN 300.02 AN GEN ANXIETY 06/12/2009 Ot 723.1 06/12/2009 Ot 784.0 06/12/2009 Ot V57.1 06/14/2009 301.4 Pd Obsessive- compulsive 06/14/2009 GRACE JONES DO 301.4 Pd Obsessive-compulsive 06/14/2009 BANDAR ANDERSON PSYD 301.4 Pd Obsessive-compulsive 06/14/2009 301.4 Pd Obsessive- compulsive 06/14/2009 GRACE JONES DO 301.4 Pd Obsessive-compulsive 06/14/2009 PJ PALOMARES MD 301.4 Pd Obsessive-compulsive 06/14/2009 AIMEE INSPECTOR OPTICAL INSTRUMENT, CARMEN 301.4 Pd Obsessive-compulsive 06/14/2009 AIMEE INSPECTOR OPTICAL INSTRUMENT, CARMEN 301.4 Pd Obsessive-compulsive 06/14/2009 CHARLES PHD, RANJIT Holland 301.4 Pd Obsessive-compulsive 06/14/2009 AIMEE INSPECTOR OPTICAL INSTRUMENT, CARMEN 301.4 Pd Obsessive-compulsive 10/10/2009 300.00 AN ANXIETY UNSPEC 10/10/2009 GRACE JONES DO 300.00 AN ANXIETY UNSPEC 10/10/2009 BANDAR ANDERSON PSYD 300.00 AN ANXIETY UNSPEC 10/10/2009 300.00 AN ANXIETY UNSPEC 10/10/2009 GRACE JONES DO 300.00 AN ANXIETY UNSPEC 10/10/2009 PJ PALOMARES MD 300.00 AN ANXIETY UNSPEC 10/10/2009 CARMEN YU APRN 300.00 AN ANXIETY UNSPEC 10/10/2009 AIMEE ABEL CARMEN 300.00 AN ANXIETY UNSPEC 10/10/2009 CHARLES CORRALES, RANJIT Holland 300.00 AN ANXIETY UNSPEC 10/10/2009 AIMEE ABEL CARMEN 300.00 AN ANXIETY UNSPEC 02/21/2010 Ot 719.41 02/21/2010 Ot 723.1 02/21/2010 Ot V57.1 02/27/2010 300.3 AN OBCESS COMP DIS 02/27/2010 GRACE JONES DO 300.3 AN OBCESS COMP DIS 02/27/2010 BANDAR ANDERSON PSYD 300.3 AN OBCESS COMP DIS 02/27/2010 300.3 AN OBCESS COMP DIS 02/27/2010 GRACE JONES DO 300.3 AN OBCESS COMP DIS 02/27/2010 PJ PALOMARES MD 300.3 AN OBCESS COMP DIS 02/27/2010 AIMEE INSPECTOR OPTICAL INSTRUMENT, CARMEN 300.3 AN OBCESS COMP DIS 02/27/2010 AIMEE INSPECTOR OPTICAL INSTRUMENT, CARMEN 300.3 AN OBCESS COMP DIS 02/27/2010 RANJIT SOTO PHD 300.3 AN OBCESS COMP DIS 02/27/2010 AIMEE INSPECTOR OPTICAL INSTRUMENT, CARMEN 300.3 AN OBCESS COMP DIS 05/21/2010 307.47 SI PARASOMNIA 05/21/2010 GRACE JONES DO 307.47 SI PARASOMNIA 05/21/2010 BANDAR ANDERSON PSYD 307.47 SI PARASOMNIA 05/21/2010 307.47 SI PARASOMNIA 05/21/2010 GRACE JONES DO F 307.47 SI PARASOMNIA 05/21/2010 PJ PALOMARES MD 307.47 SI PARASOMNIA 05/21/2010 AIMEE INSPECTOR OPTICAL INSTRUMENT, CARMEN 307.47 SI PARASOMNIA 05/21/2010 AIMEE INSPECTOR OPTICAL INSTRUMENT, CARMEN 307.47 SI PARASOMNIA 05/21/2010 RANJIT SOTO PHD 307.47 SI PARASOMNIA 05/21/2010 AIMEE INSPECTOR OPTICAL INSTRUMENT, CARMEN 307.47 SI PARASOMNIA 08/28/2010 307.89 OTHER PAIN DISORDER RELATED TO PSYCHOLOGICAL FACTORS 08/28/2010 GRACE JONES DO F 307.89 OTHER PAIN DISORDER RELATED TO PSYCHOLOGICAL FACTORS 08/28/2010 BANDAR ANDERSON PSYD 307.89 OTHER PAIN DISORDER RELATED TO PSYCHOLOGICAL FACTORS 08/28/2010 307.89 OTHER PAIN DISORDER RELATED TO PSYCHOLOGICAL FACTORS 08/28/2010 GRACE JONES DO F 307.89 OTHER PAIN DISORDER RELATED TO PSYCHOLOGICAL FACTORS 08/28/2010 PJ PALOMARES MD 307.89 OTHER PAIN DISORDER RELATED TO PSYCHOLOGICAL FACTORS 08/28/2010 AIMEE INSPECTOR OPTICAL INSTRUMENT, CARMEN 307.89 OTHER PAIN DISORDER RELATED TO PSYCHOLOGICAL FACTORS 08/28/2010 AIMEE INSPECTOR OPTICAL INSTRUMENT, CARMEN 307.89 OTHER PAIN DISORDER RELATED TO PSYCHOLOGICAL FACTORS 08/28/2010 RANJIT SOTO PHD 307.89 OTHER PAIN DISORDER RELATED TO PSYCHOLOGICAL FACTORS 08/28/2010 AIMEE INSPECTOR OPTICAL INSTRUMENT, CARMEN 307.89 OTHER PAIN DISORDER RELATED TO PSYCHOLOGICAL FACTORS 01/13/2012 309.81 AN PTSD 01/13/2012 GRACE JONES DO F 309.81 AN PTSD 01/13/2012 BANDAR ANDERSON PSYD 309.81 AN PTSD 01/13/2012 309.81 AN PTSD 01/13/2012 GRACE JONES DO F 309.81 AN PTSD 01/13/2012 PJ PALOMARES MD 309.81 AN PTSD 01/13/2012 CARMEN YU APRN 309.81 AN PTSD 01/13/2012 CARMEN YU APRN 309.81 AN PTSD 01/13/2012 CHARLES PHD, RANJIT Holland 309.81 AN PTSD 01/13/2012 CARMEN YU APRN 309.81 AN PTSD 11/04/2012 GRACE JONES DO F 300.82 SO SOMATOFORM NOS 11/04/2012 GRACE JONES DO F 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 11/04/2012 BANDAR ANDERSON PSYD ANN L 300.82 SO SOMATOFORM NOS 11/04/2012 BANDAR ANDERSON PSYD ANN L 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 11/04/2012 300.82 SO SOMATOFORM NOS 11/04/2012 301.4 OBSESSIVE- COMPULSIVE PERSONALITY DISORDER 11/04/2012 GRACE JONES DO F 300.82 SO SOMATOFORM NOS 11/04/2012 GRACE JONES DO F 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 11/04/2012 PJ PALOMARES MD 300.82 SO SOMATOFORM NOS 11/04/2012 PJ PALOMARES MD 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 11/04/2012 CARMEN YU APRN 300.82 SO SOMATOFORM NOS 11/04/2012 CARMEN YU APRN 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 11/04/2012 CARMEN YU APRN 300.82 SO SOMATOFORM NOS 11/04/2012 CARMEN YU APRN 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 11/04/2012 CHARLES PHD, RANJIT Holland 300.82 SO SOMATOFORM NOS 11/04/2012 CHARLES CORRALES, RANJIT Holland 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 11/04/2012 IAMEE ROMAN CARMEN 300.82 SO SOMATOFORM NOS 11/04/2012 CARMEN YU APRN 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 03/21/2013 ADI NAVARRETE, LAUREANO Holland Ot 280.9 IRON DEFIC ANEMIA NOS 03/21/2013 ADI NAVARRETE, LAUREANO Holland Ot 535.40 OTH SPECIFIED GASTRITIS,W/O MENTION OF H 03/21/2013 ADI NAVARRETE, LAUREANO Holland Ot 569.3 RECTAL ANAL HEMORRHAGE 08/13/2014 Ot V07.4 08/13/2014 Ot V58.69 08/13/2014 Ot V82.81 08/13/2014 Ot 780.79 08/13/2014 Ot V07.4 08/13/2014 Ot V58.69 08/13/2014 Ot V82.81 08/13/2014 Ot 780.79 08/13/2014 LAUREANO JOSHI MD Ot V72.84 09/19/2014 TATIANA NAVARRETE, ERICKA Nunez Ot 611.0 10/25/2014 Ot V07.4 10/25/2014 Ot V58.69 10/25/2014 Ot V82.81 10/25/2014 Ot 780.79 10/25/2014 LAUREANO JOSHI MD Ot V72.84 10/25/2014 TATIANA NAVARREET, ERICKA Nunez Ot 611.0 10/26/2014 Ot V07.4 10/26/2014 Ot V58.69 10/26/2014 Ot V82.81 10/26/2014 Ot 780.79 10/26/2014 LAUREANO JOSHI MD Ot V72.84 10/26/2014 TATIANA NAVARRETE, ERICKA Nunez Ot 611.0 11/12/2014 Ot 780.79 11/12/2014 LAUREANO JOSHI MD Ot V72.84 11/12/2014 TATIANA NAVARRETE, ERICKA Nunez Ot 611.0 12/07/2014 AIMEECARMEN STEVENS APRN 300.81 SOMATIZATION DISORDER 12/20/2014 Ot 721.0 12/20/2014 Ot 721.3 12/28/2014 Ot 721.0 12/28/2014 Ot 721.3 07/27/2017 LUIS E MUIR W 295.90 UNSPECIFIED SCHIZOPHRENIA, UNSPECIFIED STATE 07/27/2017 LUIS E MUIR F20.9 SCHIZOPHRENIA, UNSPECIFIED 07/27/2017 LUIS E MUIR W 295.90 UNSPECIFIED SCHIZOPHRENIA, UNSPECIFIED STATE 07/27/2017 LUIS E MUIR F20.9 SCHIZOPHRENIA, UNSPECIFIED 07/27/2017 LUIS E MUIR W 295.90 UNSPECIFIED SCHIZOPHRENIA, UNSPECIFIED STATE 07/27/2017 LUIS E MUIR F20.9 SCHIZOPHRENIA, UNSPECIFIED 07/27/2017 LUIS E MUIR W 295.90 UNSPECIFIED SCHIZOPHRENIA, UNSPECIFIED STATE 07/27/2017 WHITE, LUIS E W 780.1 HALLUCINATIONS 07/27/2017 WHITE, LUIS E Clancy F20.9 SCHIZOPHRENIA, UNSPECIFIED 07/27/2017 WHITE, LUIS E Aston R44.3 HALLUCINATIONS, UNSPECIFIED 07/27/2017 WHITE, LUIS E W 295.90 UNSPECIFIED SCHIZOPHRENIA, UNSPECIFIED STATE 07/27/2017 WHITE, LUIS E Clancy 780.1 HALLUCINATIONS 07/27/2017 WHITE, LUIS E Clancy F20.9 SCHIZOPHRENIA, UNSPECIFIED 07/27/2017 WHITE, LUIS E Aston R44.3 HALLUCINATIONS, UNSPECIFIED 07/29/2017 WHITE, LUIS E W 295.90 UNSPECIFIED SCHIZOPHRENIA, UNSPECIFIED STATE 07/29/2017 WHITE, LUIS E W 780.1 HALLUCINATIONS 07/29/2017 WHITE, LUIS E Clancy F20.9 SCHIZOPHRENIA, UNSPECIFIED 07/29/2017 WHITE, LUIS E Clancy R44.3 HALLUCINATIONS, UNSPECIFIED 08/05/2017 WHITE, LUIS E Clancy 244.9 08/05/2017 WHITELUIS E 250.00 08/05/2017 LUIS E MUIR 266.2 OTHER B-COMPLEX DEFICIENCIES 08/05/2017 WHITE LUIS E Aston 295.90 UNSPECIFIED SCHIZOPHRENIA, UNSPECIFIED STATE 08/05/2017 WHITELUIS E 296.20 08/05/2017 LUIS E MUIR 300.02 08/05/2017 LUIS E MUIR 310.9 08/05/2017 LUIS E MUIR 338.2 CHRONIC PAIN 08/05/2017 LUIS E MUIR 401.0 08/05/2017 WHITELUIS E 564.00 08/05/2017 LUIS E MUIR 780.1 HALLUCINATIONS 08/05/2017 LUIS E MUIR E03.9 HYPOTHYROIDISM, UNSPECIFIED 08/05/2017 LUIS E MUIR E11.9 TYPE 2 DIABETES MELLITUS WITHOUT COMPLICATIONS 08/05/2017 LUIS E MUIR E53.8 DEFICIENCY OF OTHER SPECIFIED B GROUP VITAMINS 08/05/2017 LUIS E MUIR 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 08/05/2017 LUIS E MUIR F20.9 SCHIZOPHRENIA, UNSPECIFIED 08/05/2017 LUIS E MUIR F32.9 MAJOR DEPRESSIVE DISORDER, SINGLE EPISODE, UNSPECIFIED 08/05/2017 LUIS E MUIR F41.1 08/05/2017 LUIS E MUIR G89.29 OTHER CHRONIC PAIN 08/05/2017 LUIS E MUIR I10 ESSENTIAL (PRIMARY) HYPERTENSION 08/05/2017 WHITE, LUIS E W K59.09 OTHER CONSTIPATION 08/05/2017 LUIS E MUIR W R44.3 HALLUCINATIONS, UNSPECIFIED 10/07/2017 ADI NAVARRETE, LAUREANO Holland Ot V72.84 EXAM PRE-OPERATIVE NOS 10/07/2017 TATIANA NAVARRETE, ERICKA Nunez Ot 611.0 INFLAM DISEASE OF BREAST 10/07/2017 Ot 721.0 CERVICAL SPONDYLOSIS 10/07/2017 Ot 721.3 LUMBOSACRAL SPONDYLOSIS 10/08/2017 OH REZA INSPECTOR OPTICAL INSTRUMENT Ot R16.0 HEPATOMEGALY, NOT ELSEWHERE CLASSIFIED 10/08/2017 OH REZA INSPECTOR OPTICAL INSTRUMENT Ot R74.0 NONSPEC ELEV OF LEVELS OF TRANSAMNS LA 10/08/2017 OH REZA INSPECTOR OPTICAL INSTRUMENT Ot Z90.49 ACQUIRED ABSENCE OF OTHER SPECIFIED PART 10/08/2017 OH REZA INSPECTOR OPTICAL INSTRUMENT Ot R16.0 HEPATOMEGALY, NOT ELSEWHERE CLASSIFIED 10/08/2017 OH REZA APRN Ot R74.0 NONSPEC ELEV OF LEVELS OF TRANSAMNS LA 10/08/2017 OH REZA INSPECTOR OPTICAL INSTRUMENT Ot Z90.49 ACQUIRED ABSENCE OF OTHER SPECIFIED PART 10/29/2017 OH REZA INSPECTOR OPTICAL INSTRUMENT Ot R16.0 HEPATOMEGALY, NOT ELSEWHERE CLASSIFIED 10/29/2017 OH REZA INSPECTOR OPTICAL INSTRUMENT Ot R74.0 NONSPEC ELEV OF LEVELS OF TRANSAMNS LA 10/29/2017 OH REZA INSPECTOR OPTICAL INSTRUMENT Ot Z90.49 ACQUIRED ABSENCE OF OTHER SPECIFIED PART 11/03/2017 OH REZA INSPECTOR OPTICAL INSTRUMENT Ot R16.0 HEPATOMEGALY, NOT ELSEWHERE CLASSIFIED 11/03/2017 OH REZA INSPECTOR OPTICAL INSTRUMENT Ot R74.0 NONSPEC ELEV OF LEVELS OF TRANSAMNS LA 11/03/2017 OH REZA INSPECTOR OPTICAL INSTRUMENT Ot Z90.49 ACQUIRED ABSENCE OF OTHER SPECIFIED PART 03/29/2018 ADI NAVARRETE, LAUREANO Holland Ot V72.84 EXAM PRE-OPERATIVE NOS 03/29/2018 ERICKA SIMPSON MD Ot 611.0 INFLAM DISEASE OF BREAST 03/29/2018 Ot 721.0 CERVICAL SPONDYLOSIS 03/29/2018 Ot 721.3 LUMBOSACRAL SPONDYLOSIS 03/29/2018 OH REZA INSPECTOR OPTICAL INSTRUMENT Ot R16.0 HEPATOMEGALY, NOT ELSEWHERE CLASSIFIED 03/29/2018 OH REZA INSPECTOR OPTICAL INSTRUMENT Ot R74.0 NONSPEC ELEV OF LEVELS OF TRANSAMNS LA 03/29/2018 OH REZA INSPECTOR OPTICAL INSTRUMENT Ot Z90.49 ACQUIRED ABSENCE OF OTHER SPECIFIED PART Procedures Code Description [place] [address] PSYTX PT&/FAMILY 45 MINUTES 10/03/2012 97825 PSYTX PT&/FAMILY 45 MINUTES 12/13/2012 46178 PSYTX PT&/FAMILY 45 MINUTES 02/09/2013 26522 PSYCH DIAGNOSTIC EVALUATION 08/01/2014 Results Test Result Range VIT B-12 - 07/27/17 18:35 Vitamin B12 1410.00 pg/mL 213.00-816.00 Vitamin D, 25 OH - 07/27/17 18:35 Vitamin D, 25 OH 44.00 ng/mL 25.00-100.00 Lipid Panel - 07/28/17 05:25 C/HDL 5.0 3.7-6.7 Cholesterol 169 mg/dL 100-240 HDL 34 mg/dL 30-85 LDL-Calculated 109 mg/dL 0-100 Trig 128 mg/dL 35-160 VLDL 26 mg/dL 0-42 Encounters ACCT No. Visit Date/Time Discharge Status Pt. Type Provider Facility Loc./Unit Complaint [id number] 12/07/2014 15:25:00 12/07/2014 23:59:59 CLS Outpatient CARMEN YU APRN [id number] 08/01/2014 10:00:00 08/01/2014 23:59:59 CLS Outpatient CHARLES CORRALES, RANJIT Holland [id number] 07/27/2014 13:41:00 07/27/2014 23:59:59 CLS Outpatient CARMEN YU APRN [id number] 12/12/2013 15:07:00 12/12/2013 23:59:59 CLS Outpatient CARMEN YU APRN [id number] 12/12/2013 15:07:00 12/12/2013 23:59:59 CLS Outpatient PJ PALOMARES MD [id number] 03/03/2013 15:29:00 03/03/2013 23:59:59 CLS Outpatient GRACE JONES DO [id number] 12/08/2012 15:24:00 12/08/2012 23:59:59 CLS Outpatient BANDAR ANDERSON PSYD [id number] 11/04/2012 15:35:00 11/04/2012 23:59:59 CLS Outpatient GRACE JONES DO [id number] 10/03/2012 15:02:00 10/03/2012 23:59:59 CLS Outpatient [id number] 02/07/2013 14:53:00 Document Registration [id number] 07/29/2017 09:55:43 07/29/2017 23:59:59 CLS Outpatient [id number] 08/27/2017 09:00:00 01/21/2018 11:15:00 DIS Outpatient Michelle Alves [id number] 07/27/2017 17:38:00 08/05/2017 10:32:00 DIS Inpatient WOOD, [facility] RYAN [id number] 07/27/2017 22:54:18 Document Registration [id number] 04/20/2018 17:40:00 04/20/2018 23:59:59 CLS Outpatient Andrea Yang [facility] [id number] 10/07/2017 07:20:00 10/07/2017 23:59:59 CLS Outpatient OH REZA APRN [facility] RAD ELAVATED LIVER ENZYMES [id number] 09/03/2017 13:40:00 09/03/2017 23:59:59 CLS Preadmit ANDREA YANG MD [facility] REHAB NECK PAIN/MUSCLE SPASMS [id number] 08/20/2014 13:28:00 08/20/2014 23:59:59 CLS Outpatient ERICKA SIMPSON MD [facility] RAD GALCTERA [id number] 03/21/2013 07:22:00 03/21/2013 11:20:00 DIS Outpatient LAUREANO JOSHI MD [facility] SDC FE DEFANEMIA [id number] 03/15/2013 09:29:00 03/15/2013 23:59:59 CLS Outpatient LAUREANO JOSHI MD [facility] PREOP ANEMIA [id number] 06/02/2018 10:53:00 ACT Outpatient Enrique ROSAS MD [facility] CATH CHEST PAIN,ABN NUCLEAR STRESS TEST [id number] 11/27/2014 15:02:00 Document Registration [id number] 05/11/2011 08:16:00 Document Registration [id number] 02/21/2010 14:50:00 Document Registration [id number] 06/06/2009 11:15:00 Document Registration [id number] 05/09/2009 14:35:00 Document Registration
[2018-06-02 12:16] LABS: ALANINE AMINOTRANSFERASE 35 U/L (0-55); ALBUMIN 4.3 GM/DL (3.2-4.5); ALKALINE PHOSPHATASE 158 U/L (40-136); BILIRUBIN,TOTAL 0.4 MG/DL (0.1-1.0); BUN/CREATININE RATIO 21; CALCIUM 9.9 MG/DL (8.5-10.1); CARBON DIOXIDE 23 MMOL/L (21-32); CHLORIDE 101 MMOL/L (98-107); CHOLESTEROL 346 MG/DL (< 200); CREATININE SERUM 0.82 MG/DL (0.60-1.30); GFR ESTIMATED > 60; GLUCOSE 107 MG/DL (70-105); HDL CHOLESTEROL 56 MG/DL (40-60); SODIUM 138 MMOL/L (135-145); TOTAL PROTEIN 7.3 GM/DL (6.4-8.2); TRIGLYCERIDES 401 MG/DL (<150); VLDL CHOLESTEROL 80 MG/DL (5-40)
[2018-06-02] MEDS ORDERED: [UNRECOGNIZED DRUG - CODE] PO (12:21)
[2018-06-02] MEDS ORDERED: fentaNYL INJECTION 100 MCG/2 ML AMP ONE (12:57)
[2018-06-02] MEDS ORDERED: MIDAZOLAM 5 MG/5 ML (VERSED) VIAL ONE (12:57)
[2018-06-02] MEDS ORDERED: VERAPAMIL 5 MG/2 ML (CALAN) VIAL IV ONE (12:57)
[2018-06-02] MEDS ORDERED: NITRO DRIP 25000 MCG/D5W 250 ML IV ONE (12:58)
--- NOTE | 2018-06-02 14:06 | Coronary Angiography Report ---
Coronary Angiography Report DATE OF PROCEDURE: 06/02/18 INDICATION: Chest pain, familial hyperlipidemia, abnormal nuclear stress test. PREOPERATIVE DIAGNOSIS: Chest pain, familial hyperlipidemia, abnormal nuclear stress test. POSTOPERATIVE DIAGNOSIS: Mild CAD. HISTORY: This is a 57-year-old lady with likely familial hyperlipidemia and significant family history of premature CAD. She presents with recurrent episodes of chest pain. Nuclear stress test was abnormal. Therefore, the patient was scheduled for coronary angiography. PROCEDURES PERFORMED: 1.Coronary angiography. 2.Left heart catheterization. 3. Aortic arch angiogram. COMPLICATIONS: None. SPECIMENS: None. ESTIMATED BLOOD LOSS: 10 mL ANESTHESIA: Conscious sedation ANTICOAGULATION: IV heparin CONTRAST: 100 mL. FLUOROSCOPY: 7.1 minutes. FLOUROSCOPY DOSE: 388 mgy. PROCEDURE DETAILS: The patient is a 57 female and was brought to the collaborative physician after informed consent was taken. All the risks and complications were explained in detail; this included the risk of bleeding, vascular damage, stroke , [place] and even . The patient was draped and prepped in the usual sterile fashion. Access was gained in the right radial artery with a 6 [place] sheath. Coronary angiography and left heart catheterization was performed with the [place] catheter. Right coronary angiogram was done with a JR4 catheter. Aortic arch and a gram was performed with a JR4 catheter. FINDINGS: 1.Left main: Patent. 2.LAD: Patent. 3.Left circumflex artery: Patent. 4.RCA: Mild proximal disease. 5.Left heart catheterization: Aortic pressure 104/65 mmHg. LV pressure 95/17 mmHg. LVEDP 17 mmHg. Normal LV function with no mall motion abnormalities. No gradient across the aortic valve. 6. Aortic arch angiogram: No evidence of dissection or aneurysm. Patent proximal segments of the great arteries including brachycephalic artery, common carotid artery, right subclavian artery. CONCLUSIONS: Mild CAD. Continue aggressive secondary prevention measures. Umer Sparrow MD, FACP, FACC, [facility] Interventional Cardiology Enrique SPARROW MD Jun 02, 2018 2:06 pm
--- NOTE | 2018-06-02 14:09 | Discharge Inst-Post CATH ---
Discharge Inst-CATH Post Cardiac Cath D/C Inst Follow Up/Plan Dr Sparrow in four weeks. CARDIAC CATH DISCHARGE INSTRUCTIONS *Hold Metformin for 48 hours post heart cath. ACTIVITY * Go Home directly and rest. * Limit activity of the leg (or wrist if it was used) for 7 days including aerobics, swimming, jogging, bicycling, etc. * Restrict stair-climbing for 7 days if possible, if not, climb up with your non -cath leg, then bring together on the same step. * Avoid lifting, pushing, pulling or excessive movement of the affected extremity for 7 days. * Customary sexual activity may be resumed after 2 days-use caution not to use a position that strains or causes pain to the affected extremity. * No driving for 24 hours. * NO SMOKING. * Avoid straining for bowel movements for 7 days. * Gentle walking on level ground is allowed. * Returning to work will depend on the type of procedure and the results. Your doctor will discuss this with you. CALL YOUR DOCTOR FOR ANY OF THE FOLLOWING: *If bleeding from the puncture site occurs- Apply gentle pressure to site with clean cloth and call your doctor or EMS. * If a knot or lump forms under the skin, increases in size, or causes pain. * If bruising appears to be worsening or moving further down your leg instead of disappearing. * Temperature above 101 F. CARE OF YOUR GROIN INCISION; * Bruising or purple discoloration of the skin near the puncture site is common. * You may shower only, no bathtub bathing for 5 days. Be careful to avoid slipping as your leg may feel stiff. * If a closure device was used on your femoral artery, please see the attached guide regarding care of the device and your leg. * REMOVE the dressing from your groin the next day after your procedure in the shower. CARE OF YOUR WRIST INCISION; * Bruising or purple discoloration of the skin near the puncture site is common. * You may shower. * DO NOT submerge wrist. * Remove dressing in 24 hours. Enrique SPARROW MD Jun 02, 2018 2:08 pm
--- NOTE | 2018-06-02 14:10 | Cardiology Discharge Summary ---
Diagnosis/Chief Complaint Date of Admission 06/02/2018 Date of Discharge 06/02/2018 Admission Diagnosis Chest pain, abnormal nuclear stress test Final/Discharge Diagnosis Mild CAD Chief Complaint/HPI Chief Complaint/HPI This is a 57-year-old lady with likely familial hyperlipidemia and significant family history of premature CAD. She presents with recurrent episodes of chest pain. Nuclear stress test was abnormal. Therefore, the patient was scheduled for coronary angiography. Discharge Summary Procedures Coronary angiography showed mild disease in proximal RCA. Patent left coronary system. Discharge Physical Examination Stable. Hospital Course Unremarkable. Pending Labs Laboratory Tests 06/02/18 11:00: White Blood Count 7.2, Red Blood Count 4.56, Hemoglobin 13.6, Hematocrit 41, Mean Corpuscular Volume 90, Mean Corpuscular Hemoglobin 30, Mean Corpuscular Hemoglobin Concent 33, Red Cell Distribution Width 13.8, Platelet Count 309, Mean Platelet Volume 9.6, Prothrombin Time 12.7, INR Comment 1.0, Activated Partial Thromboplast Time 25, Sodium Level 138, Potassium Level 4.0, Chloride Level 101, Carbon Dioxide Level 23, Anion Gap 14, Blood Urea Nitrogen 17, Creatinine 0.82, Estimat Glomerular Filtration Rate > 60, BUN/Creatinine Ratio 21, Glucose Level 107, Calcium Level 9.9, Corrected Calcium 9.7, Total Bilirubin 0.4, Aspartate Amino Transf (AST/SGOT) 30, Alanine Aminotransferase ( ALT/SGPT) 35, Alkaline Phosphatase 158, Total Protein 7.3, Albumin 4.3, Triglycerides Level 401, Cholesterol Level 346, LDL Cholesterol Direct 225, VLDL Cholesterol 80, HDL Cholesterol 56 Discussion & Recommendations Discussion Discussed with the patient. We will follow-up in one month. Follow up appt.: Dr. Sparrow in one month. Dicharge Diet: Cardiac Diet Activity as Tolerated: Yes Home Medications Reviewed patient Home Medication Reconciliation performed by pharmacy medication reconciliations dental laboratory technician apprentice and/or nursing. Patients Allergies have been reviewed. Discharge Home Medications: Reviewed and agree with Discharge Medication list on patient's Discharge Instruction sheet Condition at discharge Stable Instructions to patient/family Dr Sparrow in four weeks. Enrique SPARROW MD Jun 02, 2018 2:10 pm
[2018-06-02] MEDS ORDERED: PATIENT MAY USE OWN MEDS, ALL PO SCH (14:15)
== END 2018-06-02 16:35 | disposition home or self-care (01) ==
LOC: CATH 10:53 → SDC 14:20 → CATH 16:35
PROVIDERS: ATTEND Internal Medicine Interventional Cardiology
DX: I25.10 Atherosclerotic heart disease of native coronary artery without angina pectoris (principal); E78.4 Other hyperlipidemia; R94.39 Abnormal result of other cardiovascular function study; E11.9 Type 2 diabetes mellitus without complications; Z82.49 Family history of ischemic heart disease and other diseases of the circulatory system; Z79.84 Long term (current) use of oral hypoglycemic drugs
CPT/HCPCS: 36415; 80053; 80061; 85027; 85610; 85730; 87081; 93458

== ENCOUNTER → 2021-11-20 | Outpatient (CLI) | payer BC, MEDICARE ==
[~2021-11-20] MED LIST changes: +ARIP10TA55 PO; +ATOR10TA PO; +BENZ0.5T42 PO; +BREX0.5T PO; +CANA100T PO; +DOCU-143 PO; +DOXE10CA29 PO; +DULO60CA59 PO; +GADOTERATE 0.5 MMOL/ML (CLARISCAN) 20 ML VIAL IV ONE; +LEVO75TA6 PO; +MELA3TAB39 PO; +METF-397 PO; +METH-732 PO; +ONDA8TAB13 PO; +OXYC10TA7 PO; +PANT40TA2 PO; +POLY17PO6 PO; +PREG150C PO; +RIVA1PAT TD; +ROSU10TA28 PO; +TR025C15 TP; +[UNRECOGNIZED DRUG - CODE] PO
--- NOTE | 2021-11-20 14:26 | Diagnostic Imaging Report ---
PROCEDURE: MR imaging of the brain with and without contrast. TECHNIQUE: Multiplanar, multisequence MR imaging of the brain was performed with and without contrast. INDICATION: Memory problems. No prior studies are available for comparison. FINDINGS: The ventricular size and sulcal pattern are prominent consistent with cerebral volume loss. There is occasional periventricular white matter changes noted. No acute intra-axial or extra-axial hemorrhage is detected. No abnormal enhancement following contrast administration is seen. Corpus callosum is unremarkable. The sella and parasellar structures are unremarkable. There is no diffusion restriction to suggest acute ischemia. The normal expected flow-voids within the carotid siphons are seen. IMPRESSION: Cerebral volume loss and mild periventricular white matter changes noted. No acute intracranial process is detected. Dictated by: Dictated on workstation # [id number]
== END ==
LOC: RAD 13:15
PROVIDERS: ATTEND Family Medicine
DX: G31.9 Degenerative disease of nervous system, unspecified (principal)
CPT/HCPCS: 70553

== ENCOUNTER 2021-11-24 05:28 | Outpatient (RCR) | payer BC, MEDICARE ==
[~2021-11-24] VITALS: Ht 167.6 cm; Wt 86.6 kg
[~2021-11-24 05:28] MED LIST changes: -GADOTERATE 0.5 MMOL/ML (CLARISCAN) 20 ML VIAL IV ONE
[2021-11-26] MEDS ORDERED: OMEP40CA6 PO (11:29)
== END 2021-11-24 08:20 | disposition home or self-care (01) ==
LOC: PREOP 05:28
PROVIDERS: ATTEND Surgery
DX: Z01.812 Encounter for preprocedural laboratory examination (principal); Z20.822 Contact with and (suspected) exposure to COVID-19
CPT/HCPCS: 87636

== ENCOUNTER 2021-11-26 10:36 | Day surgery (SDC) | payer MEDICARE, OTHER ==
[~2021-11-26] VITALS: Ht 168 cm; Wt 86.6 kg
[2021-11-26] MEDS ORDERED: LACTATED RINGERS 1,000 ML IV STA (10:39)
[2021-11-26] MEDS ORDERED: LACTATED RINGERS 1,000 ML IV ONE (10:39)
[2021-11-26] MEDS ORDERED: LIDOCAINE JELLY 2% 6 ML SYRINGE MM PRN (10:45)
[2021-11-26] MEDS ORDERED: HURRICAINE EXT TUBE (BENZOCAINE) XX PRN (10:45)
[2021-11-26 11:05] VITALS: BP 137/78
--- NOTE | 2021-11-26 11:28 | Progress Note-Pre Operative ---
Pre-Operative Progress Note H&P Reviewed The H&P was reviewed, patient examined and no changes noted. Date Seen by Provider: Nov 26, 2021 Time Seen by Provider: 11:00 Date H&P Reviewed: Nov 26, 2021 Time H&P Reviewed: 11:00 Pre-Operative Diagnosis: epigastric pain, GERD PRACHI JUSTICE MD Nov 26, 2021 11:28
[2021-11-26] MEDS ORDERED: OMEP40CA6 PO (11:29)
[2021-11-26] MEDS ORDERED: ONDANSETRON 4 MG/2 ML (SDV) Z0FRAN IVP PRN (11:30)
[2021-11-26] MEDS ORDERED: ONDANSETRON 4 MG (ZOFRAN) ORAL DISSOLVE TAB PO PRN (11:30)
--- NOTE | 2021-11-26 11:30 | Discharge Inst-Surgical ---
D/C Lap Instructions-KIDO New, Converted, or Re-Newed RX: RX on Chart Follow Up Activity as tolerated High Fiber Diet 25g or more per day Avoid Alcohol, Caffeine, Spicy [place] and Acid foods. Drink 64 fluid oz or more of fluids per day. Symptoms to Report: Fever over 101 degree F, Nausea/Vomiting If any problems/questions: Contact your physician or go to Emergency Room PRACHI JUSTICE MD Nov 26, 2021 11:30
[2021-11-26] MEDS ORDERED: MIDAZOLAM 2 MG/2 ML (VERSED) VIAL ONE (12:29)
[2021-11-26] MEDS ORDERED: proPOfol 200 MG/20 ML (DIPRIVAN) VIAL IV ONE (12:30)
[2021-11-26 12:55] VITALS: BP 130/71
[2021-11-26 13:00] VITALS: BP 138/82
--- NOTE | 2021-11-26 13:09 | Progress Note-Post Operative ---
Post-Operative Progess Note Surgeon (s)/[place] Artist (s) Surgeon PRACHI JUSTICE MD [place] Artist: none Pre-Operative Diagnosis epigastric pain, GERD Post-Operative Diagnosis reflux esophagitis(grade B-C), mild dist esoph stricture, intact wrap, moderate gastritis. Procedure & Operative Findings Date of Procedure 11/26/21 Procedure Performed/Findings EGD with bx and balloon dilatation. Anesthesia Type mac Estimated Blood Loss Estimated blood loss (mL): minimal Specimens/Packing Specimens Removed ge jxn, antrum PRACHI JUSTICE MD Nov 26, 2021 13:09
[2021-11-26 13:20] VITALS: BP 142/82
[2021-11-26 13:48] VITALS: BP 142/82
--- NOTE | 2021-11-26 14:33 | Anesthesia-General Post-Op ---
MAC Patient Condition Mental Status/LOC: Same as Preop Cardiovascular: Satisfactory Nausea/Vomiting: Absent Respiratory: Satisfactory Pain: Controlled Complications: Absent Post Op Complications Complications None Follow Up Care/Instructions Patient Instructions None needed. Anesthesiology Discharge Order Discharge Order Patient was doing well after the procedure, no complaints, stable vital signs, no apparent adverse anesthesia problems. CEZAR LUCERO DO Nov 26, 2021 14:32
--- NOTE | 2021-11-26 19:10 | OPERATIVE REPORT ---
DATE OF SERVICE: 11/26/2021 ATTENDING PRIMARY CARE PHYSICIAN: Magnolia Yang MD PREOPERATIVE DIAGNOSIS: Epigastric pain. POSTOPERATIVE DIAGNOSES: Reflux esophagitis, [place] between grade B and C with a mild distal esophageal stricture, no recurrent hiatal hernia and intact previous wrap, moderate gastritis. No distal obstructions. PROCEDURE: EGD with biopsy and balloon dilatation. SURGEON: Prachi Justice MD. ANESTHESIA: Monitored anesthesia care. ESTIMATED BLOOD LOSS: Minimal. FINDINGS: Same as postoperative diagnoses. DISPOSITION: The patient tolerated the procedure well. INDICATIONS: The patient is a 61-year-old female referred over to us for intermittent episodes of epigastric pain as well as neurology. She was accompanied by her sister who had reported that she does have confusion and was diagnosed with an early onset Alzheimer disease 6 months ago. She has had these issues with pain in the epigastric region as well as what she states as nausea and does have a history of reflux and is on Protonix; however, after the procedure it appears that she has had hernia repair as well as an antireflux procedure. She is also status post laparoscopic cholecystectomy as well. DESCRIPTION OF PROCEDURE: The patient was brought to the endoscopy suite, laid in the left lateral decubitus position. After adequate IV pain and sedative medications and monitored anesthesia care, the mouthpiece was applied. The endoscope was placed in the mouth, visualizing the pharynx and hypopharyngeal region. Vocal cords, epiglottis and vallecula identified and appeared to be normal. The endoscope was then gently intubated into the esophageal opening and esophagus insufflated. The endoscope was then advanced through the first, second and third portion of esophagus at the level of the GE junction, reflux esophagitis, [place] between grade B and C identified with a mild distal esophageal stricture. A biopsy was taken with forceps with visualization of good hemostasis. The endoscope was then advanced in the stomach and endoscope retroflexed, visualizing postsurgical anatomic changes consistent with a previous hiatal hernia repair as well as an antireflux procedure, which appeared to be completely intact. There was a moderate gastritis. No formal ulcerations, polyps, or any neoplasms. A biopsy was taken of the antrum to rule out H. pylori with visualization of good hemostasis. The endoscope was then advanced to the pylorus and the first and second portion of the duodenum, which appeared normal with no distal obstructions. The balloon was then placed in the stomach and pulled back to the area of stricture. We then proceeded in a gradual stepwise fashion from 2, 4, then eventually 6 atmospheres of pressure with moderate resistance or 20 mm in luminal diameter and left this in place for 60 seconds. The balloon was then desufflated and removed with visualization of good hemostasis as well as no mucosal tears. The endoscope was then slowly withdrawn while taking a second look and suctioning of residual air with no additional findings. The patient tolerated the procedure well. We will recommend the necessary lifestyle and dietary accommodation including small and more frequent meals, avoidance of eating at night as well as head elevation while lying supine. She also needs to avoid caffeinated beverages, spicy, greasy and acidic foods. She is already on Protonix 40 mg daily; however, we will proceed with a 3-month trial of adding omeprazole 40 mg daily to be taken at a different time during the day. Job ID: [id number] DocumentID: [id number] Dictated Date: 11/26/2021 13:01:38 Manager General Date: 11/26/2021 19:09:42 Dictated By: PRACHI JUSTICE MD MTDD
== END 2021-11-26 13:48 | disposition home or self-care (01) ==
LOC: ENDO 10:36
PROVIDERS: ATTEND Surgery
DX: K21.00 Gastro-esophageal reflux disease with esophagitis, without bleeding (principal); K22.2 Esophageal obstruction; K29.50 Unspecified chronic gastritis without bleeding; G30.0 Alzheimer's disease with early onset; F02.80 Dementia in other diseases classified elsewhere, unspecified severity, without behavioral disturbance, psychotic disturbance, mood disturbance, and anxiety; Z79.899 Other long term (current) drug therapy
CPT/HCPCS: 88305

== ENCOUNTER → 2023-07-26 | Outpatient (CLI) | payer MEDICARE, OTHER ==
[~2023-07-26] MED LIST changes: -BENZ0.5T42 PO; +BENZ0.5T43 PO; +OMEP40CA6 PO
--- NOTE | 2023-07-26 16:40 | Diagnostic Imaging Report ---
INDICATION: Routine screening. COMPARISON: 08/20/2014. TECHNIQUE: 2D and 3D bilateral screening mammography was performed with CAD. FINDINGS: Scattered fibroglandular densities are identified bilaterally. The parenchymal pattern is stable. No mass or malignant-appearing microcalcifications are identified. The axillae are unremarkable. IMPRESSION: No mammographic features suspicious for malignancy are identified. ACR BI-RADS Category 1: Negative. Result letter will be mailed to the patient. Note: At least 10% of breast cancer is not imaged by mammography. Dictated by: Dictated on workstation # [id number]
== END ==
LOC: RAD 14:44
PROVIDERS: ATTEND Family Medicine
DX: Z12.31 Encounter for screening mammogram for malignant neoplasm of breast (principal)
CPT/HCPCS: 77063; 77067